=== PATIENT | female | born 1960 | race Caucasian/White ===

== ENCOUNTER → 2022-11-20 11:23 | Outpatient (REF) | payer OTHER, SELFPAY ==
[2022-11-20 13:40] LABS: Blood Urea Nitrogen 33 mg/dl (7-17); Calcium 8.5 mg/dl (8.4-10.2); Carbon Dioxide 28 mmol/L (22-30); Chloride 107 mmol/L (98-107); Glomerular Filtration Rate 41.4; Glucose 108 mg/dl (70-99); Potassium 4.2 mmol/L (3.5-5.1); Sodium 141 mmol/L (135-145)
== END ==
LOC: OLABSOL 11:23
PROVIDERS: ATTENDING PHYSICIAN Internal Medicine Interventional Cardiology; FAMILY PHYSICIAN Family Medicine
DX: R63.5 Abnormal weight gain (principal)
CPT/HCPCS: 36415; 80048

== ENCOUNTER 2023-11-09 06:38 | Inpatient (IN) | payer OTHER, SELFPAY ==
[2023-11-09] VITALS (28 sets, daily range): BP systolic 162–212; BP diastolic 77–138
--- NOTE | 2023-11-09 03:20 | ED.GENMED ---
History of Present Illness
General
Chief Complaint: Abdominal Symptoms
Source: patient and ambulance crew
Exam Limitations: none
Time Seen by Provider: 11/09/23 03:34
Travel History
Have you had any contact with someone who has COVID-19?: No
Do you have any symptoms of coronavirus? Fever > 100 degrees, chills, cough, shortness of breath, sore throat, loss of taste or smell, muscle aches, or headache?: No
History of Present Illness
History of Present Illness:
Pleasant 63-year-old female presents with nausea, vomiting, and diarrhea since 1 AM. She has been having a headache and some shortness of breath for much of the day yesterday. She noted that her blood pressure was elevated. Denies fever, chills,
or chest pain. Reports no sick contacts.
Past History
Past History
ED Past Medical History: Arrthythmia, Asthma, CHF, HTN, Hypercholesterolemia, [place], Valvular disease, Psychiatric, Other and Other
ED Past Surgical History: Gynecological, Orthopedic and Other
Patient has exhibited threatening behavior?: No
PSI?: No
Social History
Tobacco: Non-smoker
Alcohol: Former
Drug: None
Personal:
Living: assisted
Employment: Not employed
Family History
Family History: Other (Father had heart disease, mother had abdominal aortic aneurysm and also had depression. Paternal grandmother had depression)
Review of Systems
Review of Systems
Allergies reviewed?: Yes
Other source history: ambulance crew
All Other Systems: ROS reviewed and negative except as documented in HPI and ROS
ABD/GI: Reports nausea, vomiting and diarrhea
Neurological: Reports headache and weakness
Phy Exam
General Physical Exam
General Presentation: moderate distress
General age: appears older than age
General Skin: warm and dry
General Habitus: normal
General Mental: alert
General Hydration: appears well hydrated
ENT Exam
ENT Exam: EOMI, pharynx normal, neck supple and normocephalic
Eye Exam
Eye Exam: PERRL, cornea clear and conjunctiva normal
Cardiovascular Exam
Cardiovascular Exam: regular rate/rhythm
Pulmonary Exam
Pulmonary Exam: lungs clear and no respiratory distress
Gastrointestinal Exam
Gastrointestinal Exam: normal bowel sounds, non tender, soft, no organomegaly, no pulsatile mass and non distended
Neurological Exam
Neurological Exam: alert, oriented x3, no motor deficits and speech normal
Musculoskeletal Exam
Musculoskeletal Exam: other (Left upper extremity amputation and bilateral lower extremity amputation.)
Skin Exam
Skin Exam: normal color, warm/dry, no rash and no petechia
Psychiatric Exam
Psychiatric Exam: normal mood/affect
Course
Orders/Labs/Results
Orders:
Orders
11/09/23 03:18
Electrocardiogram (*1) Stat
Reason for Study: Other
Other Reason for Exam: neuro symptoms
Cardiac Monitoring- Treatment ONCE
EKG- Treatment ONCE
Dexamethasone Sod Phosphate [Decadron] 10 mg IV NOW STA
Diphenhydramine [Benadryl] 25 mg IV NOW STA
Ketorolac [Toradol] 15 mg IV NOW STA
Metoclopramide [Reglan] 10 mg IV NOW STA
11/09/23 03:29
CT Head W/o Iv Contrast Urgent
Comment:
Reason For Exam: headache HTN, vomiting
11/09/23 03:37
COVID-19 Antigen Urgent
Source: Nasal Swab
Complete Blood Count/With Diff Urgent
Comprehensive Metabolic Panel Urgent
Erythrocyte Sed Rate Urgent
Troponin I Urgent
Influenza A+B Rapid Molecular Urgent
EDU Source: Nasal Swab
Specimen Description:
11/09/23 04:21
Lorazepam [Ativan] 0.5 mg IV NOW STA
11/09/23 05:30
Admit/Transfer Patient As Directed
Co-Sign Provider:
Level of Care: Inpatient admission
Assign to:: IMU- Intermediate Care
Physician / Group: [email or web address]
Diagnosis: Acute N/V and dirrhea, HTN urgency
Reason for Hospitalization: Acute N/V and dirrhea, HTN urgency
Expected length of stay greater than two midnights?: Yes
ELOS- Estimated Length of Stay in days: 3
I certify the patient meets the requirements for IP care: Yes
11/09/23 05:33
Lorazepam [Ativan] 0.5 mg IV NOW STA
11/09/23 05:39
Code Status As Directed
Resuscitation Status: Full Code
11/09/23 05:40
Labetalol HCl [Trandate] 10 mg IV NOW STA
Abnormal Lab Results
11/09/23
03:37
WBC 14.2 H 10^3/uL
(4.8-10.8)
MCV 100.2 H fL
(81.0-99.0)
MCH 32.4 H pg
(27.0-31.0)
MCHC 32.4 L g/dL
(33.0-37.0)
MPV 10.7 H fL
(7.4-10.4)
Abs Immat Gran (auto) 0.1 H 10^3/uL
(0-0.05)
Absolute Neuts (auto) 10.6 H 10^3/uL
(1.4-6.5)
Absolute Monos (auto) 0.9 H 10^3/uL
(0.1-0.6)
Lymphocytes % 17.5 L %
(20.5-51.1)
BUN 24 H mg/dl
(7-17)
Creatinine 1.1 H mg/dL
(0.6-1.0)
Glucose 144 H mg/dl
(70-99)
Alkaline Phosphatase 149 H U/L
(38-126)
11/09/23 03:37
11/09/23 03:37
Vital Signs
Initial and Last Documented VS:
Initial Vital Signs
BP
209/102
11/09/23 03:01
Last Documented Vital Signs
Temp Pulse Resp BP Pulse Ox
98.1 F 91 18 204/95 91
11/09/23 03:05 11/09/23 04:45 11/09/23 04:45 11/09/23 04:29 11/09/23 04:45
MDM/Problems Addressed
Differential Diagnosis Includes:
Viral syndrome, migraine headache
Chronic conditions affecting care:
Migraines, strokes, A-fib, cardiac arrest, hypertension, hyperlipidemia, ACS, renal failure, renal insufficiency sepsis, DIC, anxiety, depression
*Pulse Oximetry
Patient hypoxic: no
*Critical Care Note
Total Time (30-74mins, 75-104mins- exclusive of procedures): Not Applicable
Update Note
Update Note:
Comparison July 04, 2023
CT head without contrast
IMPRESSION:
No acute intracranial abnormality. No acute territorial infarct, hemorrhage, mass effect, or midline shift. Mild micro-angiopathy.
The results were faxed/finalized only at 0435 ET. If you would like to discuss this case directly please call [phone] (extension [phone]). If you can't reach me at this number, do not leave a voicemail. Please call [phone] ext [phone] and ask for
the next available Radiologist.
Ko Beavers M.D.
This report has been electronically signed and verified by the Radiologist whose name is printed above.
ED Attending Note
-
Portions of this chart may have been created with voice recognition software.� Occasional wrong word or��sound alike� substitutions may have occurred due to the inherent limitations of voice recognition software.
Discharge Plan
Departure
Patient Disposition: Admit
Date of Disposition: 11/09/23
Time of Disposition: 05:43
Admit to: Telemetry
Presentation/result/management discussed w/ accepting MD/DO: Hospitalist
Discharge Problem:
Hypertensive urgency, Anxiety, Intractable migraine
Prescriptions:
No Action
sennosides 8.6 mg Tablet
17.2 mg PO HSPRN PRN (Reason: constipation)
trazodone 50 mg Tablet
25 mg PO HS
lorazepam 0.5 mg Tablet
0.5 mg PO BID
amitriptyline 10 mg Tablet
10 mg PO HS
pantoprazole 40 mg Tablet,Delayed Release (Dr/Ec)
40 mg PO BID
ferrous sulfate 325 mg (65 mg iron) Tablet
325 mg PO HS
gabapentin 300 mg Capsule
300 mg PO DAILY@1600
morphine 15 mg Tablet Extended Release
15 mg PO Q12H
albuterol sulfate 90 mcg/actuation Hfa Aerosol Inhaler
1 puff INHALATION R Q4HPRN PRN (Reason: sob)
duloxetine 60 mg Capsule,Delayed Release(Dr/Ec)
60 mg PO DAILY
gabapentin 600 mg Tablet
600 mg PO HS
docusate sodium 100 mg Capsule
100 mg PO DAILYPRN PRN (Reason: constipation)
gabapentin 100 mg Capsule
100 mg PO DAILY
lactulose 10 gram/15 mL Solution
15 ml PO DAILYPRN PRN (Reason: constipation)
betamethasone dipropionate 0.05 % cream
1 applic topical BIDPRN PRN (Reason: external inferior edema)
nitroglycerin 0.4 mg Tablet, Sublingual
0.4 mg SUBLINGUAL [id number] PRN (Reason: acute angina)
ergocalciferol (vitamin D2) 1,250 mcg (50,000 unit) Capsule
1,250 mcg PO FR
oxycodone 5 mg Tablet
5 mg PO Q6HPRN PRN (Reason: severe pain)
iwhcednymr-vvwnyimuchfyo-ofkw 50-300-40 mg Capsule
2 cap PO Q8HPRN PRN (Reason: headaches)
fluticasone propion-salmeterol 232-14 mcg/actuation Aerosol Powdr Breath Activated
1 inh INHALATION R BID
nifedipine 30 mg Tablet Extended Release 24hr
30 mg PO DAILY
aspirin 81 mg Tablet,Delayed Release (Dr/Ec)
81 mg PO DAILY
wurbipfnjk-mqboldnqbyrai-aort 50-325-40 mg Tablet
2 tab PO Q8HPRN PRN (Reason: headaches)
clonidine HCl 0.2 mg Tablet
0.4 mg PO BID
cyanocobalamin (vitamin B-12) 500 mcg Tablet
1,000 mcg PO DAILY
hydralazine 50 mg Tablet
50 mg PO TID
labetalol 300 mg Tablet
300 mg PO BID
prazosin 2 mg Capsule
2 mg PO HS
Rx Instructions:
07/04/2023, give with one 1 mg Prazosin capsule for a total of 3 mg HS.
rosuvastatin 10 mg Tablet
10 mg PO QPM
Cepacol Sore Throat 15-2.6 mg Lozenge
1 robina MUCOUS MEMBRANE Q6HPRN PRN (Reason: throat pain)
xzqtdqfrhd-tppfypldcsuih-rwld 50-300-40 mg Capsule
2 cap PO BID
Sore Throat (benzocaine-menth) 15-3.6 mg Lozenge
1 robina MUCOUS MEMBRANE Q2H PRN (Reason: throat pain)
prazosin 1 mg capsule
1 mg PO HS
Rx Instructions:
07/04/2023, give with one 2 mg Prazosin capsule for a total of 3 mg HS.
Referrals:
Abbie Bartholomew, DO [Family Provider] -
Interventions
Interventions:
*Risk Screen - Suicide Last Done: 11/09/23 03:09
*General Assessment Last Done: 11/09/23 03:09
*Neglect/Abuse Screening Last Done: 11/09/23 03:12
ED- Fall Risk Assessment Last Done: 11/09/23 03:12
*ED COVID-19 Vaccine History Last Done: 11/09/23 03:12
US-Vmxrse-Ypjzqfsduj Assessment Last Done: 11/09/23 03:30
[2023-11-09] MEDS: TORADOL 15 MG IV (03:25)
[2023-11-09] MEDS: REGLAN 10 MG IV (03:27)
[2023-11-09] MEDS: DECADRON 10 MG IV (03:27)
[2023-11-09] MEDS: BENADRYL 25 MG IV (03:27)
[2023-11-09 03:46] LABS: % Basophils 0.3 % (0-2); % Eosinophils 1.1 % (0-6); % Immature Granulocytes 0.4 % (0-0.5); % Lymphocytes 17.5 % (20.5-51.1); % Monocytes 6.1 % (1.7-9.3); % Neutrophils 74.6 % (42.2-75.2); Absolute Eosinophils 0.2 10^3/uL (0-0.7); Absolute Immature Granulocytes 0.1 10^3/uL (0-0.05); Absolute Lymphocytes 2.5 10^3/uL (1.2-3.4); Absolute Monocytes 0.9 10^3/uL (0.1-0.6); Absolute Neutrophils 10.6 10^3/uL (1.4-6.5); Hematocrit 44.2 % (37.0-47.0); Hemoglobin 14.3 g/dL (12.0-16.0); Mean Corp Hgb Conc. 32.4 g/dL (33.0-37.0); Mean Corpuscular Hgb 32.4 pg (27.0-31.0); Mean Corpuscular Volume 100.2 fL (81.0-99.0); Mean Platelet Volume 10.7 fL (7.4-10.4); Nucleated Red Blood Cells % 0 %; Platelet Count 188 10^3/uL (130-400); Red Blood Cell Count 4.41 10^6/uL (4.20-5.40); Red Cell Dist. Width 12.3 % (11.5-14.5); White Blood Cell Count 14.2 10^3/uL (4.8-10.8)
[2023-11-09 04:04] LABS: Erythrocyte Sed Rate 9 mm/hour (0-20)
[2023-11-09 04:05] LABS: ALT (SGPT) 15 U/L (0-35); AST (SGOT) 23 U/L (14-36); Albumin 4.5 g/dl (3.5-5.0); Alkaline Phosphatase 149 U/L (38-126); Blood Urea Nitrogen 24 mg/dl (7-17); COVID-19 Antigen Negative (Negative); Calcium 9.6 mg/dl (8.4-10.2); Carbon Dioxide 22 mmol/L (22-30); Chloride 107 mmol/L (98-107); Glucose 144 mg/dl (70-99); Potassium 4.3 mmol/L (3.5-5.1); Sodium 141 mmol/L (135-145); Total Bilirubin 0.3 mg/dl (0.2-1.3); Total Protein 7.5 g/dl (6.3-8.2); eGFR 56.11
[2023-11-09 04:16] LABS: Troponin I < 0.012 ng/ml
[2023-11-09] MEDS: ATIVAN 0.5 MG IV ×2 (04:27→05:47)
--- NOTE | 2023-11-09 05:22 | HPS.HSE ---
Family Physician
-
Family Physician: Abbie Bartholomew, DO
Chief Complaint
-
N/V/D
History of Present Illness
63M NH Res HX Longstanding hypertension on multiple Meds , B/l ANGELICA , Prx AF on Eliquis, HX septic shock with MODS with transient HD needs, PEA, bilateral lower extremity BKA, left hand/forearm amputation 2015 pw acute N/V and non bloody watery
diarrhea since 1 am.
Associated with MCADAMS. Reports labile BP elevation
Denies sick contact.
Denied fever and chills
Medical History
Past Medical History
Past Medical History: Reports Other
Additional Past Medical History:
CKD 3a at baseline (1.1-1.2 mg/DL)
Left renal atrophy
ANGELICA (70% left, 50% right)
Recurrent asthma exacerbation
Generalized atherosclerosis and PAD
Septic shock with MOSF with transient HD needs, PEA, bilateral lower extremity BKA, left hand/forearm amputation 2015
Bilateral adrenal hyperplasia
Paroxysmal AF on Eliquis
Chronic pain, narcotic dependent
HX CVA
Depression
HX urosepsis 2015
Ch HF pEF
Longstanding hypertension with suspected secondary component, never identified
Calcium oxalate nephrolithiasis
Past Surgical History: Reports Other
Additional Past Surgical History:
bilateral lower extremity BKA, left hand/forearm amputation 2015
Social History
Tobacco: Non-smoker
Alcohol: Former
Drug: None
Living: Penitentiary
Family History
Family History: Other (Father had heart disease, mother had abdominal aortic aneurysm and also had depression. Paternal grandmother had depression)
Allergies / Home Medications
Allergies reflects when Allergies were last updated in [facility].
Home Medications with original date entered in [facility]
Allergy/Medication List:
Allergies
Allergy/AdvReac Type Severity Reaction Status Date / Time
clarithromycin [From Biaxin] Allergy Rash Verified 07/04/23 06:10
ipratropium [From Atrovent] Allergy Rash Verified 07/04/23 06:10
ipratropium bromide Allergy Rash; Verified 07/04/23 06:10
[From Atrovent] added 2014
but has
tolerated
as part of
duoneb
since
ofloxacin [From Floxin] Allergy Rash Verified 07/04/23 06:10
shellfish derived Allergy Rash Verified 07/04/23 06:10
Home Medications
albuterol sulfate 90 mcg/actuation aerosol inhaler 1 puff inhalation R Q4HPRN PRN sob 06/29/22
amitriptyline 10 mg tablet 10 mg PO HS Mental Health/Anxiety 06/29/22
docusate sodium 100 mg capsule 100 mg PO DAILYPRN PRN constipation 06/29/22
duloxetine 60 mg capsule,delayed release 60 mg PO DAILY Mental Health/Anxiety 06/29/22
ferrous sulfate 325 mg (65 mg iron) tablet 325 mg PO HS Supplement 06/29/22
gabapentin 100 mg capsule 100 mg PO DAILY Pain 06/29/22
gabapentin 300 mg capsule 300 mg PO DAILY@1600 Pain 06/29/22
gabapentin 600 mg tablet 600 mg PO HS Pain 06/29/22
lactulose 10 gram/15 mL oral solution 15 ml PO DAILYPRN PRN constipation 06/29/22
lorazepam 0.5 mg tablet 0.5 mg PO BID Mental Health/Anxiety 06/29/22
morphine 15 mg tablet,extended release 15 mg PO Q12H Pain 06/29/22
pantoprazole 40 mg tablet,delayed release 40 mg PO BID Gastrointestinal Issue 06/29/22
sennosides 8.6 mg tablet 17.2 mg PO HSPRN PRN constipation 06/29/22
trazodone 50 mg tablet 25 mg PO HS sleep 06/29/22
betamethasone dipropionate 0.05 % topical cream 1 applic topical BIDPRN PRN external inferior edema 09/29/22
ergocalciferol (vitamin D2) 1,250 mcg (50,000 unit) capsule 1,250 mcg PO FR Supplement 10/13/22
nitroglycerin 0.4 mg sublingual tablet 0.4 mg sublingual [id number] PRN acute angina 10/13/22
oxycodone 5 mg tablet 5 mg PO Q6HPRN PRN severe pain 11/22/22
cduoqbtxlx-oqieqbzdmymir-ronzedvj 50 mg-300 mg-40 mg capsule 2 cap PO Q8HPRN PRN headaches 02/07/23
fluticasone 232 mcg-salmeterol 14 mcg/actuation breath activated powdr 1 inh inhalation R BID Lung/Breathing Issues 03/28/23
aspirin 81 mg tablet,delayed release 81 mg PO DAILY Blood Clot Prevention/Tx 07/04/23
benzocaine 15 mg-menthol 3.6 mg lozenges (Sore Throat (benzocaine with menthol)) 1 robina mucous membrane Q2H PRN throat pain 07/04/23
qrovrzjipn-mqmcrsa-flxtpuuwjodth 15 mg-2.6 mg lozenges 1 robina mucous membrane Q6HPRN PRN throat pain 07/04/23
thddwviamy-iiprkyffqwcsr-cvmaorzw 50 mg-300 mg-40 mg capsule 2 cap PO BID headaches 07/04/23
edjuzpundp-uuyongtyuntpd-ljjghlyq 50 mg-325 mg-40 mg tablet 2 tab PO Q8HPRN PRN headaches 07/04/23
clonidine HCl 0.2 mg tablet 0.4 mg PO BID Blood Pressure 07/04/23
cyanocobalamin (vitamin B-12) 500 mcg tablet 1,000 mcg PO DAILY Supplement 07/04/23
hydralazine 50 mg tablet 50 mg PO TID Blood Pressure 07/04/23
labetalol 300 mg tablet 300 mg PO BID Blood Pressure 07/04/23
nifedipine 30 mg tablet,extended release 24 hr 30 mg PO DAILY Blood Pressure 07/04/23
prazosin 1 mg capsule 1 mg PO HS Blood Pressure 07/04/23
prazosin 2 mg capsule 2 mg PO HS Blood Pressure 07/04/23
rosuvastatin 10 mg tablet 10 mg PO QPM High Cholesterol 07/04/23
Review of Systems
-
Constitutional: Reports No Symptoms
EENT: Reports No Symptoms
Respiratory: Reports No Symptoms
Cardiac: Reports No Symptoms and Other (HTN urgency )
Abdomen/GI: Reports See HPI, Nausea, Vomiting and Diarrhea
: Reports No Symptoms
Musculoskeletal: Reports No Symptoms
Skin: Reports No Symptoms
Neurological: Reports No Symptoms
Endocrine: Reports No Symptoms
Hematologic/Lymphatic: Reports No Symptoms
Psych: Reports No Symptoms
Physical Exam
Vital Signs
Vital Signs
Temp Pulse Resp BP Pulse Ox
98.1 F 91 18 204/95 91
11/09/23 03:05 11/09/23 04:45 11/09/23 04:45 11/09/23 04:29 11/09/23 04:45
Physical Exam
General: Well Developed, Well Nourished, No Apparent Distress and Other (pleasant )
HEENT: NormoCephalic and Anicteric
Respiratory: Clear; No Wheezes or Rales
Cardiac: S1/S2 and Regular Rhythm; No Tachycardia
GI: Soft, Non Tender, Non Distended and Normal Bowel Sounds
Genito-urinary: Deferred by me
Musculoskeletal: Other (Left upper extremity amputation plus bilateral lower extremity amputation)
Skin: Warm
Neuro: AO x 3
Psych: Calm
Laboratory Results
-
11/09/23 03:37
11/09/23 03:37
Laboratory Results
Total Bilirubin 0.3 mg/dl (0.2-1.3) 11/09/23 03:37
AST 23 U/L (14-36) 11/09/23 03:37
ALT 15 U/L (0-35) 11/09/23 03:37
Alkaline Phosphatase 149 U/L (38-126) H 11/09/23 03:37
Troponin I < 0.012 ng/ml 11/09/23 03:37
Data Reviewed
-
CT Scan: Report Reviewed by me
Lab Data: Labs Reviewed by me
Old Records: Reviewed
Impression/Plan
-
Reviewed VS: afebrile HR 80s BP 200s/100 POx low 90s on RA
Data
WCC 14.2
Hgb 14s MCV 100
Cr 1.1 baseline at 1.1-1.2
e GFR 56 -CKD 3a
NEG TPNI
NEG Covid
HCT : No acute pathology
Last hospitalist admission: 06/10/23 - 06/19/23
DC Dxs: AE Asthma, JN
ASSESSMENT & PLAN
Pending Rx reconciliation
Acute N/V non bloody watery diarrhea DDX: Infective - virus vs bacterial
Leucocytosis, AFEBRILE
- Denies sick contact
- Norovirus PCR, stool for Cx
- clear and ADAT
HTN urgency - suspect due to incomplete GI absorption PO Meds due to vomiting and diarrhea
HX Longstanding hypertension with suspected secondary component, never identified
HX ANGELICA(70% left, 50% right)
Left renal atrophy
- IV Hydralazine in place of PO
- clonidine TTS in place of PO
- IV Labetalol PRN for SBP > 185, DBP > 110
- Observe BP
- Renal consult
CKD 3
- Creatinine stable
HX chr HFpEF: clinically not in acute HF
- Daily weight and I/O
- cont. CRM ANALYST Jardiance
- held Lasix due to acute diarrhea
HX Paroxysmal A-fib
- cont CRM ANALYST Eliquis
Anxiety depression insomnia HX
- cont duloxetine amitriptyline Ativan Seroquel when tolerates PO
HX migraine
- Fioricet PRN
HX Recurrent asthma : No acute flare
COVID flu negative
- Xopenex scheduled and as needed due to tachycardia
- cont. home scheduled inhalers
Chronic pain, narcotic dependent
- on CRM ANALYST PO morphine 15 mg tablet,extended release 15 mg PO Q12H Pain
- IV Morphine PRN while vomiting
Prediabetes HX
Morbid obesity.
DVT prophylaxis Eliquis
Full code
IMU
[2023-11-09] MEDS: TRANDATE 10 MG IV ×2 (05:46→17:30)
--- NOTE | 2023-11-09 07:02 | EDRN ---
Unable to confirm home medication list at this time. Patient poor historian regarding medications. Informing RN of different medications than what is listed on Resident Face Sheet Profile from [facility]. Will refer to pharmacist to verify
medication list.
--- NOTE | 2023-11-09 09:24 | W.PN.UPDATE ---
Addendum entered and electronically signed by Shailesh Barrera MD 11/09/23 09:42:
correction; CXR only
Original Note:
Update Note
Progress Note Update
Nonbillable note
admitted around 5 AM - with N/V, abd discomfort, nonbloody water diarrhea. Patient also with HTN urgency in setting of inability to take meds. She reports some congestion and cough as well. She states she gets all these symptoms globally when her BP
is high. At present BP is 190s/90s. She feels like she may be able to take her PO meds. She follows with Dr. Hernandez of [facility].
COVID/Flu negative.
Plan: Plan: as documented by animal biologist, await stool studies. Supportive care, pain control, anti-emetics. check AXR. Given cough - check CXR
For BP, she is willing to try her PO meds with sips of clears - will attempt now with x 1 doses pending home med rec. Nephrology consulted.
[2023-11-09] MEDS: FIORICET 1 TAB PO ×2 (10:26→11:32)
[2023-11-09] MEDS: PROCARDIA XL (EXTENDED RELEASE) 30 MG PO (10:26)
[2023-11-09] MEDS: TRANDATE 300 MG PO (10:27)
[2023-11-09] MEDS: APRESOLINE 50 MG PO (10:27)
[2023-11-09] MEDS: CATAPRES-TTS-1 0.100000000000000006 MG TRANSDERM (10:29)
[2023-11-09] MEDS: MORPHINE SULFATE 2 MG IV (10:34)
--- NOTE | 2023-11-09 13:59 | PTOTSP ---
ST Evaluation
Mild/functional oral dysphagia d/t lack of dentition. Currently working on getting dentures
Pt received awake/alert sitting upright in stretcher. She is labile/tearful throughout eval, RN aware. Self fed trials of regular solids and thin liquids. Demo grossly functional mastication and bolus was orally cleared. Thin liquids by straw sip
swallow appears timely. No overt s/sx of aspiration observed during this eval.
Recommend
1. Regular solids/thin liquids - pt to select softer items from menu as needed
2. Standard aspiration and HAJA/reflux precautions
3. Meds with sips of water
4. No further acute INFRASTRUCTURE ENGINEER needs. INFRASTRUCTURE ENGINEER signing off please reconsult as needed
[2023-11-09] MEDS: ZOFRAN ODT (ORALLY DISINTEGRATING) 4 MG PO ×2 (14:02→21:20)
[2023-11-09] MEDS: ELIQUIS 5 MG PO ×2 (14:03→19:47)
[2023-11-09] MEDS: ATIVAN 0.5 MG PO ×2 (14:03→19:47)
[2023-11-09] MEDS: MS CONTIN (EXTENDED RELEASE) 15 MG PO (14:07)
--- NOTE | 2023-11-09 15:41 | W.CON.NEPH ---
Consultation
-
Date/Time Consultation Requested: 11/09/23 0930
Date/Time Consultation Performed: 11/09/23 1550
Requesting Provider: Dr Shailesh Pires
Performing Provider: Heron Owen
Reason for Consultation: HTN urgency
Medical History
-
Chief Complaint: n/v/d
History of Present Illness:
63M NH Res HX Longstanding hypertension on multiple Meds , B/l ANGELICA right renal atrophy, CKD 3a, follows Dr Daniels, Prx AF on Eliquis,DCHF not on lasix, HX septic shock with MODS with transient HD needs, PEA, bilateral lower extremity BKA, left
hand/forearm amputation 2015, pw acute N/V and non bloody watery diarrhea since 1 am. SHe noted to have BP in 200 range with MCADAMS on arrival and remains high in 180 hence Nephrology consulted. Her cr is at 1.1 at baseline. Pt replots being treated
with courses of abx for left AKA stump cellulitis and had diarrhea with few weeks ago. Denies any abd pain. She also had high BPs lately and associated with n/v when it is above 200. COnt to have MCADAMS, she started on clonidine patch in ER. Denies sick
contact.Denied fever and chills. Feels congested in chest but no sob.
Past Medical History
1.� Longstanding hypertensions at times accelerated.
2.� CKD 3b with atrophic left kidney.
3.� History of bilateral adrenal hyperplasia with elevated
�� � norepinephrine and dopamine levels.
4.� Depression.
5.� CVA.
6.� Heart failure with preserved EF.
7.� Chronic pain, narcotic dependent.
8.� Paroxysmal atrial fibrillation on Eliquis.
9.� Asthma, recurrent.
10. 70% left renal artery stenosis, 50% right renal artery
� � � stenosis.
11. Generalized atherosclerosis in PAD.
12. Calcium oxalate nephrolithiasis.
13. Septic shock with multiorgan system failure in the setting of
� � � obstructing urinary tract stone requiring transient HD, status
� � � post PEA, bilateral lower extremity BKA, left hand/forearm
� � � amputation in 2016.
14. Calcium oxalate nephrolithiasis.
15. Anxiety.
16. Migraines.
17. Exploratory laparotomy.
18. Right proximal humeral fracture requiring ORIF.
Social History
�resides in assisted living. She does not smoke.
She does not consume alcohol. She is a former financial analyst accountant.
Family History
Father from complications of cardiac disease, also had hypertension. Mother from complications of AAA, pulmonary embolus, and hypertension.
Allergies / Home Medications
Allergy/AdvReac Type Severity Reaction Status Date / Time
clarithromycin [From Biaxin] Allergy Rash Verified 11/09/23 10:14
ipratropium [From Atrovent] Allergy Rash Verified 11/09/23 10:14
ipratropium bromide Allergy Rash; Verified 11/09/23 10:14
[From Atrovent] added 2014
but has
tolerated
as part of
duoneb
since
ofloxacin [From Floxin] Allergy Rash Verified 11/09/23 10:14
shellfish derived Allergy Rash Verified 11/09/23 10:14
Medication Instructions Recorded Confirmed Type
albuterol sulfate 90 mcg/actuation 1 puff inhalation R Q4HPRN PRN sob 06/29/22 11/09/23 History
aerosol inhaler
amitriptyline 10 mg tablet 10 mg PO DAILY@2000 Mental 06/29/22 11/09/23 History
Health/Anxiety
docusate sodium 100 mg capsule 200 mg PO DAILY 06/29/22 11/09/23 History
duloxetine 60 mg capsule,delayed 60 mg PO DAILY@0900 Mental 06/29/22 11/09/23 History
release Health/Anxiety
ferrous sulfate 325 mg (65 mg 325 mg PO HS Supplement 06/29/22 11/09/23 History
iron) tablet
gabapentin 100 mg capsule 100 mg PO DAILY Pain 06/29/22 11/09/23 History
gabapentin 300 mg capsule 300 mg PO DAILY@1600 Pain 06/29/22 11/09/23 History
lactulose 10 gram/15 mL oral 30 ml PO HSPRN PRN constipation 06/29/22 11/09/23 History
solution
lorazepam 0.5 mg tablet 0.5 mg PO BID Mental Health/Anxiety 06/29/22 11/09/23 History
morphine 15 mg tablet,extended 15 mg PO Q12H Pain 06/29/22 11/09/23 History
release
pantoprazole 40 mg tablet,delayed 40 mg PO DAILY Gastrointestinal 06/29/22 11/09/23 History
release Issue
sennosides 8.6 mg tablet 17.2 mg PO HSPRN PRN constipation 06/29/22 11/09/23 History
trazodone 50 mg tablet 50 mg PO HS sleep 06/29/22 11/09/23 History
betamethasone dipropionate 0.05 % 1 applic topical BIDPRN PRN 09/29/22 11/09/23 History
topical cream external inferior edema
ergocalciferol (vitamin D2) 1,250 1,250 mcg PO FR@0800 Supplement 10/13/22 11/09/23 History
mcg (50,000 unit) capsule
nitroglycerin 0.4 mg sublingual 0.4 mg sublingual [id number] PRN 10/13/22 11/09/23 History
tablet acute angina
oxycodone 5 mg tablet 5 mg PO Q6HPRN PRN severe pain 11/22/22 11/09/23 History
fluticasone 232 mcg-salmeterol 14 1 inh inhalation R BID 03/28/23 11/09/23 History
mcg/actuation breath activated Lung/Breathing Issues
powdr
amdtxgemgl-fgnbbpalqcpsb-fuxhfrqe 2 cap PO BID@0900,1700 headaches 07/04/23 11/09/23 History
50 mg-300 mg-40 mg capsule
xfjudmsvod-ptisqywrwforv-exeyzgzc 2 tab PO BIDPRN PRN headaches 07/04/23 11/09/23 History
50 mg-325 mg-40 mg tablet
cyanocobalamin (vitamin B-12) 500 1,000 mcg PO DAILY Supplement 07/04/23 11/09/23 History
mcg tablet
prazosin 1 mg capsule 1 mg PO BID Blood Pressure 07/04/23 11/09/23 History
apixaban 5 mg tablet (Eliquis) 5 mg PO BID 11/09/23 11/09/23 History
atogepant 30 mg tablet (Qulipta) 30 mg PO DAILY 11/09/23 11/09/23 History
empagliflozin 10 mg tablet 10 mg PO DAILY 11/09/23 11/09/23 History
(Jardiance)
famotidine 20 mg tablet 20 mg PO DAILY 11/09/23 11/09/23 History
gabapentin 600 mg tablet 600 mg PO HS 11/09/23 11/09/23 History
guaifenesin 1,200 mg tablet, 1,200 mg PO [id number] PRN cough 11/09/23 11/09/23 History
extended release 12 hr (Mucinex)
hydralazine 10 mg tablet 20 mg PO BID@0700,1500 11/09/23 11/09/23 History
hydralazine 10 mg tablet 30 mg PO DAILY@2300 11/09/23 11/09/23 History
ipratropium 0.5 mg-albuterol 3 mg 3 ml inhalation R Q4HPRN PRN SOB, 11/09/23 11/09/23 History
(2.5 mg base)/3 mL nebulization cough
soln
loratadine 10 mg tablet 10 mg PO DAILY 11/09/23 11/09/23 History
metoprolol succinate 50 mg 50 mg PO BID 11/09/23 11/09/23 History
tablet,extended release 24 hr
ondansetron 4 mg disintegrating 4 mg PO Q4HPRN PRN nausea/vomiting 11/09/23 11/09/23 History
tablet
polyethylene glycol 3350 17 gram 17 g PO DAILY 11/09/23 11/09/23 History
oral powder packet
rosuvastatin 20 mg tablet 20 mg PO DAILY 11/09/23 11/09/23 History
Review of Systems
-
all other complete 12 point ROS have been inquired and found negative other than stated in HPI
Physical Exam
Vital Signs
Vital Signs
Temp Pulse Resp BP Pulse Ox
97.9 F 114 17 189/103 94
11/09/23 08:18 11/09/23 15:00 11/09/23 15:00 11/09/23 15:00 11/09/23 13:00
Lab Results
WBC 14.2 10^3/uL (4.8-10.8) H 11/09/23 03:37
RBC 4.41 10^6/uL (4.20-5.40) 11/09/23 03:37
Hgb 14.3 g/dL (12.0-16.0) 11/09/23 03:37
Hct 44.2 % (37.0-47.0) 11/09/23 03:37
Plt Count 188 10^3/uL (130-400) 11/09/23 03:37
Sodium 141 mmol/L (135-145) 11/09/23 03:37
Potassium 4.3 mmol/L (3.5-5.1) 11/09/23 03:37
Chloride 107 mmol/L (98-107) 11/09/23 03:37
Carbon Dioxide 22 mmol/L (22-30) 11/09/23 03:37
BUN 24 mg/dl (7-17) H 11/09/23 03:37
Creatinine 1.1 mg/dL (0.6-1.0) H 11/09/23 03:37
eGFR 56.11 11/09/23 03:37
Glucose 144 mg/dl (70-99) H 11/09/23 03:37
Calcium 9.6 mg/dl (8.4-10.2) 11/09/23 03:37
Albumin 4.5 g/dl (3.5-5.0) 11/09/23 03:37
CXR:
TECHNIQUE: 2 views of chest performed.
COMPARISON: 03/28/2023
FINDINGS:
Lungs: No convincing focal infiltrates. No pleural effusion or pneumothorax.
Heart: Cardiac and mediastinal contours are unremarkable. No overt pulmonary vascular congestion.
Osseous structures: No acute abnormalities.
IMPRESSION:
No acute cardiopulmonary process.
CT head;
TECHNIQUE: Unenhanced computerized tomography of the head was performed. Automated dose reduction technique was employed.
COMPARISON: 07/04/2023
FINDINGS:
The ventricles are normal in size, configuration, and position.� Brain parenchyma is normal attenuation aside from a small focus of low-attenuation in the left cerebellum consistent with an old infarct..� There is no intra- or extra-axial mass,
hemorrhage, or fluid collection.� There is no midline shift nor mass effect.� Visualized paranasal sinuses are free of mucosal disease.
IMPRESSION:
No acute intracranial abnormality noted.
Findings consistent with a small old infarct of the left cerebellum
A preliminary report was provided by [facility] radiology.
Physical Exam
General: Awake, Alert, Oriented, AOx3 and No Distress
HEENT: EOMI and Anicteric
Respiratory: Clear
Cardiac: S1/S2 and Regular Rate/Rhythm
Abdomen: Soft, Nontender and Nondistended
Musculoskeletal: Other (bilat BKA stump, left UE stump)
Skin: No Rash
Neuro: Nonfocal/Grossly Intact
Psych: Other (depressed)
Assessment/Plan
-
IMP;
Acute� N/V non bloody watery diarrhea� DDX:� Infective - virus vs bacterial
Leucocytosis, AFEBRILE
HTN urgency
CKD 3a at baseline (1.1-1.2 mg/DL)-follows DR Daniels
Left renal atrophy
ANGELICA (70% left, 50% right)
Generalized atherosclerosis and PAD
Septic shock with MOSF with transient HD needs, PEA, bilateral lower extremity BKA, left hand/forearm amputation 2015
Bilateral adrenal hyperplasia
History elevated norepinephrine and dopamine levels
Paroxysmal atrial fibrillation on Eliquis
Chronic pain, narcotic dependent
History CVA
History of urosepsis 2015
Heart failure with preserved EF-not on diuretics
Longstanding hypertension with suspected secondary component, never identified
Anxiety depression insomnia HX
HX migraine
HX Recurrent asthma
Chronic pain, narcotic dependent
Prediabetes HX
obesity
PLan:
a/w n/v/D felt GE
but has HTN urgency concern if n/v related to it, CT head neg
resume all home meds-BB, hydralzine, prozocin
clonidine patch started in ER-ok to continue will likely take time to work hopefully by kj
given that she is tachycardiac will increase BB dose to 100mg BID
titrate hydralazine as needed, if needed add CCB but cautious with concomitant dianna sina
known bilat renal art stenosis hence avoiding RAASI
unlikely need vasc intervention at this time if can control with meds
previously d/w Dr Ruff
stable renal function
with n/v/d-will give gentle IVF
check C diff with recent abx exposure
avoid NSAIDs and nephrotoxins
avoid drastic BP changes
d/w pt and primary
call substation operator conversion nephro if any questions
Data Reviewed
-
Radiology: Report Reviewed by me
Medical Tests (Nuc Med, Echo etc): Report Reviewed by me
Labs: Labs Reviewed by me, Discussed with Physician and Discussed with Patient
Old Records: Reviewed
[2023-11-09] MEDS: NEURONTIN PO (17:18)
[2023-11-09] MEDS: APRESOLINE PO (17:18)
[2023-11-09] MEDS: NSS 1000 IV (17:29)
[2023-11-09] MEDS: FIORICET 2 TAB PO (17:59)
[2023-11-09] MEDS: ELAVIL 10 MG PO (19:46)
[2023-11-09] MEDS: TOPROL XL 100 MG PO (19:47)
[2023-11-09] MEDS: MINIPRESS 1 MG PO (19:47)
[2023-11-09] MEDS: ROXICODONE 5 MG PO (20:59)
[2023-11-09] MEDS: FEOSOL PO (22:05)
[2023-11-09] MEDS: APRESOLINE 30 MG PO (22:05)
[2023-11-09] MEDS: NEURONTIN 600 MG PO (22:06)
[2023-11-09] MEDS: DESYREL 50 MG PO (22:06)
[2023-11-09] MEDS: COMPAZINE 5 MG IV (23:48)
[2023-11-10] VITALS (31 sets, daily range): BP systolic 82–189; BP diastolic 45–90; BMI 27.2
[2023-11-10] MEDS: TRANDATE 10 MG IV (00:04)
[2023-11-10] MEDS: MS CONTIN (EXTENDED RELEASE) 15 MG PO ×3 (00:07→21:00)
--- NOTE | 2023-11-10 03:32 | PTCARENOTE ---
Assumed care of Pt at shift change. PRN meds Zofran & Compazine given for nausea; Oxy given for 8/10 pain; Tearful & anxious; Pt stated repeatedly 'I don't feel right' and 'I'm scared for my health'; BP remained high around 180-200/90-110 while
patient was awake; PRN IV Labetalol administered ~ 0000 for BP of 188/90 - Pt fell asleep shortly after and BP dropped to 100-120/50-60 while she remains asleep. Will continue to monitor and assess.
[2023-11-10] MEDS: FIORICET 2 TAB PO ×3 (03:53→16:43)
[2023-11-10 04:22] LABS: Hematocrit 41.2 % (37.0-47.0); Hemoglobin 13.5 g/dL (12.0-16.0); Mean Corp Hgb Conc. 32.8 g/dL (33.0-37.0); Mean Corpuscular Hgb 31.8 pg (27.0-31.0); Mean Corpuscular Volume 97.2 fL (81.0-99.0); Mean Platelet Volume 10.4 fL (7.4-10.4); Platelet Count 212 10^3/uL (130-400); Red Blood Cell Count 4.24 10^6/uL (4.20-5.40); Red Cell Dist. Width 12.7 % (11.5-14.5); White Blood Cell Count 10.9 10^3/uL (4.8-10.8)
[2023-11-10 04:50] LABS: Blood Urea Nitrogen 24 mg/dl (7-17); Calcium 9.4 mg/dl (8.4-10.2); Carbon Dioxide 23 mmol/L (22-30); Chloride 107 mmol/L (98-107); Estimated Creatinine Clearance 47 ml/min; Glucose 122 mg/dl (70-99); Potassium 4.1 mmol/L (3.5-5.1); Sodium 139 mmol/L (135-145); eGFR 56.11
[2023-11-10] MEDS: APRESOLINE 20 MG PO ×2 (07:09→16:42)
[2023-11-10] MEDS: PEPCID 20 MG PO (08:15)
[2023-11-10] MEDS: JARDIANCE 10 MG PO (08:15)
[2023-11-10] MEDS: MINIPRESS 1 MG PO (08:15)
[2023-11-10] MEDS: PROTONIX 40 MG PO (08:15)
[2023-11-10] MEDS: CRESTOR 20 MG PO (08:15)
[2023-11-10] MEDS: CLARITIN 10 MG PO (08:15)
[2023-11-10] MEDS: CYMBALTA DELAYED RELEASE 60 MG PO (08:15)
[2023-11-10] MEDS: ELIQUIS 5 MG PO ×2 (08:15→21:00)
[2023-11-10] MEDS: NEURONTIN 100 MG PO (08:15)
[2023-11-10] MEDS: ATIVAN 0.5 MG PO ×2 (08:15→21:00)
[2023-11-10] MEDS: TOPROL XL 100 MG PO (08:16)
--- NOTE | 2023-11-10 09:20 | W.PN.NEPH.PH ---
Today's Communication / Plan
-
Observe on current antihypertensive regimen
Assessment/Plan
-
IMP;
Acute� N/V non bloody watery diarrhea� DDX:� Infective - virus vs bacterial
Leucocytosis, AFEBRILE
HTN urgency
CKD 3a at baseline (1.1-1.2 mg/DL)-follows DR Daniels
Left renal atrophy
ANGELICA (70% left, 50% right)
Generalized atherosclerosis and PAD
Septic shock with MOSF with transient HD needs, PEA, bilateral lower extremity BKA, left hand/forearm amputation 2015
Bilateral adrenal hyperplasia
History elevated norepinephrine and dopamine levels
Paroxysmal atrial fibrillation on Eliquis
Chronic pain, narcotic dependent
History CVA
History of urosepsis 2015
Heart failure with preserved EF-not on diuretics
Longstanding hypertension with suspected secondary component, never identified
Anxiety depression insomnia HX
HX migraine
HX Recurrent asthma
Chronic pain, narcotic dependent
Prediabetes HX
obesity
PLan:
a/w n/v/D felt GE
but has HTN urgency concern if n/v related to it, CT head neg
resumed all home meds-BB, hydralzine, prozocin
clonidine patch started in ER-ok to continue will likely take time to work hopefully by kj
given that she is tachycardiac BB dose to 100mg BID
titrate hydralazine as needed, if needed add CCB but cautious with concomitant dianna sina
known bilateral renal artery stenosis hence avoiding RAASI
unlikely need vasc intervention at this time if can control with meds
previously d/w Dr White
stable renal function at 1.1
with n/v/d-will give gentle IVF
check C diff with recent abx exposure
avoid NSAIDs and nephrotoxins
avoid drastic BP changes
-
-
Date of Service: November 10, 2023
CC / HPI / ROS
-
Chief Complaint:
Hypertension
History of Present Illness:
Blood pressure with improved control on clonidine hydralazine prazosin metoprolol
Creatinine stable at 1.1
Review of Systems:
non oliguric
no more GI symptoms
remains on nc
Labs
-
Labs:
WBC 10.9 10^3/uL (4.8-10.8) H 11/10/23 04:11
RBC 4.24 10^6/uL (4.20-5.40) 11/10/23 04:11
Hgb 13.5 g/dL (12.0-16.0) 11/10/23 04:11
Hct 41.2 % (37.0-47.0) 11/10/23 04:11
Plt Count 212 10^3/uL (130-400) 11/10/23 04:11
Sodium 139 mmol/L (135-145) 11/10/23 04:11
Potassium 4.1 mmol/L (3.5-5.1) 11/10/23 04:11
Chloride 107 mmol/L (98-107) 11/10/23 04:11
Carbon Dioxide 23 mmol/L (22-30) 11/10/23 04:11
BUN 24 mg/dl (7-17) H 11/10/23 04:11
Creatinine 1.1 mg/dL (0.6-1.0) H 11/10/23 04:11
eGFR 56.11 11/10/23 04:11
Glucose 122 mg/dl (70-99) H 11/10/23 04:11
Calcium 9.4 mg/dl (8.4-10.2) 11/10/23 04:11
Albumin 4.5 g/dl (3.5-5.0) 11/09/23 03:37
Physical Exam
-
Vital Signs:
Vital Signs
Temp Pulse Resp BP Pulse Ox
97.8 F 81 22 140/66 90
11/10/23 07:16 11/10/23 08:16 11/10/23 07:00 11/10/23 08:16 11/10/23 08:33
Cardiovascular:: Regular rate and rhythm
Respiratory:: Bilateral: Coarse
Lung Excursion:: Normal
Abdomen:: Nontender and Soft
Bowel Sounds:: None
Extremity Edema:: None: Bilateral: (bilateral AKA)
White Catheter: No
--- NOTE | 2023-11-10 10:34 | PTCARENOTE ---
Assumed care of patient this morning. Pt reports she feel better than yesterday. Reports nausea is better but still present. She was able to take morning medications and have some of her clear liquid tray, including broth. No vomiting or diarrhea
overnight. BP improved but now soft at 100/58. Pt remains on 1L O2. Attempted to wean to RA, but pt dropping to 87%. Pt is a shallow breather. Pt has no complaints at this time. Assessment, care and VS as charted.
--- NOTE | 2023-11-10 10:56 | W.PN.HOSP.TC ---
Today's Communication/Plan
-
Advance diet
Transfer to tele
Assessment / Plan
Assessment / Plan
Acute� N/V non bloody watery diarrhea�
Associated leukocytosis without fever
Seems self-limiting. Resolved now.
- Denies sick contact
-Stool culture including norovirus PCR, C. difficile and stool WBCs negative
-She seems to think it is associated with elevated blood pressure and she has noticed this in the past.
-Advance diet
HTN urgency
HX Longstanding hypertension with suspected secondary component, never identified
HX ANGELICA(70% left, 50% right)
Left renal atrophy
-Improved blood pressure today. Patient compliant with her medication. She lives in [place] and nursing gives her medications
- Renal consult noted and appreciated
-Patient with longstanding hypertension with labile blood pressures with associated nonspecific symptoms ? Role of renal artery stenosis ? Evaluate for other secondary causes. Will discuss with nephrology
CKD 3
- Creatinine stable
HX chr HFpEF: clinically not in acute HF
- Daily weight and I/O
- cont. FILENET ARCHITECT Jardiance
- She takes lasix prn
HX Paroxysmal A-fib
- cont FILENET ARCHITECT Eliquis
Anxiety depression insomnia HX
- cont� duloxetine amitriptyline Ativan Seroquel when tolerates PO
HX migraine
-� Fioricet PRN
HX Recurrent asthma :� No acute flare
COVID flu negative
- Xopenex scheduled and as needed due to tachycardia
- cont.� home scheduled inhalers
Chronic pain, narcotic dependent
- on FILENET ARCHITECT PO morphine 15 mg tablet,extended release 15 mg PO Q12H Pain
- IV Morphine PRN while vomiting
Prediabetes HX
Morbid obesity.
DVT prophylaxis Eliquis
Full code
Tx to tele
Anticipated Discharge: 24 - 48 hours
Subjective/Interval History
-
Date of Service: November 10, 2023
With improved blood pressure, patient says she feels improved in general as well.
Whenever her blood pressure is labile and high she has associated symptoms of sometimes nausea, sometimes loose bowel movements, sometimes headache sometimes sweating.
Tolerating clear liquid diet.
No fever or chills.
She feels her mood was labile and she was tearful with what is going on but does not think she needs to see a psychiatrist.
Objective Data
-
Labs:
Laboratory Results
11/10/23
04:11
WBC 10.9 H
Hgb 13.5
Hct 41.2
Plt Count 212
Sodium 139
Potassium 4.1
Chloride 107
Carbon Dioxide 23
BUN 24 H
Creatinine 1.1 H
Glucose 122 H
Calcium 9.4
Vital Signs:
Vital Signs
Temp Pulse Resp BP Pulse Ox
97.8 F 65 15 100/58 94
11/10/23 07:16 11/10/23 10:04 11/10/23 10:04 11/10/23 10:04 11/10/23 10:04
I&O
11/09/23 11/10/23 11/11/23
06:59 06:59 06:59
Output Total 200 / 200
Balance -200 / -200
Review of Systems
-
Constitutional: Denies Fever
Respiratory: Denies Cough or Trouble Breathing
Cardiac: Denies Chest Pain
Abdomen/GI: Denies Abdominal Pain, Nausea or Diarrhea
Neuro: Denies Dizzy
Physical Exam
-
General: No Apparent Distress
HEENT: Moist Mucous Membranes
Respiratory: Wheezes (but not SOB) and Non Labored Respirations; Negative Accessory Resp Muscle Use
Cardiac: Regular Rhythm and S1/S2
GI: Soft and Nontender
Neuro: AO x 3; Negative Tremors
Psych: Calm
Data Reviewed
-
Labs: Labs Reviewed by me
--- NOTE | 2023-11-10 13:44 | CM ---
CM following re: discharge planning.
Reviewed pt's chart, met with pt.
Pt is a 63 year old female, admitted with primary dx of Acute� N/V
Pt is well known to this CM from previous admissions. Pt was born and grew up in [facility] [place], emigrated to [place] 25 years ago, has supportive daughter. [facility]. The patient uses a motorized power
chair for ambulation, has a BSC and nebulizer machine and [facility] staff provides all necessary care pt needs. Patient has had [facility] in the past and been to [place] and [facility]. The patient anticipates being discharged back [facility] when
medically stable.
PCP: Mahesh Amanda
Pharmacy: [facility]
D/C plan: [facility] medically [facility].
CM will follow with discharge plan updates as hospitalization progresses
--- NOTE | 2023-11-10 14:10 | WOUNDNOTE ---
WON RN note: Patient admitted with hypertensive urgency and anxiety.
See H&P for complete history. Lives at [facility], uses motorized W/C.
PMH: CVA,CHF,HTN,NH,PAD, Urosepsis 6 yrs ago, developed circulation issues in legs and L arm requiring B/L BKA and L hand/forearm amputation 2016.
Wound Location and type/assessment: Patient admitted with: L BKA stump with trauma wound that patient states she got from accidentally banging stump into furniture while driving w/c. Normally patient states she is independent with transfers. Mostly
scabbed, medial portion is moist and weeping serous drainage. Medial part of stump also red, soft and boggy. Patient reports pain upon palpation. Nurse Anali confirms that sacrum is intact.
Appetite: Good.
Pressure redistribution devices in place: Centrella air bed, can turn self.
Plan: L stump clean with saline, small silicone foam change daily and prn drainage. Monitor site for increased swelling and pain. Notified Dr. Tang of the above assessment regarding L stump, recommended ultrasound to check for fluid collection at
site. Defer to Dr. Tang if further testing appropriate. Will confirm orders with hospitalist and update nurse. Updated care plan and will follow as needed.
Note to case management of equipment requested for discharge: None.
Recommend follow up at wound care center if does not heal, upon discharge.
[2023-11-10] MEDS: NEURONTIN 300 MG PO (16:42)
[2023-11-10] MEDS: NSS 1000 IV (16:44)
[2023-11-10] MEDS: TOPROL XL PO (20:55)
[2023-11-10] MEDS: MINIPRESS PO (20:55)
[2023-11-10] MEDS: APRESOLINE PO (20:56)
[2023-11-10] MEDS: ELAVIL 10 MG PO (21:00)
[2023-11-10] MEDS: DESYREL 50 MG PO (21:00)
[2023-11-10] MEDS: FEOSOL 325 MG PO (21:00)
[2023-11-10] MEDS: NEURONTIN 600 MG PO (21:01)
[2023-11-11] VITALS (17 sets, daily range): BP systolic 82–154; BP diastolic 41–109; BMI 28.2
--- NOTE | 2023-11-11 00:32 | PTCARENOTE ---
Patient with soft BPs- all BP hs meds held and continues to be low. call specialist provider made aware and reordered NS @ 60ml/hr.
[2023-11-11] MEDS: FIORICET 2 TAB PO ×3 (03:43→14:40)
[2023-11-11] MEDS: NSS 1000 IV (03:45)
[2023-11-11 04:30] LABS: Blood Urea Nitrogen 28 mg/dl (7-17); Calcium 8.5 mg/dl (8.4-10.2); Carbon Dioxide 24 mmol/L (22-30); Chloride 110 mmol/L (98-107); Estimated Creatinine Clearance 40 ml/min; Glucose 99 mg/dl (70-99); Potassium 4.5 mmol/L (3.5-5.1); Sodium 136 mmol/L (135-145); eGFR 45.92
[2023-11-11] MEDS: APRESOLINE PO (07:53)
[2023-11-11] MEDS: MINIPRESS PO (08:40)
[2023-11-11] MEDS: PEPCID 20 MG PO (08:41)
[2023-11-11] MEDS: TOPROL XL 100 MG PO ×2 (08:41→20:11)
[2023-11-11] MEDS: PROTONIX 40 MG PO (08:41)
[2023-11-11] MEDS: NEURONTIN 100 MG PO (08:41)
[2023-11-11] MEDS: ATIVAN 0.5 MG PO ×2 (08:41→20:09)
[2023-11-11] MEDS: CRESTOR 20 MG PO (08:42)
[2023-11-11] MEDS: MS CONTIN (EXTENDED RELEASE) 15 MG PO ×2 (08:42→20:10)
[2023-11-11] MEDS: JARDIANCE 10 MG PO (08:42)
[2023-11-11] MEDS: CLARITIN 10 MG PO (08:42)
[2023-11-11] MEDS: CYMBALTA DELAYED RELEASE 60 MG PO (08:46)
[2023-11-11] MEDS: ELIQUIS 5 MG PO ×2 (08:47→20:09)
--- NOTE | 2023-11-11 08:58 | W.PN.NEPH.PH ---
Today's Communication / Plan
-
Decrease hydralazine to 10 mg 3 times daily
Assessment/Plan
-
IMP;
Acute� N/V non bloody watery diarrhea� DDX:� Infective - virus vs bacterial
Leucocytosis, AFEBRILE
HTN urgency
CKD 3a at baseline (1.1-1.2 mg/DL)-follows DR Daniels
Left renal atrophy
ANGELICA (70% left, 50% right)
Generalized atherosclerosis and PAD
Septic shock with MOSF with transient HD needs, PEA, bilateral lower extremity BKA, left hand/forearm amputation 2015
Bilateral adrenal hyperplasia
History elevated norepinephrine and dopamine levels
Paroxysmal atrial fibrillation on Eliquis
Chronic pain, narcotic dependent
History CVA
History of urosepsis 2015
Heart failure with preserved EF-not on diuretics
Longstanding hypertension with suspected secondary component, never identified
Anxiety depression insomnia HX
HX migraine
HX Recurrent asthma
Chronic pain, narcotic dependent
Prediabetes HX
obesity
PLan:
a/w n/v/D felt GE
but has HTN urgency concern if n/v related to it, CT head neg
resumed all home meds-BB, hydralazine, prozocin , bps now very low
will titrate back hydralazine to 10mg TID
clonidine patch started in ER-ok to continue will likely take time to work hopefully by kj
given that she is tachycardiac BB dose to 100mg BID
titrate hydralazine as needed, if needed add CCB but cautious with concomitant dianna sina
known bilateral renal artery stenosis hence avoiding RAASI
unlikely need vasc intervention at this time if can control with meds
previously d/w Dr White
stable renal function at 1.3 at baseline
with n/v/d-will give gentle IVF
check C diff with recent abx exposure
avoid NSAIDs and nephrotoxins
avoid drastic BP changes
-
-
Date of Service: November 11, 2023
CC / HPI / ROS
-
Chief Complaint:
Hypertension
History of Present Illness:
Blood pressure with improved control on clonidine hydralazine prazosin metoprolol
Creatinine stable at 1.3
Review of Systems:
non oliguric
no more GI symptoms
remains on nc
Labs
-
Labs:
WBC 10.9 10^3/uL (4.8-10.8) H 11/10/23 04:11
RBC 4.24 10^6/uL (4.20-5.40) 11/10/23 04:11
Hgb 13.5 g/dL (12.0-16.0) 11/10/23 04:11
Hct 41.2 % (37.0-47.0) 11/10/23 04:11
Plt Count 212 10^3/uL (130-400) 11/10/23 04:11
Sodium 136 mmol/L (135-145) 11/11/23 03:51
Potassium 4.5 mmol/L (3.5-5.1) 11/11/23 03:51
Chloride 110 mmol/L (98-107) H 11/11/23 03:51
Carbon Dioxide 24 mmol/L (22-30) 11/11/23 03:51
BUN 28 mg/dl (7-17) H 11/11/23 03:51
Creatinine 1.3 mg/dL (0.6-1.0) H 11/11/23 03:51
eGFR 45.92 11/11/23 03:51
Glucose 99 mg/dl (70-99) 11/11/23 03:51
Calcium 8.5 mg/dl (8.4-10.2) 11/11/23 03:51
Albumin 4.5 g/dl (3.5-5.0) 11/09/23 03:37
Physical Exam
-
Vital Signs:
Vital Signs
Temp Pulse Resp BP Pulse Ox
97.4 F 72 14 95/66 96
11/11/23 04:01 11/11/23 08:41 11/11/23 07:00 11/11/23 08:41 11/11/23 07:00
Cardiovascular:: Regular rate and rhythm
Respiratory:: Bilateral: CTA
Lung Excursion:: Normal
Abdomen:: Nontender and Soft
Extremity Edema:: None: Bilateral:
White Catheter: No
[2023-11-11] MEDS: MINIPRESS 1 MG PO ×2 (09:08→20:10)
--- NOTE | 2023-11-11 09:45 | W.PN.HOSP.TC ---
Today's Communication/Plan
-
Follow-up blood pressure readings with the change in antihypertensive regimen.
Assessment / Plan
Assessment / Plan
Acute� N/V non bloody watery diarrhea�
Associated leukocytosis without fever
Seems self-limiting. Resolved GI symptoms. Normalized white count without antibiotics
- Denies sick contact
-Stool culture from this admission incomplete she has no further diarrhea. DC further stool culture requested.
-She seems to think it is associated with elevated blood pressure and she has noticed this in the past.
-Tolerating diet
HTN urgency
HX Longstanding hypertension with suspected secondary component, never identified
HX ANGELICA(70% left, 50% right)
Left renal atrophy
- Patient compliant with her medication. She lives in [place] and nursing gives her medications
- Improved blood pressure today, in fact was on lower side last night. Patient currently on clonidine patch which is new for her. She is also on metoprolol and prazosin which is a chronic medication for her. She is also on hydralazine chronically
the dose of which was decreased by nephrology.
- Renal consult noted and appreciated
-Patient with longstanding hypertension with labile blood pressures with associated nonspecific symptoms ? Role of renal artery stenosis ? Evaluate for other secondary causes. Will discuss with nephrology
CKD 3
- Creatinine stable
HX chr HFpEF: clinically not in acute HF
- Daily weight and I/O
- cont. CELL MANAGER Jardiance
- She takes lasix prn
HX Paroxysmal A-fib
- cont CELL MANAGER Eliquis
Anxiety depression insomnia HX
- cont� duloxetine amitriptyline Ativan Seroquel when tolerates PO
HX migraine
-� Fioricet PRN
HX Recurrent asthma :� No acute flare
COVID flu negative
- Xopenex scheduled and as needed due to tachycardia
- cont.� home scheduled inhalers
Chronic pain, narcotic dependent
- on CELL MANAGER PO morphine 15 mg tablet,extended release 15 mg PO Q12H Pain
- IV Morphine PRN while vomiting
Prediabetes HX
Morbid obesity.
DVT prophylaxis Eliquis
Full code
Tx to tele
Anticipated Discharge: 24 - 48 hours
Subjective/Interval History
-
Date of Service: November 11, 2023
No further GI symptoms today. Tolerating solid diet.
Objective Data
-
Labs:
Laboratory Results
11/11/23
03:51
Sodium 136
Potassium 4.5
Chloride 110 H
Carbon Dioxide 24
BUN 28 H
Creatinine 1.3 H
Glucose 99
Calcium 8.5
Vital Signs:
Vital Signs
Temp Pulse Resp BP Pulse Ox
97.4 F 69 14 128/62 96
11/11/23 04:01 11/11/23 09:08 11/11/23 07:00 11/11/23 09:08 11/11/23 07:00
I&O
11/10/23 11/11/23 11/12/23
06:59 06:59 06:59
Intake Total 600 / 600 720 / 720
Output Total 400 / 400 600 / 600
Balance 200 / 200 120 / 120
Review of Systems
-
Constitutional: Denies Fever or Chills
EENT: Denies Sore Throat
Respiratory: Reports Cough (chronic); Denies Trouble Breathing
Cardiac: Denies Chest Pain
Neuro: Denies Dizzy
Physical Exam
-
General: No Apparent Distress
HEENT: Moist Mucous Membranes
Respiratory: Wheezes (occ expiratory) and Non Labored Respirations; Negative Crackles or Accessory Resp Muscle Use
Cardiac: Regular Rhythm and S1/S2
GI: Soft and Nontender
Neuro: AO x 3
Psych: Calm
--- NOTE | 2023-11-11 12:05 | PTCARENOTE ---
Report called to [facility]. Pt sent with all belongings via transport team.
[2023-11-11] MEDS: ROXICODONE 5 MG PO ×2 (12:23→22:04)
--- NOTE | 2023-11-11 12:45 | PTCARENOTE ---
Received patient as transfer from IMU into room 2125. Patient AAOx3, VSS, B/L BKA and L forearm amputation noted; patient x2 assist pullover from stretcher to bed. Purewick in place draining yellow urine. L leg dressing clean, dry, intact. Patient
oriented to room and call roberts, states no concerns at this time; PRN oxycodone given for L leg pain rated 6/10.
[2023-11-11] MEDS: APRESOLINE 10 MG PO ×2 (15:33→22:01)
[2023-11-11] MEDS: NEURONTIN 300 MG PO (15:33)
[2023-11-11] MEDS: FIORICET PO (16:02)
[2023-11-11] MEDS: ELAVIL 10 MG PO (20:09)
[2023-11-11] MEDS: NEURONTIN 600 MG PO (22:01)
[2023-11-11] MEDS: DESYREL 50 MG PO (22:01)
[2023-11-11] MEDS: FEOSOL 325 MG PO (22:01)
[2023-11-12] MEDS: FIORICET 2 TAB PO ×3 (00:39→16:35)
[2023-11-12 03:21] VITALS: BP 106/65
[2023-11-12 05:46] VITALS: BMI 28.0
[2023-11-12 06:00] VITALS: BMI 28.0
[2023-11-12 07:44] VITALS: BP 129/68
[2023-11-12] MEDS: APRESOLINE 10 MG PO ×2 (08:22→16:35)
[2023-11-12] MEDS: TOPROL XL 100 MG PO ×2 (08:22→20:18)
[2023-11-12] MEDS: MINIPRESS 1 MG PO ×2 (08:22→20:17)
[2023-11-12] MEDS: JARDIANCE 10 MG PO (08:22)
[2023-11-12] MEDS: PROTONIX 40 MG PO (08:22)
[2023-11-12] MEDS: CYMBALTA DELAYED RELEASE 60 MG PO (08:22)
[2023-11-12] MEDS: PEPCID 20 MG PO (08:22)
[2023-11-12] MEDS: CRESTOR 20 MG PO (08:23)
[2023-11-12] MEDS: NEURONTIN 100 MG PO (08:23)
[2023-11-12] MEDS: MS CONTIN (EXTENDED RELEASE) 15 MG PO ×2 (08:23→20:18)
[2023-11-12] MEDS: CLARITIN 10 MG PO (08:23)
[2023-11-12] MEDS: ATIVAN 0.5 MG PO ×2 (08:23→20:17)
[2023-11-12] MEDS: ELIQUIS 5 MG PO ×2 (08:23→20:17)
[2023-11-12] MEDS: ROXICODONE 5 MG PO ×2 (08:23→20:20)
[2023-11-12 11:06] VITALS: BP 140/68
[2023-11-12 11:15] VITALS: BMI 28.0
--- NOTE | 2023-11-12 12:59 | W.PN.NEPH.PH ---
Today's Communication / Plan
-
see plan
Assessment/Plan
-
IMP;
Acute� N/V non bloody watery diarrhea� DDX:� Infective - virus vs bacterial
Leucocytosis, AFEBRILE
HTN urgency
CKD 3a at baseline (1.1-1.2 mg/DL)-follows DR Daniels
Left renal atrophy
ANGELICA (70% left, 50% right)
Generalized atherosclerosis and PAD
Septic shock with MOSF with transient HD needs, PEA, bilateral lower extremity BKA, left hand/forearm amputation 2015
Bilateral adrenal hyperplasia
History elevated norepinephrine and dopamine levels
Paroxysmal atrial fibrillation on Eliquis
Chronic pain, narcotic dependent
History CVA
History of urosepsis 2015
Heart failure with preserved EF-not on diuretics
Longstanding hypertension with suspected secondary component, never identified
Anxiety depression insomnia HX
HX migraine
HX Recurrent asthma
Chronic pain, narcotic dependent
Prediabetes HX
obesity
PLan:
a/w n/v/D felt GE
but has HTN urgency concern if n/v related to it, CT head neg
BP are significantly improved with addition of clonidine and increasing BB
weaned down hydralzine 10 BID if needed change to prn
cont same meds for now including Prazosin
known bilateral renal artery stenosis hence avoiding RAASI
unlikely need vasc intervention at this time if can control with meds
previously d/w Dr White
stable renal function at 1.3 at baseline
avoid NSAIDs and nephrotoxins
d/c plan
-
-
Date of Service: November 12, 2023
CC / HPI / ROS
-
Chief Complaint:
Hypertension
History of Present Illness:
Blood pressure with improved control on clonidine hydralazine prazosin metoprolol
Creatinine stable at 1.3 on 11/10
no fever
Review of Systems:
non oliguric
no more GI symptoms
feels much better now
Labs
-
Labs:
WBC 10.9 10^3/uL (4.8-10.8) H 11/10/23 04:11
RBC 4.24 10^6/uL (4.20-5.40) 11/10/23 04:11
Hgb 13.5 g/dL (12.0-16.0) 11/10/23 04:11
Hct 41.2 % (37.0-47.0) 11/10/23 04:11
Plt Count 212 10^3/uL (130-400) 11/10/23 04:11
Sodium 136 mmol/L (135-145) 11/11/23 03:51
Potassium 4.5 mmol/L (3.5-5.1) 11/11/23 03:51
Chloride 110 mmol/L (98-107) H 11/11/23 03:51
Carbon Dioxide 24 mmol/L (22-30) 11/11/23 03:51
BUN 28 mg/dl (7-17) H 11/11/23 03:51
Creatinine 1.3 mg/dL (0.6-1.0) H 11/11/23 03:51
eGFR 45.92 11/11/23 03:51
Glucose 99 mg/dl (70-99) 11/11/23 03:51
Calcium 8.5 mg/dl (8.4-10.2) 11/11/23 03:51
Albumin 4.5 g/dl (3.5-5.0) 11/09/23 03:37
Physical Exam
-
Vital Signs:
Vital Signs
Temp Pulse Resp BP Pulse Ox
98.9 F 64 17 140/68 96
11/12/23 11:06 11/12/23 11:06 11/12/23 11:06 11/12/23 11:06 11/12/23 11:06
Cardiovascular:: Regular rate and rhythm
Respiratory:: Bilateral: CTA
Lung Excursion:: Normal
Abdomen:: Nontender and Soft
White Catheter: No
Other Findings::
right BKA and left AKA stump
--- NOTE | 2023-11-12 14:38 | W.PN.HOSP.TC ---
Today's Communication/Plan
-
DC
Assessment / Plan
Assessment / Plan
Acute� N/V non bloody watery diarrhea�
Associated leukocytosis without fever
Seems self-limiting. Resolved GI symptoms. Normalized white count without antibiotics
-Denies sick contact
-Stool culture from this admission incomplete she has no further diarrhea. DC further stool culture requested.
-She seems to think it is associated with elevated blood pressure and she has noticed this in the past. Based on the presentation cannot rule out gastroenteritis.
-Tolerating diet
HTN urgency
HX Longstanding hypertension with suspected secondary component, never identified
HX ANGELICA(70% left, 50% right)
Left renal atrophy
- Patient compliant with her medication. She lives in [facility] and nursing gives her medications
- Improved blood pressure Patient currently on clonidine patch which is new for her. She is also on metoprolol and prazosin which is a chronic medication for her. She is also on hydralazine chronically the dose of which was decreased by
nephrology.
- Renal consult noted and appreciated-recommend continued medical treatment.
CKD 3
- Creatinine stable
HX chr HFpEF: clinically not in acute HF
- Daily weight and I/O
- cont. INTERNET RETAILER Jardiance
- She takes lasix prn
HX Paroxysmal A-fib
- cont INTERNET RETAILER Eliquis
Anxiety depression insomnia HX
- cont� duloxetine amitriptyline Ativan Seroquel when tolerates PO
HX migraine
-� Fioricet PRN
HX Recurrent asthma :� No acute flare
COVID flu negative
- Xopenex scheduled and as needed due to tachycardia
- cont.� home scheduled inhalers
Chronic pain, narcotic dependent
- on INTERNET RETAILER PO morphine 15 mg tablet,extended release 15 mg PO Q12H Pain
- IV Morphine PRN while vomiting
Prediabetes HX
Medically stable for dc
Anticipated Discharge: Today
Subjective/Interval History
-
Date of Service: November 12, 2023
Patient feeling great without any GI symptoms. Tolerating diet.
Objective Data
-
Vital Signs:
Vital Signs
Temp Pulse Resp BP Pulse Ox
98.9 F 64 17 140/68 96
11/12/23 11:06 11/12/23 11:06 11/12/23 11:06 11/12/23 11:06 11/12/23 11:06
I&O
11/11/23 11/12/23 11/13/23
06:59 06:59 06:59
Intake Total 600 / 600 1640 / 1640
Output Total 400 / 400 1675 / 1675
Balance 200 / 200 -35 / -35
Review of Systems
-
Respiratory: Denies Trouble Breathing
Cardiac: Denies Chest Pain or Palpitations
Neuro: Denies Dizzy
Physical Exam
-
General: No Apparent Distress
HEENT: Moist Mucous Membranes
Respiratory: Clear to Auscultation
Cardiac: Regular Rhythm and S1/S2
GI: Soft
Neuro: AO x 3
--- NOTE | 2023-11-12 14:49 | W.DS.TRANS ---
DC Summary - Child Psychiatrist
-
Discharge Instructions:
Discharge Diagnosis/Procedures Possible gastroenteritis; hypertensive urgency
Diet 2 Gram Sodium
Activity As tolerated
Driving Restrictions No driving
Bathing Restrictions None
Instructions:
Stand-Alone Forms:
Changes to Home Medications: Yes
Discharge Medications:
DC Medications w/original date entered in [facility]
albuterol sulfate 90 mcg/actuation aerosol inhaler 1 puff inhalation R Q4HPRN PRN sob 06/29/22
amitriptyline 10 mg tablet 10 mg PO DAILY@2000 Mental Health/Anxiety 06/29/22
docusate sodium 100 mg capsule 200 mg PO DAILY stool softener 06/29/22
duloxetine 60 mg capsule,delayed release 60 mg PO DAILY@0900 Mental Health/Anxiety 06/29/22
ferrous sulfate 325 mg (65 mg iron) tablet 325 mg PO HS Supplement 06/29/22
gabapentin 100 mg capsule 100 mg PO DAILY Pain 06/29/22
gabapentin 300 mg capsule 300 mg PO DAILY@1600 Pain 06/29/22
lactulose 10 gram/15 mL oral solution 30 ml PO HSPRN PRN constipation 06/29/22
lorazepam 0.5 mg tablet 0.5 mg PO BID Mental Health/Anxiety 06/29/22
morphine 15 mg tablet,extended release 15 mg PO Q12H Pain 06/29/22
pantoprazole 40 mg tablet,delayed release 40 mg PO DAILY Gastrointestinal Issue 06/29/22
sennosides 8.6 mg tablet 17.2 mg PO HSPRN PRN constipation 06/29/22
trazodone 50 mg tablet 50 mg PO HS sleep 06/29/22
betamethasone dipropionate 0.05 % topical cream 1 applic topical BIDPRN PRN external inferior edema 09/29/22
ergocalciferol (vitamin D2) 1,250 mcg (50,000 unit) capsule 1,250 mcg PO FR@0800 Supplement 10/13/22
nitroglycerin 0.4 mg sublingual tablet 0.4 mg sublingual [id number] PRN acute angina 10/13/22
oxycodone 5 mg tablet 5 mg PO Q6HPRN PRN severe pain 11/22/22
fluticasone 232 mcg-salmeterol 14 mcg/actuation breath activated powdr 1 inh inhalation R BID Lung/Breathing Issues 03/28/23
fghtxynyzq-vgtinfxkuuxnj-mgaijnxk 50 mg-300 mg-40 mg capsule 2 cap PO BID@0900,1700 headaches 07/04/23
fzavmdxfsx-thvngoephmcsc-ycwxkmki 50 mg-325 mg-40 mg tablet 2 tab PO BIDPRN PRN headaches 07/04/23
cyanocobalamin (vitamin B-12) 500 mcg tablet 1,000 mcg PO DAILY Supplement 07/04/23
prazosin 1 mg capsule 1 mg PO BID Blood Pressure 07/04/23
apixaban 5 mg tablet (Eliquis) 5 mg PO BID Blood Clot Prevention/Tx 11/09/23
atogepant 30 mg tablet (Qulipta) 30 mg PO DAILY migraine 11/09/23
empagliflozin 10 mg tablet (Jardiance) 10 mg PO DAILY Diabetes 11/09/23
famotidine 20 mg tablet 20 mg PO DAILY Gastrointestinal Issue 11/09/23
gabapentin 600 mg tablet 600 mg PO HS Pain 11/09/23
guaifenesin 1,200 mg tablet, extended release 12 hr (Mucinex) 1,200 mg PO [id number] PRN cough 11/09/23
ipratropium 0.5 mg-albuterol 3 mg (2.5 mg base)/3 mL nebulization soln 3 ml inhalation R Q4HPRN PRN SOB, cough 11/09/23
loratadine 10 mg tablet 10 mg PO DAILY Allergies 11/09/23
ondansetron 4 mg disintegrating tablet 4 mg PO Q4HPRN PRN nausea/vomiting 11/09/23
polyethylene glycol 3350 17 gram oral powder packet 17 g PO DAILY Constipation 11/09/23
rosuvastatin 20 mg tablet 20 mg PO DAILY High Cholesterol 11/09/23
clonidine 0.1 mg/24 hr weekly transdermal patch 0.1 mg transdermal Q7D #4 ea 11/12/23
hydralazine 10 mg tablet 10 mg PO TID #90 tabs 11/12/23
metoprolol succinate 100 mg tablet,extended release 24 hr 100 mg PO BID #60 tabs 11/12/23
Home Medication Changes
New medication-plan
Change medication-decreased dose of hydralazine and increased dose of metoprolol
Pending Results: No
[2023-11-12 15:09] VITALS: BP 139/50
--- NOTE | 2023-11-12 15:29 | CM ---
Addendum entered by Acacia Osborn 11/13/23 09:29:
Transport schedules for 9:00AM. Sonali at [facility] notified.
Addendum entered by Acacia Osborn 11/12/23 16:11:
Transport to [facility] is not available until 10:00PM this evening. Called [facility] and they are unable to accept that late. Will set up transport for
11/13/23 in am. Patient and daughter and team aware.
Original Note:
Patient has been medically cleared for discharge back to [facility] with no additional skilled needs. Transport to be scheduled. [facility] RN, Patient and daughter notified.
NURSE TO NURSE REPORT # [phone] Ask for [facility]ham (nurse)
FAX # [phone]
[2023-11-12] MEDS: NEURONTIN 300 MG PO (16:35)
[2023-11-12 19:49] VITALS: BP 145/62
[2023-11-12] MEDS: ELAVIL 10 MG PO (20:17)
[2023-11-12] MEDS: DESYREL 50 MG PO (22:21)
[2023-11-12] MEDS: NEURONTIN 600 MG PO (22:21)
[2023-11-12] MEDS: FEOSOL 325 MG PO (22:21)
--- NOTE | 2023-11-12 22:50 | W.PN.UPDATE ---
Update Note
Progress Note Update
Hydralazine 10mg dose changed from TID to BID as recommended by nephrology.
[2023-11-12] MEDS: APRESOLINE PO ×2 (22:55)
[2023-11-12 23:04] VITALS: BP 114/59
[2023-11-13] MEDS: FIORICET 2 TAB PO ×2 (01:10→07:41)
[2023-11-13 03:57] VITALS: BP 119/64
[2023-11-13] MEDS: ROXICODONE 5 MG PO (04:42)
[2023-11-13 05:20] VITALS: BMI 28.0
[2023-11-13 07:24] VITALS: BP 153/66
[2023-11-13] MEDS: TOPROL XL 100 MG PO (07:39)
[2023-11-13] MEDS: ATIVAN 0.5 MG PO (07:40)
[2023-11-13] MEDS: CYMBALTA DELAYED RELEASE 60 MG PO (07:40)
[2023-11-13] MEDS: PROTONIX 40 MG PO (07:40)
[2023-11-13] MEDS: MINIPRESS 1 MG PO (07:40)
[2023-11-13] MEDS: CRESTOR 20 MG PO (07:40)
[2023-11-13] MEDS: CLARITIN 10 MG PO (07:40)
[2023-11-13] MEDS: JARDIANCE 10 MG PO (07:40)
[2023-11-13] MEDS: ELIQUIS 5 MG PO (07:40)
[2023-11-13] MEDS: NEURONTIN 100 MG PO (07:40)
[2023-11-13] MEDS: PEPCID 20 MG PO (07:41)
[2023-11-13] MEDS: MS CONTIN (EXTENDED RELEASE) 15 MG PO (07:41)
[2023-11-13] MEDS: APRESOLINE 10 MG PO (07:41)
--- NOTE | 2023-11-13 16:55 | W.DCSUMMARY ---
Discharge Summary
Discharge Data
Date of Admission: 11/09/23
Date of Discharge: 11/12/23
-
Pending Results: No
Hospital Course
Primary diagnosis:
Self-limiting nausea vomiting and diarrhea possible gastroenteritis
Hypertensive urgency
Secondary diagnosis:
Longstanding hypertension
History of renal artery stenosis [70% on left, 50% on right]
Left renal atrophy
Chronic kidney disease stage III
Heart failure with preserved EF
Paroxysmal atrial fibrillation
Migraine headaches
Asthma
Hospital course:
Patient presented with symptoms of nausea vomiting and diarrhea which were all self-limiting. Couldnt get a specimen of the stool to check for cultures as her illness was self limiting. Along with that she had hypertensive urgency situation.
Unclear if both are related but her GI symptoms resolved pretty quickly raising concern of possible gastroenteritis.
She does have longstanding hypertension and on multidrug regimen. Was seen by paving bed maker who initiated clonidine which did the trick this time. The clonidine patch stabilized her blood pressure better. Her beta-sina dose was increased and
hydralazine dose was decreased. She was maintained on prazosin. She sees Dr. Daniels, paving bed maker as an outpatient for blood pressure management.BP was stable with above med changes.
Consultants on board:
Nephrology-Dr. Daniels
Discharge Plan
-
Patient Disposition: Assisted Living
Discharge Diagnosis/Procedures: Possible gastroenteritis; hypertensive urgency
Condition: Good
Diet: 2 Gram Sodium
Activity: As tolerated
Driving Restrictions: No driving
Bathing Restrictions: None
Activity Restrictions/Additional Instructions:
Wound Care Instructions
L BKA: clean with soap and water, dry dressing, change daily and prn drainage.
Follow up at wound care center if wound does not heal, call for an appointment.
Referrals:
Abbie Bartholomew, DO [Family Provider] - in less than 1 week
Prescriptions:
New
hydralazine 10 mg Tablet
10 mg PO TID Qty: 90 0RF
clonidine 0.1 mg/24 hr Patch Weekly
0.1 mg transdermal Q7D Qty: 4 0RF
metoprolol succinate 100 mg Tablet Extended Release 24 Hr
100 mg PO BID Qty: 60 0RF
Continued
sennosides 8.6 mg Tablet
17.2 mg PO HSPRN PRN (Reason: constipation)
trazodone 50 mg Tablet
50 mg PO HS
lorazepam 0.5 mg Tablet
0.5 mg PO BID
amitriptyline 10 mg Tablet
10 mg PO DAILY@2000
pantoprazole 40 mg Tablet,Delayed Release (Dr/Ec)
40 mg PO DAILY
ferrous sulfate 325 mg (65 mg iron) Tablet
325 mg PO HS
gabapentin 300 mg Capsule
300 mg PO DAILY@1600
morphine 15 mg Tablet Extended Release
15 mg PO Q12H
albuterol sulfate 90 mcg/actuation Hfa Aerosol Inhaler
1 puff INHALATION R Q4HPRN PRN (Reason: sob)
duloxetine 60 mg Capsule,Delayed Release(Dr/Ec)
60 mg PO DAILY@0900
docusate sodium 100 mg Capsule
200 mg PO DAILY
gabapentin 100 mg Capsule
100 mg PO DAILY
lactulose 10 gram/15 mL Solution
30 ml PO HSPRN PRN (Reason: constipation)
betamethasone dipropionate 0.05 % cream
1 applic topical BIDPRN PRN (Reason: external inferior edema)
nitroglycerin 0.4 mg Tablet, Sublingual
0.4 mg SUBLINGUAL [id number] PRN (Reason: acute angina)
ergocalciferol (vitamin D2) 1,250 mcg (50,000 unit) Capsule
1,250 mcg PO FR@0800
oxycodone 5 mg Tablet
5 mg PO Q6HPRN PRN (Reason: severe pain)
fluticasone propion-salmeterol 232-14 mcg/actuation Aerosol Powdr Breath Activated
1 inh INHALATION R BID
vxdrxdyrtj-rtqdpbspscjlq-amjs 50-325-40 mg Tablet
2 tab PO BIDPRN PRN (Reason: headaches)
cyanocobalamin (vitamin B-12) 500 mcg Tablet
1,000 mcg PO DAILY
tsgtgvujin-njihbfwzhavaz-rxxy 50-300-40 mg Capsule
2 cap PO BID@0900,1700
prazosin 1 mg capsule
1 mg PO BID
ipratropium-albuterol 0.5 mg-3 mg(2.5 mg base)/3 mL Solution For Nebulization
3 ml INHALATION R Q4HPRN PRN (Reason: SOB, cough)
famotidine 20 mg Tablet
20 mg PO DAILY
ondansetron 4 mg Tablet,Disintegrating
4 mg PO Q4HPRN PRN (Reason: nausea/vomiting)
loratadine 10 mg Tablet
10 mg PO DAILY
guaifenesin [Mucinex] 1,200 mg Tablet Extended Release 12hr
1,200 mg PO [id number] PRN (Reason: cough)
Eliquis 5 mg Tablet
5 mg PO BID
Jardiance 10 mg Tablet
10 mg PO DAILY
Qulipta 30 mg Tablet
30 mg PO DAILY
gabapentin 600 mg Tablet
600 mg PO HS
polyethylene glycol 3350 17 gram Powder In Packet
17 g PO DAILY
rosuvastatin 20 mg Tablet
20 mg PO DAILY
Discontinued
hydralazine 10 mg Tablet
20 mg PO BID@0700,1500
hydralazine 10 mg Tablet
30 mg PO DAILY@2300
metoprolol succinate 50 mg Tablet Extended Release 24 Hr
50 mg PO BID
Discharge Orders:
Discharge Patient (As Directed); Ordered 11/12/23
Ordered By: Ken Tang
Discharge Date and Time
Discharge Date/Time: 11/13/23 09:30
== END 2023-11-13 09:30 | disposition home or self-care (01) | DRG 305 ==
LOC: 2 NORTH 06:38
PROVIDERS: ADMITTING PHYSICIAN Internal Medicine; ATTENDING PHYSICIAN Internal Medicine; CONSULT PHYSICIAN Internal Medicine; EMERGENCY PHYSICIAN Student in an Organized Health Care Education/Training Program; FAMILY PHYSICIAN Hospitalist
DX: I16.0 Hypertensive urgency (principal); I50.32 Chronic diastolic (congestive) heart failure; F11.20 Opioid dependence, uncomplicated; I13.0 Hypertensive heart and chronic kidney disease with heart failure and stage 1 through stage 4 chronic kidney disease, or unspecified chronic kidney disease; I48.0 Paroxysmal atrial fibrillation; N26.1 Atrophy of kidney (terminal); N18.31 Chronic kidney disease, stage 3a; K52.9 Noninfective gastroenteritis and colitis, unspecified; F51.05 Insomnia due to other mental disorder; F32.A Depression, unspecified; G89.29 Other chronic pain; R73.03 Prediabetes
CPT/HCPCS: 70450; 71046; 80048; 80053; 84484; 85025; 85027; 85652; 87070; 87502; 87811; 92610; 93005; 96374; 96375; 99285

== ENCOUNTER 2023-11-21 01:01 | Emergency (ER) | payer OTHER, SELFPAY ==
[2023-11-21] VITALS (9 sets, daily range): BP systolic 97–201; BP diastolic 51–88
--- NOTE | 2023-11-21 01:04 | ED.GENMED ---
History of Present Illness
General
Chief Complaint: Blood Pressure Problem
Time Seen by Provider: 11/21/23 01:04
History of Present Illness
History of Present Illness:
HPI: Patient came in by ambulance from [place]. She states she has a general unwell feeling and was concerned because of high blood pressure readings. She had nausea all day long currently has no nausea after she took Zofran. Currently after she
took her evening hydralazine, she vomited. She also feels very anxious. She denies any significant pain.
EXAM:
GENERAL: Well appearing in no distress
HEENT: Moist oral mucosa
CARDIOVASCULAR: No murmurs, normal heart rate, regular rhythm, No chest wall tenderness
PULMONARY: No respiratory distress, breath sounds are clear and equal
ABDOMEN: Soft with no peritoneal signs, no tenderness
NEUROLOGIC: Good strength all extremities, no coordination deficits
PSYCHIATRIC: Appropriate mental status, normal insight and judgement
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
SKIN: No rash, no lesions
TIME OF INITIAL ENCOUNTER: 1:15 AM
NUMBER AND COMPLEXITY OF PROBLEMS ADDRESSED AT THE ENCOUNTER
� Chronic conditions affecting care: Renal artery stenosis, migraines, asthma, A-fib, septic shock related to infected ureteral stone, has had cardiac arrest, CKD, bipolar, depression
� Acute Exacerbation and/or Progression of Chronic Illness: This is an acute problem
� Differential Diagnosis includes: Exacerbation of anxiety, hypertensive urgency, JN,
AMOUNT AND/OR COMPLEXITY OF DATA TO BE REVIEWED AND ANALYZED
� I performed an independent evaluation of and my interpretation is:
EKG: Sinus 78, left axis deviation, LAE suggested by V2 criteria, no significant change from 11/09/2023
CT:
X-rays:
Laboratory Studies: White count slightly high at 11.5, hemoglobin normal
Other:
� Review of other/old records: Reviewed records. The patient was seen here just over a week ago with nausea, vomiting, and diarrhea. Last admission she was hypertensive and nephrology added clonidine.
� Clinical information was obtained by an independent historian: I reviewed the facesheet from [place]
� Prescriptions/Medications Considered but not given:
� Further testing considered but not performed:
RISK OF COMPLICATIONS AND/OR MORBIDITY OR MORTALITY OF PATIENT MANAGEMENT
� Social determinants of health affecting care: Resides at [place]
� Discussion with other providers:
� Escalation of care including admission/observation vs risk of discharge considered: The patient is extremely concerned about her high blood pressure readings and initially had systolic of 187 upon arrival. I did order
hydralazine. She also describes a general unwell feeling including anxiety. I also ordered Ativan. She does not feel that her blood pressure is due to anxiety. States that she is compliant with her clonidine patch. I reassessed patient at 2:30
AM, she feels significantly improved. She feels comfortable with going back to [place] as long as renal function is near baseline.
Past History
Past History
ED Past Medical History: Arrthythmia, Asthma, CHF, HTN, Hypercholesterolemia, SD, Valvular disease, Psychiatric, Other and Other
ED Past Surgical History: Gynecological, Orthopedic and Other
Patient has exhibited threatening behavior?: No
PSI?: No
Social History
Tobacco: Non-smoker
Alcohol: Former
Drug: None
Personal:
Living: [facility]
Employment: Not employed
Family History
Family History: Other (Father had heart disease, mother had abdominal aortic aneurysm and also had depression. Paternal grandmother had depression)
Phy Exam
Physical Exam
Physical Exam:
See HPI
Course
Orders/Labs/Results
Orders:
Orders
11/21/23 01:05
EKG [Electrocardiogram (*1)] Urgent
Reason for Study: Hypertension, Benign
EKG- Treatment ONCE
11/21/23 01:14
HydrALAZINE [Apresoline] 10 mg IV NOW STA
Lorazepam [Ativan] 1 mg IV NOW STA
11/21/23 01:15
0.9% Sodium Chloride 500 ml [Nss] 500 ml IV BOLUS
11/21/23 02:12
Complete Blood Count/With Diff Urgent
11/21/23 02:42
Basic Metabolic Panel Urgent
Abnormal Lab Results
11/21/23 11/21/23
02:12 02:42
WBC 11.5 H 10^3/uL
(4.8-10.8)
RBC 4.14 L 10^6/uL
(4.20-5.40)
MCH 32.9 H pg
(27.0-31.0)
MPV 11.0 H fL
(7.4-10.4)
Abs Immat Gran (auto) 0.1 H 10^3/uL
(0-0.05)
Absolute Neuts (auto) 8.9 H 10^3/uL
(1.4-6.5)
Neutrophils % 78.0 H %
(42.2-75.2)
Lymphocytes % 15.0 L %
(20.5-51.1)
Chloride 109 H mmol/L
(98-107)
BUN 21 H mg/dl
(7-17)
Glucose 128 H mg/dl
(70-99)
11/21/23 02:12
11/21/23 02:42
Vital Signs
Initial and Last Documented VS:
Initial Vital Signs
Pulse Resp BP
76 19 187/88
11/21/23 01:05 11/21/23 01:05 11/21/23 01:05
Last Documented Vital Signs
Temp Pulse Resp BP Pulse Ox
97.7 F 87 20 127/57 92
11/21/23 02:32 11/21/23 03:00 11/21/23 03:00 11/21/23 03:00 11/21/23 02:32
*Critical Care Note
Total Time (30-74mins, 75-104mins- exclusive of procedures): Not Applicable
ED Attending Note
-
Portions of this chart may have been created with voice recognition software.� Occasional wrong word or��sound alike� substitutions may have occurred due to the inherent limitations of voice recognition software.
Discharge Plan
Departure
Patient Disposition: Home (Routine Discharge)
Date of Disposition: 11/21/23
Time of Disposition: 03:16
Patient with high blood pressure during this ER visit?: Yes
Discharge Problem:
High blood pressure
Instructions: BLOOD PRESSURE
Prescriptions:
No Action
sennosides 8.6 mg Tablet
17.2 mg PO HSPRN PRN (Reason: constipation)
trazodone 50 mg Tablet
50 mg PO HS
lorazepam 0.5 mg Tablet
0.5 mg PO BID
amitriptyline 10 mg Tablet
10 mg PO DAILY@2000
pantoprazole 40 mg Tablet,Delayed Release (Dr/Ec)
40 mg PO DAILY
ferrous sulfate 325 mg (65 mg iron) Tablet
325 mg PO HS
gabapentin 300 mg Capsule
300 mg PO DAILY@1600
morphine 15 mg Tablet Extended Release
15 mg PO Q12H
albuterol sulfate 90 mcg/actuation Hfa Aerosol Inhaler
1 puff INHALATION R Q4HPRN PRN (Reason: sob)
duloxetine 60 mg Capsule,Delayed Release(Dr/Ec)
60 mg PO DAILY@0900
docusate sodium 100 mg Capsule
200 mg PO DAILY
gabapentin 100 mg Capsule
100 mg PO DAILY
lactulose 10 gram/15 mL Solution
30 ml PO HSPRN PRN (Reason: constipation)
betamethasone dipropionate 0.05 % cream
1 applic topical BIDPRN PRN (Reason: external inferior edema)
nitroglycerin 0.4 mg Tablet, Sublingual
0.4 mg SUBLINGUAL [id number] PRN (Reason: acute angina)
ergocalciferol (vitamin D2) 1,250 mcg (50,000 unit) Capsule
1,250 mcg PO FR@0800
oxycodone 5 mg Tablet
5 mg PO Q6HPRN PRN (Reason: severe pain)
fluticasone propion-salmeterol 232-14 mcg/actuation Aerosol Powdr Breath Activated
1 inh INHALATION R BID
ubonjxotit-qfxkowicvzlyf-gznj 50-325-40 mg Tablet
2 tab PO BIDPRN PRN (Reason: headaches)
cyanocobalamin (vitamin B-12) 500 mcg Tablet
1,000 mcg PO DAILY
pvvaebmtxg-wpsiauiissach-layt 50-300-40 mg Capsule
2 cap PO BID@0900,1700
prazosin 1 mg capsule
1 mg PO BID
ipratropium-albuterol 0.5 mg-3 mg(2.5 mg base)/3 mL Solution For Nebulization
3 ml INHALATION R Q4HPRN PRN (Reason: SOB, cough)
famotidine 20 mg Tablet
20 mg PO DAILY
ondansetron 4 mg Tablet,Disintegrating
4 mg PO Q4HPRN PRN (Reason: nausea/vomiting)
loratadine 10 mg Tablet
10 mg PO DAILY
guaifenesin [Mucinex] 1,200 mg Tablet Extended Release 12hr
1,200 mg PO [id number] PRN (Reason: cough)
Eliquis 5 mg Tablet
5 mg PO BID
Jardiance 10 mg Tablet
10 mg PO DAILY
Qulipta 30 mg Tablet
30 mg PO DAILY
gabapentin 600 mg Tablet
600 mg PO HS
polyethylene glycol 3350 17 gram Powder In Packet
17 g PO DAILY
rosuvastatin 20 mg Tablet
20 mg PO DAILY
hydralazine 10 mg Tablet
10 mg PO TID Qty: 90 0RF
clonidine 0.1 mg/24 hr Patch Weekly
0.1 mg transdermal Q7D Qty: 4 0RF
metoprolol succinate 100 mg Tablet Extended Release 24 Hr
100 mg PO BID Qty: 60 0RF
Referrals:
Mahesh Amanda MD [Family Provider] -
Activity Restrictions/Additional Instructions:
We gave an IV dose of 10 mg hydralazine x 1. This improved systolic blood pressure from the 180s to the 150s. Kidney function is improved compared to prior currently with a creatinine of 0.9. Follow-up with your doctors. Return here if worse.
Interventions
Interventions:
*Risk Screen - Suicide Last Done: 11/21/23 01:06
*General Assessment Last Done: 11/21/23 01:06
*Neglect/Abuse Screening Last Done: 11/21/23 01:06
ED- Fall Risk Assessment Last Done: 11/21/23 01:10
*ED COVID-19 Vaccine History Last Done: 11/21/23 01:10
ED- Cardiac Assessment Last Done: 11/21/23 01:08
ED- Neurological Assessment Last Done: 11/21/23 01:08
ED- Pulmonary Assessment Last Done: 11/21/23 01:08
Discharge Date and Time
Print Language: BENGALI
[2023-11-21] MEDS: ATIVAN 1 MG IV (02:06)
[2023-11-21] MEDS: NSS 500 IV (02:07)
[2023-11-21] MEDS: APRESOLINE 10 MG IV (02:08)
[2023-11-21 02:19] LABS: % Basophils 0.3 % (0-2); % Eosinophils 0.8 % (0-6); % Immature Granulocytes 0.4 % (0-0.5); % Monocytes 5.5 % (1.7-9.3); Absolute Eosinophils 0.1 10^3/uL (0-0.7); Absolute Immature Granulocytes 0.1 10^3/uL (0-0.05); Absolute Lymphocytes 1.7 10^3/uL (1.2-3.4); Absolute Monocytes 0.6 10^3/uL (0.1-0.6); Absolute Neutrophils 8.9 10^3/uL (1.4-6.5); Hematocrit 39.5 % (37.0-47.0); Hemoglobin 13.6 g/dL (12.0-16.0); Mean Corp Hgb Conc. 34.4 g/dL (33.0-37.0); Mean Corpuscular Hgb 32.9 pg (27.0-31.0); Mean Corpuscular Volume 95.4 fL (81.0-99.0); Nucleated Red Blood Cells % 0 %; Platelet Count 171 10^3/uL (130-400); Red Blood Cell Count 4.14 10^6/uL (4.20-5.40); Red Cell Dist. Width 12.1 % (11.5-14.5); White Blood Cell Count 11.5 10^3/uL (4.8-10.8)
[2023-11-21 03:14] LABS: Blood Urea Nitrogen 21 mg/dl (7-17); Calcium 9.1 mg/dl (8.4-10.2); Carbon Dioxide 24 mmol/L (22-30); Chloride 109 mmol/L (98-107); Glucose 128 mg/dl (70-99); Potassium 4.1 mmol/L (3.5-5.1); Sodium 139 mmol/L (135-145); eGFR > 60.00
== END 2023-11-21 06:44 | disposition home or self-care (01) ==
LOC: EMR 01:01
PROVIDERS: EMERGENCY PHYSICIAN Emergency Medicine; FAMILY PHYSICIAN Family Medicine
DX: I10 Essential (primary) hypertension (principal)
CPT/HCPCS: 99284; 96374; 96375; 80048; 85025; 93005

== ENCOUNTER → 2023-12-10 09:52 | Outpatient (REF) | payer OTHER, SELFPAY ==
[2023-12-11 23:43] LABS: Aldosterone, Serum 5.4 ng/dL
[2023-12-12 07:44] LABS: Renin Activity Results 0.2 ng/mL/hr
== END ==
LOC: OLABSOL 09:52
PROVIDERS: ATTENDING PHYSICIAN Internal Medicine
DX: I10 Essential (primary) hypertension (principal)
CPT/HCPCS: 36415; 82088; 82384; 84244

== ENCOUNTER → 2023-12-12 10:44 | Outpatient (REF) | payer OTHER, SELFPAY ==
[2023-12-12 13:22] LABS: Albumin 4.2 g/dl (3.5-5.0); Blood Urea Nitrogen 24 mg/dl (7-17); Calcium 9.2 mg/dl (8.4-10.2); Carbon Dioxide 23 mmol/L (22-30); Chloride 109 mmol/L (98-107); Glucose 97 mg/dl (70-99); Phosphorus 4.2 mg/dl (2.5-4.5); Potassium 4.9 mmol/L (3.5-5.1); Sodium 138 mmol/L (135-145); eGFR 56.11
== END ==
LOC: OLABSOL 10:44
PROVIDERS: ATTENDING PHYSICIAN Internal Medicine
DX: I10 Essential (primary) hypertension (principal); N17.9 Acute kidney failure, unspecified; E87.1 Hypo-osmolality and hyponatremia
CPT/HCPCS: 36415; 80069; 83835

== ENCOUNTER → 2024-01-23 10:32 | Outpatient (REF) | payer OTHER, SELFPAY ==
[2024-01-23 12:02] LABS: Albumin 3.4 g/dl (3.5-5.0); Blood Urea Nitrogen 35 mg/dl (7-17); Calcium 8.8 mg/dl (8.4-10.2); Carbon Dioxide 27 mmol/L (22-30); Chloride 103 mmol/L (98-107); Glucose 99 mg/dl (70-99); Phosphorus 5.2 mg/dl (2.5-4.5); Potassium 4.3 mmol/L (3.5-5.1); Sodium 137 mmol/L (135-145); eGFR 35.79
== END ==
LOC: OLABSOL 10:32
PROVIDERS: ATTENDING PHYSICIAN Internal Medicine
DX: N18.31 Chronic kidney disease, stage 3a (principal)
CPT/HCPCS: 36415; 80069

== ENCOUNTER 2024-06-07 06:18 | Emergency (ER) | payer OTHER, SELFPAY ==
[2024-06-07 06:19] VITALS: BP 167/99
[2024-06-07 06:23] VITALS: BP 167/99
--- NOTE | 2024-06-07 06:40 | ED.GENMED ---
History of Present Illness
<Joe Gray MD, Resident - Last Filed: 06/07/24 15:14>
General
Chief Complaint: Abdominal Symptoms
Source: patient and records
Time Seen by Provider: 06/07/24 06:40
Travel History
Have you traveled to any high risk areas for coronavirus over the past 14 days?: No
Have you had any contact with someone who has COVID-19?: No
Do you have any symptoms of coronavirus? Fever > 100 degrees, chills, cough, shortness of breath, sore throat, loss of taste or smell, muscle aches, or headache?: No
History of Present Illness
History of Present Illness:
Sherin Travis, 63-year-old female with BL LE and L UE amputation following urosepsis and chronic renal disease stage IIIa, has had diffuse (more prominently upper) abdominal pain, generalized weakness and fatigue for the past 2 weeks. Has had nausea
and diarrhea since the past 2 days. Also notes intermittent chills and night sweats. Denies noticing blood in stool, chest pain or tightness, dyspnea, lightheadedness or headaches. Denies any recent illnesses, or changes to her health or
medications. She did not receive her medications this morning.
Past History
<Joe rGay MD, Resident - Last Filed: 06/07/24 15:14>
Past History
ED Past Medical History: Arrthythmia, Asthma, CHF, HTN, Hypercholesterolemia, SD, Valvular disease, Psychiatric, Other and Other
ED Past Surgical History: Gynecological, Orthopedic and Other
Patient has exhibited threatening behavior?: No
PSI?: No
Social History
Tobacco: Non-smoker
Alcohol: Former
Drug: None
Personal:
Living: care home
Employment: Not employed
Family History
Family History: Other (Father had heart disease, mother had abdominal aortic aneurysm and also had depression. Paternal grandmother had depression)
Review of Systems
<Joe Gray MD, Resident - Last Filed: 06/07/24 15:14>
Review of Systems
Allergies reviewed?: Yes
All Other Systems: ROS reviewed and negative except as documented in HPI and ROS
Phy Exam
<Joe Gray MD, Resident - Last Filed: 06/07/24 15:14>
General Physical Exam
General Presentation: well appearing and no apparent distress
General Skin: warm and dry
General Habitus: normal
General Mental: alert
General Hydration: appears well hydrated
ENT Exam
ENT Exam: EOMI, pharynx normal, neck supple and normocephalic
Eye Exam
Eye Exam: PERRL, cornea clear and conjunctiva normal
Cardiovascular Exam
Cardiovascular Exam: regular rate/rhythm, no edema, no murmur and normal peripheral pulses
Pulmonary Exam
Pulmonary Exam: lungs clear, no respiratory distress, no rales, no crackles, no rhonchi, no stridor, no wheezing and no cough
Gastrointestinal Exam
Gastrointestinal Exam: normal bowel sounds, soft, no organomegaly, no pulsatile mass, non distended and tender (upper more prominent but diffuse)
Neurological Exam
Neurological Exam: alert, oriented x3, no motor deficits and speech normal
Musculoskeletal Exam
Musculoskeletal Exam: no edema and other (BL LE and L UE amputation status)
Skin Exam
Skin Exam: normal color, warm/dry, no rash and no petechia
Psychiatric Exam
Psychiatric Exam: normal mood/affect
Course
<Joe Gray MD, Resident - Last Filed: 06/07/24 15:14>
Orders/Labs/Results
Orders:
Orders
06/07/24 06:43
Complete Blood Count/With Diff Urgent
Comprehensive Metabolic Panel Urgent
Lipase Urgent
06/07/24 07:07
CT Abd/pelvis W Iv Cont Urgent
Comment:
Reason For Exam: upper abdominal pain
Lorazepam [Ativan] 0.5 mg PO NOW STA
Ondansetron Injectable [Zofran] 4 mg IV NOW STA
06/07/24 07:15
Ketorolac [Toradol] 15 mg IV NOW STA
06/07/24 07:46
Lactate Level [Lactic Acid] Stat
06/07/24 09:18
Morphine Sulfate 4 mg IV NOW STA
06/07/24 09:27
Famotidine [Pepcid] 40 mg PO NOW STA
Sucralfate [Carafate] 1 gram PO NOW STA
06/07/24 09:30
Electrocardiogram (*1) Urgent
Reason for Study: Chest Pain
EKG- Treatment ONCE
06/07/24 10:25
Butalb/Acetaminophen/Caffeine [Fioricet] 1 tab PO NOW STA
06/07/24 12:14
Morphine Sulfate 4 mg IV NOW STA
06/07/24 12:40
Morphine Sulfate [Morphine Oral Solution] 5 mg PO NOW STA
Abnormal Lab Results
06/07/24
06:43
WBC 12.6 H 10^3/uL
(4.8-10.8)
RBC 4.10 L 10^6/uL
(4.20-5.40)
MCH 32.2 H pg
(27.0-31.0)
MPV 10.8 H fL
(7.4-10.4)
Abs Immat Gran (auto) 0.1 H 10^3/uL
(0-0.05)
Absolute Neuts (auto) 10.2 H 10^3/uL
(1.4-6.5)
Immature Gran % 0.6 H %
(0-0.5)
Neutrophils % 80.9 H %
(42.2-75.2)
Lymphocytes % 12.5 L %
(20.5-51.1)
BUN 32 H mg/dl
(7-17)
Creatinine 1.1 H mg/dL
(0.6-1.0)
Glucose 140 H mg/dl
(70-99)
Alkaline Phosphatase 161 H U/L
(38-126)
06/07/24 06:43
06/07/24 06:43
Vital Signs
Initial and Last Documented VS:
Initial Vital Signs
Pulse Resp BP Pulse Ox
89 17 167/99 95
06/07/24 06:19 06/07/24 06:19 06/07/24 06:19 06/07/24 06:19
Last Documented Vital Signs
Temp Pulse Resp BP Pulse Ox
98.3 F 84 17 167/87 93
06/07/24 06:23 06/07/24 06:23 06/07/24 06:23 06/07/24 10:10 06/07/24 10:11
<Rylee Mills MD - Last Filed: 06/07/24 09:44>
Orders/Labs/Results
Orders:
Orders
06/07/24 06:43
Complete Blood Count/With Diff Urgent
Comprehensive Metabolic Panel Urgent
Lipase Urgent
06/07/24 07:07
CT Abd/pelvis W Iv Cont Urgent
Comment:
Reason For Exam: upper abdominal pain
Lorazepam [Ativan] 0.5 mg PO NOW STA
Ondansetron Injectable [Zofran] 4 mg IV NOW STA
06/07/24 07:15
Ketorolac [Toradol] 15 mg IV NOW STA
06/07/24 07:46
Lactate Level [Lactic Acid] Stat
06/07/24 09:18
Morphine Sulfate 4 mg IV NOW STA
06/07/24 09:27
Famotidine [Pepcid] 40 mg PO NOW STA
Sucralfate [Carafate] 1 gram PO NOW STA
06/07/24 09:30
Electrocardiogram (*1) Urgent
Reason for Study: Chest Pain
EKG- Treatment ONCE
06/07/24 10:25
Butalb/Acetaminophen/Caffeine [Fioricet] 1 tab PO NOW STA
06/07/24 12:14
Morphine Sulfate 4 mg IV NOW STA
06/07/24 12:40
Morphine Sulfate [Morphine Oral Solution] 5 mg PO NOW STA
Abnormal Lab Results
06/07/24
06:43
WBC 12.6 H 10^3/uL
(4.8-10.8)
RBC 4.10 L 10^6/uL
(4.20-5.40)
MCH 32.2 H pg
(27.0-31.0)
MPV 10.8 H fL
(7.4-10.4)
Abs Immat Gran (auto) 0.1 H 10^3/uL
(0-0.05)
Absolute Neuts (auto) 10.2 H 10^3/uL
(1.4-6.5)
Immature Gran % 0.6 H %
(0-0.5)
Neutrophils % 80.9 H %
(42.2-75.2)
Lymphocytes % 12.5 L %
(20.5-51.1)
BUN 32 H mg/dl
(7-17)
Creatinine 1.1 H mg/dL
(0.6-1.0)
Glucose 140 H mg/dl
(70-99)
Alkaline Phosphatase 161 H U/L
(38-126)
06/07/24 06:43
06/07/24 06:43
Vital Signs
Initial and Last Documented VS:
Initial Vital Signs
Pulse Resp BP Pulse Ox
89 17 167/99 95
06/07/24 06:19 06/07/24 06:19 06/07/24 06:19 06/07/24 06:19
Last Documented Vital Signs
Temp Pulse Resp BP Pulse Ox
98.3 F 84 17 167/87 93
06/07/24 06:23 06/07/24 06:23 06/07/24 06:23 06/07/24 10:10 06/07/24 10:11
<Joe Gray MD, Resident - Last Filed: 06/07/24 15:14>
MDM/Problems Addressed
Differential Diagnosis Includes:
diverticulitis; cholecystitis; pyelonephritis; gastritis; polypharmacy
MDM/Problems Addressed:
Workup, including CT AP, was within normal limits or at her baseline. Symptoms improved with pain management and Carafate. Discussed outpatient management and patient was agreeable.
<Joe Gray MD, Resident - Last Filed: 06/07/24 15:14>
*Critical Care Note
Total Time (30-74mins, 75-104mins- exclusive of procedures): Not Applicable
<Rylee Mills MD - Last Filed: 06/07/24 09:44>
*EKG
Interpreted by ED Provider?: Yes
Interpretation: normal
Comparison EKG: no changes
Rate: normal
Rhythm: sinus
[place]: normal axis
Interval: normal interval
QRS Pattern: normal QRS
Ischemia: no ischemia
ED Attending Note
<Joe Gray MD, Resident - Last Filed: 06/07/24 15:14>
-
Portions of this chart may have been created with voice recognition software.� Occasional wrong word or��sound alike� substitutions may have occurred due to the inherent limitations of voice recognition software.
<Rylee Mills MD - Last Filed: 06/07/24 09:44>
ED Attending Note
Patient seen and examined by attending physician: Yes
I performed a history and physical exam of patient and discussed management with resident, I reviewed resident's note and agree with documented findings and plan of care.: Yes
ED Attending Note:
Patient appears nontoxic. Heart sounds regular lungs are clear. Abdomen is soft with bilateral upper abdominal tenderness. No pulsatile mass. Patient looks uncomfortable but is fully conversational. Awaiting CT report.
Discharge Plan
Departure
Patient Disposition: Home (Routine Discharge)
Date of Disposition: 06/07/24
Time of Disposition: 10:26
Patient with high blood pressure during this ER visit?: Yes
Condition: Good
Discharge Problem:
Gastritis
Instructions: Gastritis ED
Prescriptions:
New
sucralfate [Carafate] 100 mg/mL suspension
10 ml PO AC Qty: 414 0RF
pantoprazole 40 mg tablet,delayed release (DR/EC)
40 mg PO DAILY 14 Days Qty: 14 0RF
No Action
sennosides 8.6 mg Tablet
17.2 mg PO HSPRN PRN (Reason: constipation)
trazodone 50 mg Tablet
50 mg PO HS
lorazepam 0.5 mg Tablet
0.5 mg PO BID
amitriptyline 10 mg Tablet
10 mg PO DAILY@2000
pantoprazole 40 mg Tablet,Delayed Release (Dr/Ec)
40 mg PO DAILY
ferrous sulfate 325 mg (65 mg iron) Tablet
325 mg PO HS
gabapentin 300 mg Capsule
300 mg PO DAILY@1600
morphine 15 mg Tablet Extended Release
15 mg PO Q12H
albuterol sulfate 90 mcg/actuation Hfa Aerosol Inhaler
1 puff INHALATION R Q4HPRN PRN (Reason: sob)
duloxetine 60 mg Capsule,Delayed Release(Dr/Ec)
60 mg PO DAILY@0900
docusate sodium 100 mg Capsule
200 mg PO DAILY
gabapentin 100 mg Capsule
100 mg PO DAILY
lactulose 10 gram/15 mL Solution
30 ml PO HSPRN PRN (Reason: constipation)
betamethasone dipropionate 0.05 % cream
1 applic topical BIDPRN PRN (Reason: external inferior edema)
nitroglycerin 0.4 mg Tablet, Sublingual
0.4 mg SUBLINGUAL [id number] PRN (Reason: acute angina)
ergocalciferol (vitamin D2) 1,250 mcg (50,000 unit) Capsule
1,250 mcg PO FR@0800
oxycodone 5 mg Tablet
5 mg PO Q6HPRN PRN (Reason: severe pain)
fluticasone propion-salmeterol 232-14 mcg/actuation Aerosol Powdr Breath Activated
1 inh INHALATION R BID
iclrlvwuie-rramqjyezhloz-axgt 50-325-40 mg Tablet
2 tab PO BIDPRN PRN (Reason: headaches)
cyanocobalamin (vitamin B-12) 500 mcg Tablet
1,000 mcg PO DAILY
ntiosaerqp-tyjzyqxxssmqj-tbfw 50-300-40 mg Capsule
2 cap PO BID@0900,1700
prazosin 1 mg capsule
1 mg PO BID
ipratropium-albuterol 0.5 mg-3 mg(2.5 mg base)/3 mL Solution For Nebulization
3 ml INHALATION R Q4HPRN PRN (Reason: SOB, cough)
famotidine 20 mg Tablet
20 mg PO DAILY
ondansetron 4 mg Tablet,Disintegrating
4 mg PO Q4HPRN PRN (Reason: nausea/vomiting)
loratadine 10 mg Tablet
10 mg PO DAILY
guaifenesin [Mucinex] 1,200 mg Tablet Extended Release 12hr
1,200 mg PO [id number] PRN (Reason: cough)
Eliquis 5 mg Tablet
5 mg PO BID
Jardiance 10 mg Tablet
10 mg PO DAILY
Qulipta 30 mg Tablet
30 mg PO DAILY
gabapentin 600 mg Tablet
600 mg PO HS
polyethylene glycol 3350 17 gram Powder In Packet
17 g PO DAILY
rosuvastatin 20 mg Tablet
20 mg PO DAILY
hydralazine 10 mg Tablet
10 mg PO TID Qty: 90 0RF
clonidine 0.1 mg/24 hr Patch Weekly
0.1 mg transdermal Q7D Qty: 4 0RF
metoprolol succinate 100 mg Tablet Extended Release 24 Hr
100 mg PO BID Qty: 60 0RF
Referrals:
Lela Rodney MD [Family Provider] - Follow up in 1 week
Activity Restrictions/Additional Instructions:
Blood work and imaging results were normal. Likely have reflux disease or gastritis. Please follow-up with your primary.
Interventions
Interventions:
*Risk Screen - Suicide Last Done: 06/07/24 06:23
*General Assessment Last Done: 06/07/24 06:23
*Neglect/Abuse Screening Last Done: 06/07/24 06:23
ED- Fall Risk Assessment Last Done: 06/07/24 06:38
*ED COVID-19 Vaccine History Last Done: 06/07/24 06:38
*Nursing Disposition Last Done: 06/07/24 13:40
[facility] Assessment Last Done: 06/07/24 06:38
Discharge Date and Time
Discharge Date/Time: 06/07/24 13:10
Print Language: CITIZEN OF [place]
[2024-06-07 06:58] LABS: % Basophils 0.4 % (0-2); % Eosinophils 0.8 % (0-6); % Immature Granulocytes 0.6 % (0-0.5); % Lymphocytes 12.5 % (20.5-51.1); % Monocytes 4.8 % (1.7-9.3); % Neutrophils 80.9 % (42.2-75.2); Absolute Basophils 0.1 10^3/uL (0-0.2); Absolute Eosinophils 0.1 10^3/uL (0-0.7); Absolute Immature Granulocytes 0.1 10^3/uL (0-0.05); Absolute Lymphocytes 1.6 10^3/uL (1.2-3.4); Absolute Monocytes 0.6 10^3/uL (0.1-0.6); Absolute Neutrophils 10.2 10^3/uL (1.4-6.5); Hemoglobin 13.2 g/dL (12.0-16.0); Mean Corpuscular Hgb 32.2 pg (27.0-31.0); Mean Corpuscular Volume 97.6 fL (81.0-99.0); Mean Platelet Volume 10.8 fL (7.4-10.4); Nucleated Red Blood Cells % 0 %; Platelet Count 196 10^3/uL (130-400); Red Cell Dist. Width 12.5 % (11.5-14.5); White Blood Cell Count 12.6 10^3/uL (4.8-10.8)
[2024-06-07 07:00] VITALS: BP 175/91
[2024-06-07 07:10] LABS: ALT (SGPT) 20 U/L (0-35); AST (SGOT) 24 U/L (14-36); Alkaline Phosphatase 161 U/L (38-126); Blood Urea Nitrogen 32 mg/dl (7-17); Calcium 9.6 mg/dl (8.4-10.2); Carbon Dioxide 28 mmol/L (22-30); Chloride 103 mmol/L (98-107); Glucose 140 mg/dl (70-99); Lipase 69 U/L (23-300); Potassium 4.2 mmol/L (3.5-5.1); Sodium 142 mmol/L (135-145); Total Bilirubin 0.3 mg/dl (0.2-1.3); Total Protein 7.1 g/dl (6.3-8.2); eGFR 56.11
[2024-06-07] MEDS: ATIVAN 0.5 MG PO (07:26)
[2024-06-07] MEDS: ZOFRAN 4 MG IV (07:27)
[2024-06-07] MEDS: TORADOL 15 MG IV (07:33)
[2024-06-07 08:03] LABS: Lactic Acid 0.9 mmol/L (0.7-2.0)
[2024-06-07 08:25] VITALS: BP 169/76
[2024-06-07] MEDS: MORPHINE SULFATE 4 MG IV (09:27)
[2024-06-07] MEDS: PEPCID 40 MG PO (09:38)
[2024-06-07] MEDS: CARAFATE 1 GRAM PO (09:38)
[2024-06-07 10:10] VITALS: BP 167/87
[2024-06-07] MEDS: FIORICET 1 TAB PO (10:49)
[2024-06-07] MEDS: MORPHINE ORAL SOLUTION 5 MG PO (12:51)
== END 2024-06-07 13:10 | disposition home or self-care (01) ==
LOC: EMR 06:18
PROVIDERS: Student in an Organized Health Care Education/Training Program; EMERGENCY PHYSICIAN Emergency Medicine; FAMILY PHYSICIAN Student in an Organized Health Care Education/Training Program; OTHER PHYSICIAN Family Medicine
DX: K29.70 Gastritis, unspecified, without bleeding (principal); I13.0 Hypertensive heart and chronic kidney disease with heart failure and stage 1 through stage 4 chronic kidney disease, or unspecified chronic kidney disease; I50.9 Heart failure, unspecified; N18.31 Chronic kidney disease, stage 3a; E78.00 Pure hypercholesterolemia, unspecified; J45.909 Unspecified asthma, uncomplicated; I25.2 Old myocardial infarction; I38 Endocarditis, valve unspecified; Z82.49 Family history of ischemic heart disease and other diseases of the circulatory system
CPT/HCPCS: 99284; 96374; 96375; 74177; 80053; 83605; 83690; 85025; 93005; Q9967

== ENCOUNTER → 2024-09-24 10:31 | Outpatient (REF) | payer MEDICARE, SELFPAY ==
[2024-09-24 14:17] LABS: Intact PTH 122.6 pg/ml (13.6-85.8)
[2024-09-24 14:48] LABS: Albumin 3.7 g/dl (3.5-5.0); Blood Urea Nitrogen 28 mg/dl (7-17); Calcium 9.1 mg/dl (8.4-10.2); Carbon Dioxide 26 mmol/L (22-30); Chloride 101 mmol/L (98-107); Glucose 98 mg/dl (70-99); Phosphorus 3.7 mg/dl (2.5-4.5); Sodium 137 mmol/L (135-145); eGFR 50.23
[2024-09-24 17:26] LABS: Protein/creatinine Ratio 0.6; Urine Protein 13 mg/dl
== END ==
LOC: OLABSOL 10:31
PROVIDERS: ATTENDING PHYSICIAN Internal Medicine
DX: N25.81 Secondary hyperparathyroidism of renal origin (principal); N18.31 Chronic kidney disease, stage 3a; R80.9 Proteinuria, unspecified; R94.4 Abnormal results of kidney function studies
CPT/HCPCS: 36415; 80069; 82565; 82570; 83970; 84155; 84156

== ENCOUNTER → 2025-05-18 09:42 | Outpatient (REF) | payer MEDICARE, SELFPAY ==
[2025-05-18 10:39] LABS: Hematocrit 36.7 % (37.0-47.0); Hemoglobin 11.7 g/dL (12.0-16.0); Mean Corp Hgb Conc. 31.9 g/dL (33.0-37.0); Mean Corpuscular Volume 101.4 fL (81.0-99.0); Nucleated Red Blood Cells % 0 %; Platelet Count 201 10^3/uL (130-400); Red Cell Dist. Width 12.8 % (11.5-14.5)
[2025-05-18 10:44] LABS: Albumin 3.5 g/dl (3.5-5.0); Blood Urea Nitrogen 35 mg/dl (7-17); Calcium 8.5 mg/dl (8.4-10.2); Carbon Dioxide 25 mmol/L (22-30); Chloride 109 mmol/L (98-107); Glucose 112 mg/dl (70-99); Potassium 5.2 mmol/L (3.5-5.1); Sodium 138 mmol/L (135-145); eGFR 45.63
[2025-05-18 10:56] LABS: Vitamin D, 25-OH*** 39.1 ng/mL (30-80)
== END ==
LOC: OLABSOL 09:42
PROVIDERS: ATTENDING PHYSICIAN Internal Medicine
DX: N18.31 Chronic kidney disease, stage 3a (principal); N25.81 Secondary hyperparathyroidism of renal origin
CPT/HCPCS: 36415; 80069; 82306; 82570; 83970; 84156; 85025

== ENCOUNTER 2025-08-10 00:52 | Inpatient (IN) | payer OTHER, SELFPAY ==
[2025-08-09 14:37] VITALS: BP 98/45
[2025-08-09 15:12] LABS: Hematocrit 35.6 % (37.0-47.0); Hemoglobin 11.6 g/dL (12.0-16.0); Mean Corp Hgb Conc. 32.6 g/dL (33.0-37.0); Mean Corpuscular Volume 100.8 fL (81.0-99.0); Nucleated Red Blood Cells % 0 %; Platelet Count 184 10^3/uL (130-400); Red Cell Dist. Width 12.3 % (11.5-14.5)
[2025-08-09 15:28] LABS: COVID-19 Antigen Negative (Negative)
[2025-08-09 15:32] LABS: ALT (SGPT) 12 U/L (0-35); AST (SGOT) 17 U/L (14-36); Albumin 3.6 g/dl (3.5-5.0); Alkaline Phosphatase 115 U/L (38-126); Blood Urea Nitrogen 39 mg/dl (7-17); Calcium 8.6 mg/dl (8.4-10.2); Carbon Dioxide 24 mmol/L (22-30); Chloride 105 mmol/L (98-107); Glucose 94 mg/dl (70-99); Potassium 4.5 mmol/L (3.5-5.1); Sodium 135 mmol/L (135-145); Total Protein 6.5 g/dl (6.3-8.2); eGFR 38.43
[2025-08-09 19:04] VITALS: BP 123/62
[2025-08-09 20:00] VITALS: BP 120/65
[2025-08-09] MEDS: VENTOLIN NEBULES 2.5 MG INH (20:25)
[2025-08-09] MEDS: VIBRAMYCIN 100 MG PO (20:25)
--- NOTE | 2025-08-09 20:27 | ED.GENMED ---
History of Present Illness
<Radha Massey PA-C - Last Filed: 08/10/25 02:30>
General
Chief Complaint: Cough
Time Seen by Provider: 08/09/25 18:49
History of Present Illness
History of Present Illness:
see MDM
Past History
<Radha Massey PA-C - Last Filed: 08/10/25 02:30>
Past History
ED Past Medical History: Arrthythmia, Asthma, CHF, HTN, Hypercholesterolemia, MO, Valvular disease, Psychiatric, Other and Other
ED Past Surgical History: Gynecological, Orthopedic and Other
Patient has exhibited threatening behavior?: No
PSI?: No
Social History
Tobacco: Non-smoker
Alcohol: Former
Drug: None
Personal:
Living: [facility]
Employment: Not employed
Family History
Family History: Other (Father had heart disease, mother had abdominal aortic aneurysm and also had depression. Paternal grandmother had depression)
Phy Exam
<Radha Massey PA-C - Last Filed: 08/10/25 02:30>
Physical Exam
Physical Exam:
see MDM
Course
<Radha Massey PA-C - Last Filed: 08/10/25 02:30>
Orders/Labs/Results
Orders:
Orders
08/09/25 14:39
CR Chest - 2 Views Urgent
Comment:
Reason For Exam: cough
08/09/25 14:56
COVID-19 Antigen Urgent
Source: Nasal Swab
Complete Blood Count/With Diff Urgent
Comprehensive Metabolic Panel Urgent
Influenza A+B Rapid Molecular Urgent
EDU Source: Nasal Swab
Specimen Description:
08/09/25 20:05
Albuterol Nebs [Ventolin Nebules] 2.5 mg INH R NOW STA
CefTRIAXone [Rocephin] 1,000 mg IV NOW STA
Dexamethasone Sod Phosphate [Decadron] 10 mg IV NOW STA
08/09/25 20:07
Doxycycline [Vibramycin] 100 mg PO NOW STA
08/09/25 20:41
Sterile Water [Sterile Water For Injection] 10 ml .ROUTE .STK-MED ONE
08/10/25 00:26
Admit/Transfer Patient As Directed
Co-Sign Provider:
Level of Care: Inpatient admission
Assign to:: Telemetry
Physician / Group: Peña
Diagnosis: Asthmatic Bronchitis
Reason for Telemetry: Arrhythmia
Date to Stop Telemetry: 08/13/25
Time to Stop Telemetry: 11:00
Reason for Hospitalization: Asthmatic Bronchitis
Expected length of stay greater than two midnights?: Yes
ELOS- Estimated Length of Stay in days: 2
I certify the patient meets the requirements for IP care: Yes
PRN Pain Medication Management As Directed
May give lesser potent ordered pain med per pt: Yes
preference::
Protocol:: Medication orders for pain may be administered in a
manner that supports deferring to patient preference
when the pt is:
- Requesting an ordered lesser potent pain medication.
Least to most potent pain medications are defined
as: acetaminophen < NSAID < tramadol < opioids
(morphine, oxycodone, hydromorphone).
- Requesting a lesser dose of the same medication IF
ORDERED.
- Requesting a less intrusive route of administration
if both routes are prescribed by the provider (PO <
IV).
08/10/25 00:30
Code Status As Directed
Resuscitation Status: Full Code
08/10/25 01:21
Acetaminophen [Tylenol] 650 mg PO Q4HPRN PRN
Albuterol Nebs [Ventolin Nebules] 2.5 mg INH R Q4HPRN PRN
Apixaban [Eliquis] 5 mg PO BID
Dextrose 50%-Water [Dextrose 50% Syringe] 12.5 grams IV [id number] PRN
Glucagon [GlucaGen] 1 mg IM PRN PRN
Oxycodone [Roxicodone] 5 mg PO Q6HPRN PRN severe pain
Trazodone [Desyrel] 50 mg PO HS
08/10/25 01:21
Activity As Directed
Activity Level: Out of Bed- Chair
With Assistance
Bedside Glucose Monitoring As Directed
Frequency: AC&HS
Additional Instructions:: Change to q6h if pt on TPN, tube feeding or not eating
Bladder Scan As Directed
Follow Bladder Retention/Intermittent Cath Algorithm?: Yes
PRN if no void in __ hours: 6
Frequency: Per Retention Algorithm
If Bladder Scan Result >: 400
then:: Straight cath
EKG with chest pain [ECG as needed] As Directed
ECG as needed for:: Chest Pain
I/O [Intake/ Output] As Directed
Frequency: Per unit guidelines
Straight Cath As Directed
Frequency: Per Retention Algorithm
Additional Instructions: straight cath as needed per acute urinary retention algorithm for 24 hrs
Additional Instructions: for bladder scan greater than 400 mL
Vital Signs As Directed
Frequency: Per unit guidelines
Weight As Directed
Frequency: Daily
Chest PT [Rx Chest Pt] [RESP] Routine
Special Instructions: BID
Incentive Spirometry [Rx Incentive Spirometry] [RESP] Routine
Frequency: q1h while awake
Oxygen Therapy [O2 Therapy] [RESP] Routine
Titrate/Wean O2 to maintain O2 sat greater than (%): 94
08/10/25 Breakfast
2000 calorie (17 carb) Diabetic
Basic Metabolic Panel IN AM
Complete Blood Count/No Diff IN AM
Glycohemoglobin (HgbA1c) IN AM
08/10/25 07:30
Insulin Aspart Corrective Low [Novolog Flexpen-Low Resistance] See Protocol SC AC
Sucralfate Suspension [Carafate Suspension] 1 gm PO AC
08/10/25 08:00
Amlodipine [Norvasc] 10 mg PO DAILY
Budesonide [Pulmicort] 0.5 mg INH R BID
Dapagliflozin [Farxiga] 10 mg PO DAILY
Docusate Sodium [Colace] 200 mg PO DAILY
Doxycycline [Vibramycin] 100 mg PO Q12
Gabapentin [Neurontin] 100 mg PO DAILY
Guaifenesin [Mucinex] 600 mg PO Q12
HydrALAZINE [Apresoline] 20 mg PO DAILY
Ipratropium/Albuterol Sulfate [Duoneb] 3 ml INH R QID
Loratadine [Claritin] 10 mg PO DAILY
Lorazepam [Ativan] 1 mg PO DAILY
Metoprolol Xl [Toprol Xl] 50 mg PO DAILY
Morphine Sulfate Extended Rel. [Ms Contin (Extended Release)] 15 mg PO Q12
Pantoprazole [Protonix] 40 mg PO DAILY
Polyethylene Glycol Powder [Miralax] 17 grams PO DAILY
Rosuvastatin Calcium [Crestor] 20 mg PO DAILY
08/10/25 09:00
Duloxetine Delayed Release [Cymbalta Delayed Release] 90 mg PO DAILY@0900
08/10/25 16:00
Gabapentin [Neurontin] 300 mg PO DAILY@1600
08/10/25 18:00
Prazosin HCl [Minipress] 1 mg PO QPM
08/10/25 20:00
CefTRIAXone [Rocephin] 1,000 mg IV Q24H
08/10/25 21:00
Amitriptyline [Elavil] 10 mg PO DAILY@2099
HydrALAZINE [Apresoline] 50 mg PO DAILY@2099
Lorazepam [Ativan] 0.5 mg PO DAILY@2099
08/10/25 22:00
Gabapentin [Neurontin] 600 mg PO HS
08/13/25 11:00
DC Protocol for Telemetry ONCE
08/14/25 01:00
Clonidine [Bnxkubvh-Lol-1] 0.1 mg TRANSDERM Q7D
Abnormal Lab Results
08/09/25
14:56
RBC 3.53 L 10^6/uL
(4.20-5.40)
Hgb 11.6 L g/dL
(12.0-16.0)
Hct 35.6 L %
(37.0-47.0)
MCV 100.8 H fL
(81.0-99.0)
MCH 32.9 H pg
(27.0-31.0)
MCHC 32.6 L g/dL
(33.0-37.0)
Absolute Neuts (auto) 6.9 H 10^3/uL
(1.4-6.5)
Absolute Monos (auto) 1.0 H 10^3/uL
(0.1-0.6)
BUN 39 H mg/dl
(7-17)
Creatinine 1.5 H mg/dL
(0.6-1.0)
08/09/25 14:56
08/09/25 14:56
Vital Signs
Initial and Last Documented VS:
Initial Vital Signs
Temp Pulse Resp BP Pulse Ox
37.0 C 62 18 98/45 89
08/09/25 14:37 08/09/25 14:37 08/09/25 14:37 08/09/25 14:37 08/09/25 14:37
Last Documented Vital Signs
Temp Pulse Resp BP Pulse Ox
37.0 C 68 19 109/63 95
08/09/25 14:37 08/10/25 01:45 08/10/25 01:45 08/10/25 02:00 08/10/25 01:45
Coltonlt;Graham Preciado MD - Last Filed: 08/09/25 23:26>
Orders/Labs/Results
Orders:
Orders
08/09/25 14:39
CR Chest - 2 Views Urgent
Comment:
Reason For Exam: cough
08/09/25 14:56
COVID-19 Antigen Urgent
Source: Nasal Swab
Complete Blood Count/With Diff Urgent
Comprehensive Metabolic Panel Urgent
Influenza A+B Rapid Molecular Urgent
EDU Source: Nasal Swab
Specimen Description:
08/09/25 20:05
Albuterol Nebs [Ventolin Nebules] 2.5 mg INH R NOW STA
CefTRIAXone [Rocephin] 1,000 mg IV NOW STA
Dexamethasone Sod Phosphate [Decadron] 10 mg IV NOW STA
08/09/25 20:07
Doxycycline [Vibramycin] 100 mg PO NOW STA
08/09/25 20:41
Sterile Water [Sterile Water For Injection] 10 ml .ROUTE .STK-MED ONE
08/10/25 00:26
Admit/Transfer Patient As Directed
Co-Sign Provider:
Level of Care: Inpatient admission
Assign to:: Telemetry
Physician / Group: Peña
Diagnosis: Asthmatic Bronchitis
Reason for Telemetry: Arrhythmia
Date to Stop Telemetry: 08/13/25
Time to Stop Telemetry: 11:00
Reason for Hospitalization: Asthmatic Bronchitis
Expected length of stay greater than two midnights?: Yes
ELOS- Estimated Length of Stay in days: 2
I certify the patient meets the requirements for IP care: Yes
PRN Pain Medication Management As Directed
May give lesser potent ordered pain med per pt: Yes
preference::
Protocol:: Medication orders for pain may be administered in a
manner that supports deferring to patient preference
when the pt is:
- Requesting an ordered lesser potent pain medication.
Least to most potent pain medications are defined
as: acetaminophen < NSAID < tramadol < opioids
(morphine, oxycodone, hydromorphone).
- Requesting a lesser dose of the same medication IF
ORDERED.
- Requesting a less intrusive route of administration
if both routes are prescribed by the provider (PO <
IV).
08/10/25 00:30
Code Status As Directed
Resuscitation Status: Full Code
08/10/25 01:21
Acetaminophen [Tylenol] 650 mg PO Q4HPRN PRN
Albuterol Nebs [Ventolin Nebules] 2.5 mg INH R Q4HPRN PRN
Apixaban [Eliquis] 5 mg PO BID
Dextrose 50%-Water [Dextrose 50% Syringe] 12.5 grams IV [id number] PRN
Glucagon [GlucaGen] 1 mg IM PRN PRN
Oxycodone [Roxicodone] 5 mg PO Q6HPRN PRN severe pain
Trazodone [Desyrel] 50 mg PO HS
08/10/25 01:21
Activity As Directed
Activity Level: Out of Bed- Chair
With Assistance
Bedside Glucose Monitoring As Directed
Frequency: AC&HS
Additional Instructions:: Change to q6h if pt on TPN, tube feeding or not eating
Bladder Scan As Directed
Follow Bladder Retention/Intermittent Cath Algorithm?: Yes
PRN if no void in __ hours: 6
Frequency: Per Retention Algorithm
If Bladder Scan Result >: 400
then:: Straight cath
EKG with chest pain [ECG as needed] As Directed
ECG as needed for:: Chest Pain
I/O [Intake/ Output] As Directed
Frequency: Per unit guidelines
Straight Cath As Directed
Frequency: Per Retention Algorithm
Additional Instructions: straight cath as needed per acute urinary retention algorithm for 24 hrs
Additional Instructions: for bladder scan greater than 400 mL
Vital Signs As Directed
Frequency: Per unit guidelines
Weight As Directed
Frequency: Daily
Chest PT [Rx Chest Pt] [RESP] Routine
Special Instructions: BID
Incentive Spirometry [Rx Incentive Spirometry] [RESP] Routine
Frequency: q1h while awake
Oxygen Therapy [O2 Therapy] [RESP] Routine
Titrate/Wean O2 to maintain O2 sat greater than (%): 94
08/10/25 Breakfast
2000 calorie (17 carb) Diabetic
Basic Metabolic Panel IN AM
Complete Blood Count/No Diff IN AM
Glycohemoglobin (HgbA1c) IN AM
08/10/25 07:30
Insulin Aspart Corrective Low [Novolog Flexpen-Low Resistance] See Protocol SC AC
Sucralfate Suspension [Carafate Suspension] 1 gm PO AC
08/10/25 08:00
Amlodipine [Norvasc] 10 mg PO DAILY
Budesonide [Pulmicort] 0.5 mg INH R BID
Dapagliflozin [Farxiga] 10 mg PO DAILY
Docusate Sodium [Colace] 200 mg PO DAILY
Doxycycline [Vibramycin] 100 mg PO Q12
Gabapentin [Neurontin] 100 mg PO DAILY
Guaifenesin [Mucinex] 600 mg PO Q12
HydrALAZINE [Apresoline] 20 mg PO DAILY
Ipratropium/Albuterol Sulfate [Duoneb] 3 ml INH R QID
Loratadine [Claritin] 10 mg PO DAILY
Lorazepam [Ativan] 1 mg PO DAILY
Metoprolol Xl [Toprol Xl] 50 mg PO DAILY
Morphine Sulfate Extended Rel. [Ms Contin (Extended Release)] 15 mg PO Q12
Pantoprazole [Protonix] 40 mg PO DAILY
Polyethylene Glycol Powder [Miralax] 17 grams PO DAILY
Rosuvastatin Calcium [Crestor] 20 mg PO DAILY
08/10/25 09:00
Duloxetine Delayed Release [Cymbalta Delayed Release] 90 mg PO DAILY@0900
08/10/25 16:00
Gabapentin [Neurontin] 300 mg PO DAILY@1600
08/10/25 18:00
Prazosin HCl [Minipress] 1 mg PO QPM
08/10/25 20:00
CefTRIAXone [Rocephin] 1,000 mg IV Q24H
08/10/25 21:00
Amitriptyline [Elavil] 10 mg PO DAILY@2100
HydrALAZINE [Apresoline] 50 mg PO DAILY@2099
Lorazepam [Ativan] 0.5 mg PO DAILY@2100
08/10/25 22:00
Gabapentin [Neurontin] 600 mg PO HS
08/13/25 11:00
DC Protocol for Telemetry ONCE
08/14/25 01:00
Clonidine [Usxgycaf-Eif-6] 0.1 mg TRANSDERM Q7D
Abnormal Lab Results
08/09/25
14:56
RBC 3.53 L 10^6/uL
(4.20-5.40)
Hgb 11.6 L g/dL
(12.0-16.0)
Hct 35.6 L %
(37.0-47.0)
MCV 100.8 H fL
(81.0-99.0)
MCH 32.9 H pg
(27.0-31.0)
MCHC 32.6 L g/dL
(33.0-37.0)
Absolute Neuts (auto) 6.9 H 10^3/uL
(1.4-6.5)
Absolute Monos (auto) 1.0 H 10^3/uL
(0.1-0.6)
BUN 39 H mg/dl
(7-17)
Creatinine 1.5 H mg/dL
(0.6-1.0)
08/09/25 14:56
08/09/25 14:56
Vital Signs
Initial and Last Documented VS:
Initial Vital Signs
Temp Pulse Resp BP Pulse Ox
37.0 C 62 18 98/45 89
08/09/25 14:37 08/09/25 14:37 08/09/25 14:37 08/09/25 14:37 08/09/25 14:37
Last Documented Vital Signs
Temp Pulse Resp BP Pulse Ox
37.0 C 68 19 109/63 95
08/09/25 14:37 08/10/25 01:45 08/10/25 01:45 08/10/25 02:00 08/10/25 01:45
<Radha Massey PA-C - Last Filed: 08/10/25 02:30>
MDM/Problems Addressed
Differential Diagnosis Includes:
see MDM
MDM/Problems Addressed:
Note:
CHIEF COMPLAINT(S)
Cough and shortness of breath.
HISTORY OF PRESENT ILLNESS
The patient, 64 Y/O female with a reported history of asthma and amputations due to possible septic embolism, presents with a cough that has persisted for approximately one week. She describes the cough as productive of yellowish mucus and is
associated with episodes of vomiting. The patient reports feeling very tired and sleepy, but she is unsure about having a fever. There is no diarrhea. The patient denies using home oxygen, but she has been experiencing episodes of shortness of
breath.pt has h/o asthma/
The patient uses inhalers regularly, but they provide little relief.
Upon visiting her primary care physician earlier today, the patient was noted to have low oxygen levels, leading to the use of supplemental oxygen. An X-ray from her doctors office indicated subtle, patchy opacities suggestive of possible pneumonia
or reactive airway disease consistent with an asthmatic bronchitis picture. Additionally, the patient tested negative for both influenza and COVID-19. She denies any history of receiving systemic corticosteroids for asthma.
PAST MEDICAL AND SURGICAL HISTORY
The patient has a history of diabetes and previous amputations.
EXTERNAL RECORDS REVIEWED
According to previous medical records, chest X-ray findings from earlier today showed subtle patchy opacity potentially indicative of pneumonia or reactive airway disease. Influenza and COVID-19 tests were negative.
CHRONIC MEDICAL CONDITIONS SIGNIFICANTLY AFFECTING CARE
Diabetes.
ALLERGIES
None reported.
REVIEW OF SYSTEMS
- Cough: Productive of yellowish mucus, associated with vomiting, blood-tinged.
- Respiratory: Episodes of shortness of breath, wheezing noted.
- Gastrointestinal: No diarrhea, vomiting associated with coughing.
- General: Fatigue, feeling very tired and sleepy.
PHYSICAL EXAM
GENERAL: Alert , in no apparent distress
EYE: pupils equal and reactive
NECK: Supple
ENT: b/l TM s clear, pharynx erythematous but no tonsillar hypertrophy or exudates
CARDIAC: Regular rate and rhythm, no edema
LUNGS: Clear breath sounds bilaterally, no acute respiratory distress, no wheezes/rales/rhonchi, occ cough
ABDOMEN: Soft, without focal tenderness, no r/g, no cvat, normal bowel sounds
NEUROLOGICAL: Alert and oriented, no focal neuro deficits
SKIN: Warm and dry, skin intact.
MUSCULOSKELETAL: No edema, well perfused.
PSYCH: Normal and appropriate interaction.
- Nursing notes reviewed and vital signs reviewed.
PROBLEM LIST
Acute:
- Cough with possible pneumonia.
- Shortness of breath.
- Reactive airway disease (asthmatic bronchitis picture).
PLAN
1. Administer nebulizer treatment to address wheezing and reactive airway symptoms.
2. Consider hospitalization for further observation and management, including potential initiation of antibiotics and corticosteroids.
3. Monitor oxygen saturation levels closely due to previously documented low levels in the 80s.
4. Consult pulmonology if possible, given the diagnosis and need for specialized care.
5. Ensure patient receives current medications and manages diabetes while in hospital.
DIFFERENTIAL DIAGNOSIS
The Differential Diagnosis includes, in no particular order and is not limited to:
1. Pneumonia
2. Asthmatic bronchitis
3. Chronic obstructive pulmonary disease exacerbation
4. Acute bronchitis
5. Pulmonary embolism
6. Heart failure
7. Tuberculosis
8. Lung abscess
9. Bronchiectasis
10. Interstitial lung disease
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
, Fatigue, dyspnea. Sent from her primary care's office for wheezing and hypoxia. Patient's O2 sats 88% on room air. She is stable on 2 L. She is wheezing throughout. She has a moderate cough. Her chest x-ray independently reviewed by me shows
a mild pneumonia versus reactive airway.
She does have a normal white count
Will admit for IV antibiotics, steroids, nebs, O2
<Radha Massey PA-C - Last Filed: 08/10/25 02:30>
*Pulse Oximetry
SaO2: 95
Nasal Cannula flow liters per minute: 2
Oxygen Mode of Delivery: Room air
Patient hypoxic: yes (89)
*Critical Care Note
Total Time (30-74mins, 75-104mins- exclusive of procedures): Not Applicable
ED Attending Note
<Radha Massey PA-C - Last Filed: 08/10/25 02:30>
-
Portions of this chart may have been created with voice recognition software.� Occasional wrong word or��sound alike� substitutions may have occurred due to the inherent limitations of voice recognition software.
<Graham Preciado MD - Last Filed: 08/09/25 23:26>
ED Attending Note
Patient seen and examined by attending physician: Yes
ED Attending Note:
Patient with history of PE on Eliquis and asthma, presents to ED secondary to 1 week history of persistent cough with worsening shortness of breath. Patient was evaluated by her primary care physician who referred patient to ED for an evaluation.
Denies fever or chills. Denies nausea, vomiting, or diarrhea. Patient does report decreased appetite. Denies back pain. Patient states that she currently resides at [facility], where there are number of residents with similar symptoms. Upon
arrival, patient is found to be hypoxic, and she does not use oxygen normally.
Physical Exam
General: mild respiratory distress, not acutely ill. afebrile
Head: nc/at. eomi
Neck: supple. normal range of motion.
Heart: s1/s2 regular rate and rhythm
Lungs: mild respiratory distress. diffuse wheezing bilaterally
Abdomen: normal bowel sounds. not tender.
Neuro: alert and oriented x 3. no focal neurological deficits
Skin: no rash
Psychiatric: well kept. interactive and cooperative
History and exam concerning for hypoxia, likely secondary to asthma exacerbation due to potential pneumonia versus bronchitis. Patient will be admitted for continued nebulizer treatment, steroids along with IV antibiotics.
Discharge Plan
Departure
Patient Disposition: Admit
Date of Disposition: 08/09/25
Time of Disposition: 20:59
Admit to: Med/Surg
Presentation/result/management discussed w/ accepting MD/DO: Hospitalist
Condition: Fair
Covid-19: Negative COVID-19
Discharge Problem:
Pneumonia, Asthma, Hypoxia
Interventions
Interventions:
*General Assessment Last Done: 08/09/25 14:38
*Neglect/Abuse Screening Last Done: 08/09/25 14:38
*ED COVID-19 Vaccine History Last Done: 08/09/25 14:38
*ED Influenza Vaccine History Last Done: 08/09/25 14:38
[facility] Fall Risk Assessment Tool Last Done: 08/09/25 20:33
*Risk Screen - Suicide (C-SSRS) Last Done: 08/09/25 14:38
ED- Pulmonary Assessment Last Done: 08/09/25 20:32
[2025-08-09 20:39] VITALS: BMI 27.2
--- NOTE | 2025-08-09 20:40 | EDRN ---
height was prior to b/l below the knee amputations
[2025-08-09 21:00] VITALS: BP 128/88
[2025-08-09] MEDS: DECADRON 10 MG IV (21:23)
[2025-08-09] MEDS: ROCEPHIN 1000 MG IV (21:24)
[2025-08-09 22:00] VITALS: BP 165/94
[2025-08-09 23:00] VITALS: BP 112/49
[2025-08-10] VITALS (14 sets, daily range): BP systolic 95–155; BP diastolic 50–87; BMI 27.2
--- NOTE | 2025-08-10 00:33 | HPS.HSE ---
Family Physician
-
Family Physician: Mahesh Amanda
Chief Complaint
-
Cough, SOB
History of Present Illness
Patient is a 64y F with PMH significant for multiple amputations secondary to sepsis, hypertension, CKD and chronic bronchitis who presents to ED complaining of cough and SOB x 1 week. Patient reports multiple sick residents at her assisted
living facility. She notes cough that has been productive of yellow / green mucus. Pos shortness of breath - mostly with exertion / transfers / etc. No chest pain. No N/V. Pos chills.
Patient has history of chronic bronchitis and was previously followed by Pulmonary. She states that now she follows with her PCP for this issue.
Medical History
Past Medical History
Past Medical History: Reports Other
Additional Past Medical History:
CKD 3a at baseline (1.1-1.2 mg/DL)
Left renal atrophy
ANGELICA (70% left, 50% right)
Recurrent asthma exacerbation
Generalized atherosclerosis and PAD
Septic shock with MOSF with transient HD needs, PEA, bilateral lower extremity BKA, left hand/forearm amputation 2015
Bilateral adrenal hyperplasia
Paroxysmal AF on Eliquis
Chronic pain, narcotic dependent
HX CVA
Depression
HX urosepsis 2015
Ch HF pEF
Longstanding hypertension with suspected secondary component, never identified
Calcium oxalate nephrolithiasis
Past Surgical History: Reports Other
Additional Past Surgical History:
bilateral lower extremity BKA, left hand/forearm amputation 2015
Social History
Tobacco: Non-smoker
Alcohol: Former
Drug: None
Living: Penit[facility]iary
Family History
Family History: Other (Father had heart disease, mother had abdominal aortic aneurysm and also had depression. Paternal grandmother had depression)
Allergies / Home Medications
Allergies reflects when Allergies were last updated in [employer].
Home Medications with original date entered in [employer]
Allergy/Medication List:
Allergies
Allergy/AdvReac Type Severity Reaction Status Date / Time
clarithromycin (From Biaxin) Allergy Rash Verified 08/09/25 14:38
ipratropium (From Atrovent) Allergy Rash Verified 08/09/25 14:38
ipratropium bromide (From Allergy Rash; Verified 08/09/25 14:38
Atrovent) added 2014
but has
tolerated
as part of
duoneb
since
ofloxacin (From Floxin) Allergy Rash Verified 08/09/25 14:38
shellfish derived Allergy Rash Verified 08/09/25 14:38
Home Medications
albuterol sulfate 90 mcg/actuation aerosol inhaler 1 puff inhalation R Q4HPRN PRN sob 06/29/22
amitriptyline 10 mg tablet 10 mg PO DAILY@2100 Mental Health/Anxiety 06/29/22
docusate sodium 100 mg capsule 200 mg PO DAILY stool softener 06/29/22
duloxetine 60 mg capsule,delayed release 90 mg PO DAILY@0900 Mental Health/Anxiety 06/29/22
ferrous sulfate 325 mg (65 mg iron) tablet 325 mg PO HS Supplement 06/29/22
gabapentin 100 mg capsule 100 mg PO DAILY Pain 06/29/22
gabapentin 300 mg capsule 300 mg PO DAILY@1600 Pain 06/29/22
lactulose 10 gram/15 mL oral solution 30 ml PO HSPRN PRN constipation 06/29/22
lorazepam 0.5 mg tablet 0.5 mg PO DAILY@2100 Mental Health/Anxiety 06/29/22
morphine 15 mg tablet,extended release 15 mg PO Q12H Pain 06/29/22
pantoprazole 40 mg tablet,delayed release 40 mg PO DAILY Gastrointestinal Issue 06/29/22
trazodone 50 mg tablet 50 mg PO HS sleep 06/29/22
ergocalciferol (vitamin D2) 1,250 mcg (50,000 unit) capsule 1,250 mcg PO FR@0800 Supplement 10/13/22
nitroglycerin 0.4 mg sublingual tablet 0.4 mg sublingual [id number] PRN acute angina 10/13/22
oxycodone 5 mg tablet 5 mg PO Q6HPRN PRN severe pain 11/22/22
oqwolyiivp-gqzvcxvpsawfe-irqgfrfi 50 mg-300 mg-40 mg capsule 2 cap PO BID@0900,1700 headaches 07/04/23
cyanocobalamin (vitamin B-12) 500 mcg tablet 1,000 mcg PO DAILY Supplement 07/04/23
prazosin 1 mg capsule 1 mg PO QPM Blood Pressure 07/04/23
apixaban 5 mg tablet (Eliquis) 5 mg PO BID Blood Clot Prevention/Tx 11/09/23
empagliflozin 10 mg tablet (Jardiance) 10 mg PO DAILY Diabetes 11/09/23
gabapentin 600 mg tablet 600 mg PO HS Pain 11/09/23
ipratropium 0.5 mg-albuterol 3 mg (2.5 mg base)/3 mL nebulization soln 3 ml inhalation R Q4HPRN PRN SOB, cough 11/09/23
loratadine 10 mg tablet 10 mg PO DAILY Allergies 11/09/23
ondansetron 4 mg disintegrating tablet 4 mg PO Q4HPRN PRN nausea/vomiting 11/09/23
polyethylene glycol 3350 17 gram oral powder packet 17 g PO DAILY Constipation 11/09/23
rosuvastatin 20 mg tablet 20 mg PO DAILY High Cholesterol 11/09/23
clonidine 0.1 mg/24 hr weekly transdermal patch 0.1 mg transdermal Q7D #4 ea 11/12/23
sucralfate 100 mg/mL oral suspension (Carafate) 10 ml PO AC gastritis #414 mL 06/07/24
amlodipine 10 mg tablet (Norvasc) 10 mg PO DAILY 08/09/25
clonidine HCl 0.1 mg tablet 0.1 mg PO DAILY PRN hypertension urgency 08/09/25
fluticasone 232 mcg-salmeterol 14 mcg/actuation breath activated powdr 1 inh inhalation BID 08/09/25
furosemide 20 mg tablet 20 mg PO DAILY 08/09/25
hydralazine 10 mg tablet 20 mg PO DAILY 08/09/25
hydralazine 10 mg tablet 50 mg PO DAILY@2100 08/09/25
lorazepam 1 mg tablet (Ativan) 1 mg PO DAILY 08/09/25
metoprolol succinate 50 mg capsule sprinkle, ext. release 24 hr 50 mg PO DAILY 08/09/25
Review of Systems
-
History Source: Patient
A 12 point ROS was completed and negative except as noted: Yes
Constitutional: Reports Fatigue and Chills; Denies Fever
EENT: Denies Sore Throat
Respiratory: Reports Cough and Trouble Breathing; Denies Hemoptysis
Cardiac: Denies Chest Pain or Palpitations
Abdomen/GI: Reports Anorexia; Denies Abdominal Pain, Nausea, Vomiting or Diarrhea
: Denies Dysuria, Frequency or Flank Pain
Musculoskeletal: Denies Joint Pain or Edema
Neurological: Denies Dizzy or Headache
Psych: Denies Depression or Anxiety
Physical Exam
Vital Signs
Vital Signs
Temp Pulse Resp BP Pulse Ox
98.6 F 76 18 165/94 91
08/09/25 14:37 08/09/25 21:45 08/09/25 21:45 08/09/25 22:00 08/09/25 21:45
Physical Exam
General: Other (64y F in no acute distress.)
HEENT: Moist mucous membranes and PERRLA
Respiratory: Other (Coarse rhonchi at the bases - L > R. Few scattered squeaks and wheezes. )
Cardiac: S1/S2 and Irregular Rhythm; No Murmur
GI: Soft, Non Tender, Non Distended and Normal Bowel Sounds
Musculoskeletal: Other (s/p bilateral LE amputations and LUE amputation (2016))
Neuro: AO x 3
Laboratory Results
-
08/09/25 14:56
08/09/25 14:56
Laboratory Results
Total Bilirubin 0.2 mg/dl (0.2-1.3) 08/09/25 14:56
AST 17 U/L (14-36) 08/09/25 14:56
ALT 12 U/L (0-35) 08/09/25 14:56
Alkaline Phosphatase 115 U/L (38-126) 08/09/25 14:56
Impression/Plan
-
A/P: Patient is a 64y F with PMH significant for hypertension, DM-II and chronic bronchitis who presents to ED complaining of cough and SOB x 1 week.
Acute on Chronic Bronchitis
Acute Hypoxemic respiratory Insufficiency secondary to the above
- Admit for further evaluation and treatment.
- CXR with vague increased opacity at the bases 'possible atypical infection'.
- Hypoxemic in the ED to 88% on room air - stable on NC O2 supplementation.
- Coarse breath sounds on exam at the bases as well.
- Abx with ceftriaxone and doxycycline.
- Supportive care with nebs, mucolytics, chest PT, etc.
- Follow for clinical improvement and wean O2 as able.
Multidrug resistant Hypertension
- Stable at presents with very well-controlled BP.
- Continued usual home med regimen with holding parameters.
DM-II
- Stable. Continue Jardiance.
- Follow glucose and cover with SSI as needed.
- Update A1C.
CKD III
- Stable. Renal function is at / near known baseline.
Paroxysmal Atrial Fibrillation
- Stable. Continue metoprolol, Eliquis, etc.
s/p Multiple Limb Amputations (secondary to septic shock)
Chronic Pain Syndrome
Chronic Opioid Dependence
- Stable. Continue usual home med regimen without changes.
Anxiety / Depression
- Stable. Continue usual med regimen.
DVT Prophylaxis: On Eliquis
Code Status: Full
[2025-08-10] MEDS: ROXICODONE 5 MG PO ×2 (01:49→17:27)
[2025-08-10] MEDS: ELIQUIS 5 MG PO ×3 (01:49→20:50)
[2025-08-10] MEDS: DESYREL 50 MG PO (01:50)
[2025-08-10] MEDS: ATIVAN 1 MG PO (05:24)
[2025-08-10] MEDS: TYLENOL 650 MG PO (05:25)
[2025-08-10 06:18] LABS: Hematocrit 38.1 % (37.0-47.0); Hemoglobin 12.4 g/dL (12.0-16.0); Mean Corp Hgb Conc. 32.5 g/dL (33.0-37.0); Mean Corpuscular Volume 98.4 fL (81.0-99.0); Platelet Count 192 10^3/uL (130-400); Red Cell Dist. Width 12.0 % (11.5-14.5)
[2025-08-10 06:44] LABS: Blood Urea Nitrogen 35 mg/dl (7-17); Calcium 8.7 mg/dl (8.4-10.2); Carbon Dioxide 25 mmol/L (22-30); Chloride 103 mmol/L (98-107); Estimated Creatinine Clearance 39 ml/min; Glucose 143 mg/dl (70-99); Sodium 137 mmol/L (135-145); eGFR 45.63
[2025-08-10 08:28] LABS: Glycohemoglobin (HgbA1c) 5.6 % (4.0-5.9)
--- NOTE | 2025-08-10 08:38 | W.PN.HOSP.TC ---
Addendum entered and electronically signed by Maicol Rob MD 08/12/25 10:08:
Correction--> No Diabetes Mellitus.
Original Note:
Today's Communication/Plan
-
IV antibiotics. IV steroids. Bronchodilator
Assessment / Plan
Assessment / Plan
Physical exam:
General: Acute on chronically ill
HEENT: Normocephalic, Atraumatic and Moist Mucous Membranes
Respiratory: Bilateral wheezes and rhonchi; Negative rales
Cardiac: Regular Rhythm and S1/S2
GI: Soft, Nontender and Nondistended
Musculoskeletal: Bilateral BKA or AKA
Neuro: Awake, Alert and Oriented, no neurological deficit
Psych: Calm
A/P:
Acute on Chronic Bronchitis and asthma exacerbation
Acute Hypoxemic respiratory Insufficiency secondary to the above
- Admit for further evaluation and treatment.
- CXR with vague increased opacity at the bases 'possible atypical infection'.
- Hypoxemic in the ED to 88% on room air - stable on NC O2 supplementation.
- Coarse breath sounds on exam at the bases as well.
- Abx with ceftriaxone and doxycycline.
- Supportive care with nebs, mucolytics, chest PT, etc.
- Follow for clinical improvement and wean O2 as able.
- Continue IV dexamethasone
Multidrug resistant Hypertension
- Stable at presents with very well-controlled BP.
- Continued usual home med regimen with holding parameters.
DM-II
- Stable. Continue Jardiance.
- Follow glucose and cover with SSI as needed.
- Update A1C.
CKD III
- Stable. Renal function is at / near known baseline.
Paroxysmal Atrial Fibrillation
- Stable. Continue metoprolol, Eliquis, etc.
s/p Multiple Limb Amputations (secondary to septic shock)
Chronic Pain Syndrome
Chronic Opioid Dependence
- Stable. Continue usual home med regimen without changes.
Anxiety / Depression
- Stable. Continue usual med regimen.
DVT Prophylaxis: On Eliquis
Code Status: Full
Anticipated Discharge: > 48 hours
Subjective/Interval History
-
Date of Service: August 10, 2025
Patient with cough and shortness of breath. Cough with greenish sputum production. Complains of having chills
Objective Data
-
Labs:
Laboratory Results
08/10/25
06:03
WBC 7.7
Hgb 12.4
Hct 38.1
Plt Count 192
Sodium 137
Potassium
Chloride 103
Carbon Dioxide 25
BUN 35 H
Creatinine 1.3 H
Glucose 143 H
Calcium 8.7
Vital Signs:
Vital Signs
Temp Pulse Resp BP Pulse Ox
98.2 F 72 17 95/68 99
08/10/25 06:04 08/10/25 06:00 08/10/25 06:00 08/10/25 06:00 08/10/25 06:00
[2025-08-10] MEDS: PULMICORT 0.5 MG INH ×2 (08:48→20:09)
[2025-08-10] MEDS: DUONEB 3 ML INH ×4 (08:48→20:09)
[2025-08-10] MEDS: CARAFATE SUSPENSION 1 GM PO ×3 (09:30→18:37)
[2025-08-10] MEDS: CRESTOR 20 MG PO (09:31)
[2025-08-10] MEDS: FARXIGA 10 MG PO (09:31)
[2025-08-10] MEDS: CYMBALTA DELAYED RELEASE 90 MG PO (09:31)
[2025-08-10] MEDS: MS CONTIN (EXTENDED RELEASE) 15 MG PO ×2 (09:31→20:46)
[2025-08-10] MEDS: APRESOLINE 20 MG PO (09:32)
[2025-08-10] MEDS: VIBRAMYCIN 100 MG PO ×2 (09:33→20:53)
[2025-08-10 09:34] LABS: Glucose - Point of Care 131 mg/dl (70-99)
[2025-08-10] MEDS: PROTONIX 40 MG PO (09:34)
[2025-08-10] MEDS: MUCINEX 600 MG PO ×2 (09:34→20:49)
[2025-08-10] MEDS: COLACE 200 MG PO (09:34)
[2025-08-10] MEDS: CLARITIN 10 MG PO (09:34)
[2025-08-10] MEDS: TOPROL XL 50 MG PO (09:35)
[2025-08-10] MEDS: NORVASC 10 MG PO (09:35)
[2025-08-10] MEDS: NEURONTIN 100 MG PO (09:36)
[2025-08-10] MEDS: MIRALAX PO (10:05)
[2025-08-10 12:12] LABS: Glucose - Point of Care 132 mg/dl (70-99)
[2025-08-10] MEDS: FIORICET 1 TAB PO (13:04)
[2025-08-10] MEDS: DECADRON 4 MG IV ×2 (13:04→17:27)
[2025-08-10] MEDS: NEURONTIN 300 MG PO (17:26)
[2025-08-10 18:38] LABS: Glucose - Point of Care 157 mg/dl (70-99)
[2025-08-10] MEDS: MINIPRESS PO (20:50)
[2025-08-10] MEDS: APRESOLINE 50 MG PO (20:51)
[2025-08-10] MEDS: STERILE WATER FOR INJECTION 10 ML IV (20:53)
[2025-08-10] MEDS: ROCEPHIN 1000 MG IV (20:53)
[2025-08-10 20:58] LABS: Glucose - Point of Care 206 mg/dl (70-99)
[2025-08-10] MEDS: ELAVIL 10 MG PO (21:03)
[2025-08-10] MEDS: ATIVAN 0.5 MG PO (21:57)
[2025-08-10] MEDS: DESYREL PO (22:00)
[2025-08-10] MEDS: NEURONTIN PO (22:00)
[2025-08-11] VITALS (14 sets, daily range): BP systolic 117–153; BP diastolic 60–84; PULSE 84; BMI 27.1
[2025-08-11] MEDS: DECADRON 4 MG IV ×3 (02:34→16:57)
[2025-08-11] MEDS: ROXICODONE 5 MG PO ×2 (02:40→13:59)
[2025-08-11 05:50] LABS: Hematocrit 39.4 % (37.0-47.0); Hemoglobin 12.3 g/dL (12.0-16.0)
[2025-08-11 06:17] LABS: Blood Urea Nitrogen 36 mg/dl (7-17); Calcium 9.2 mg/dl (8.4-10.2); Carbon Dioxide 25 mmol/L (22-30); Chloride 102 mmol/L (98-107); Estimated Creatinine Clearance 42 ml/min; Glucose 130 mg/dl (70-99); Potassium 4.5 mmol/L (3.5-5.1); Sodium 137 mmol/L (135-145); eGFR 50.23
[2025-08-11] MEDS: CARAFATE SUSPENSION 1 GM PO ×3 (08:11→16:55)
[2025-08-11] MEDS: VIBRAMYCIN 100 MG PO ×2 (08:12→19:43)
[2025-08-11] MEDS: MUCINEX 600 MG PO ×2 (08:12→19:43)
[2025-08-11] MEDS: APRESOLINE 20 MG PO (08:12)
[2025-08-11] MEDS: DUONEB 3 ML INH ×4 (08:12→19:20)
[2025-08-11] MEDS: ELIQUIS 5 MG PO ×2 (08:12→19:42)
[2025-08-11] MEDS: FIORICET 1 TAB PO ×2 (08:13→10:13)
[2025-08-11] MEDS: NORVASC 10 MG PO (08:13)
[2025-08-11] MEDS: COLACE 200 MG PO (08:14)
[2025-08-11] MEDS: TOPROL XL 50 MG PO (08:14)
[2025-08-11] MEDS: PROTONIX 40 MG PO (08:14)
[2025-08-11] MEDS: CLARITIN 10 MG PO (08:14)
[2025-08-11] MEDS: ATIVAN 1 MG PO (08:15)
[2025-08-11] MEDS: NEURONTIN 100 MG PO (08:15)
[2025-08-11] MEDS: PULMICORT 0.5 MG INH ×2 (08:16→19:27)
[2025-08-11] MEDS: MIRALAX PO (08:18)
[2025-08-11 08:50] LABS: Glucose - Point of Care 134 mg/dl (70-99)
[2025-08-11] MEDS: MS CONTIN (EXTENDED RELEASE) 15 MG PO ×2 (09:21→19:43)
[2025-08-11] MEDS: CYMBALTA DELAYED RELEASE 90 MG PO (10:13)
[2025-08-11] MEDS: FARXIGA 10 MG PO (10:14)
[2025-08-11] MEDS: CRESTOR 20 MG PO (10:14)
--- NOTE | 2025-08-11 10:33 | W.PN.HOSP.TC ---
Addendum entered and electronically signed by Maicol Rob MD 08/12/25 10:08:
Correction--> No Diabetes Mellitus.
Original Note:
Today's Communication/Plan
-
IV steroids. Antibiotics. Echocardiogram
Assessment / Plan
Assessment / Plan
Physical exam:
General: Acute on chronically ill
HEENT: Normocephalic, Atraumatic and Moist Mucous Membranes
Respiratory: Bilateral wheezes and rhonchi but decreasing overall; Negative rales
Cardiac: Regular Rhythm and S1/S2
GI: Soft, Nontender and Nondistended
Musculoskeletal: Bilateral lower extremity and left upper extremity amputations
Neuro: Awake, Alert and Oriented, no neurological deficit
Psych: Calm
A/P:
Community-acquired pneumonia:
Continue antibiotics IV Rocephin and doxycycline
Seen chest x-ray with interstitial pattern
Check sputum culture
Check Legionella and strep antigen
Acute hypoxic respiratory sufficiency:
Wean oxygen as able
Incentive spirometry
Obtain echocardiogram to rule out cardiac component and moderately elevated BNP
Acute asthma exacerbation:
Continue IV steroids
Continue bronchodilators
Paroxysmal A-fib:
Continue rate control, beta-sina
Continue anticoagulant, Eliquis
Chronic pain with chronic opiate dependence/multiple limb amputations due to septic shock in the past:
Continue chronic narcotic pain medication
Hypertension (known to be multidrug-resistant):
Blood pressure stable
Continue home antihypertensive regimen
Diabetes mellitus type 2:
Continue insulin sliding scale
Continue oral hypoglycemic
CKD:
Avoid nephrotoxic
Monitor renal function in a.m.
DVT prophylaxis:
Eliquis
CODE STATUS:
Full code
Total time spent on today's encounter was 52 minutes which included time spent in counseling the patient/family regarding diagnosis and treatment plan as listed above, goals of care, and symptom management. Case was discussed with nursing staff,
specialists, and care coordinators/case management. All labs and imaging personally reviewed by me. Remainder the time spent in detailed review of previous records, lab data, imaging, and other medical provider documentation.
Anticipated Discharge: > 48 hours
Subjective/Interval History
-
Date of Service: August 11, 2025
She feels better overall today, less cough and shortness of breath. Afebrile
Objective Data
-
Labs:
Laboratory Results
08/11/25
05:18
Hgb 12.3
Hct 39.4
Sodium 137
Potassium 4.5
Chloride 102
Carbon Dioxide 25
BUN 36 H
Creatinine 1.2 H
Glucose 130 H
Calcium 9.2
Vital Signs:
Vital Signs
Temp Pulse Resp BP Pulse Ox
97.8 F 85 16 118/64 95
08/11/25 02:53 08/11/25 08:16 08/11/25 08:16 08/11/25 02:53 08/11/25 09:59
[2025-08-11 11:52] LABS: Glucose - Point of Care 127 mg/dl (70-99)
--- NOTE | 2025-08-11 15:30 | PTCARENOTE ---
Patient arrived from ED via stretcher. VSS. Patient states she has chronic, phantom limb pain due to multiple limb amputations. Patient admnistered PRN oxy at 1339. Scheduled MS Contin BID. Purewick in place. Pericare performed prior to placement.
Dual skin check completed. Patient oriented to room. Bed in lowest position. Call roberts and personal belongings within reach.
[2025-08-11] MEDS: NEURONTIN 300 MG PO (16:55)
[2025-08-11 17:02] LABS: Glucose - Point of Care 145 mg/dl (70-99)
[2025-08-11] MEDS: MINIPRESS 1 MG PO (17:03)
[2025-08-11 17:50] LABS: Glucose - Point of Care 148 mg/dl (70-99)
[2025-08-11] MEDS: FIORICET 2 TAB PO (19:43)
[2025-08-11] MEDS: ROCEPHIN 1000 MG IV (19:43)
[2025-08-11] MEDS: STERILE WATER FOR INJECTION 10 ML IV (19:44)
[2025-08-11 21:21] LABS: Glucose - Point of Care 176 mg/dl (70-99)
[2025-08-11] MEDS: NEURONTIN 600 MG PO (21:57)
[2025-08-11] MEDS: APRESOLINE 50 MG PO (21:57)
[2025-08-11] MEDS: DESYREL 50 MG PO (22:01)
[2025-08-11] MEDS: ATIVAN 0.5 MG PO (22:01)
[2025-08-11] MEDS: ELAVIL 10 MG PO (22:02)
[2025-08-12] VITALS (7 sets, daily range): BP systolic 101–140; BP diastolic 50–78; BMI 27.3
[2025-08-12] MEDS: DECADRON 4 MG IV ×3 (01:51→20:27)
[2025-08-12] MEDS: ROXICODONE 5 MG PO ×2 (01:53→12:32)
[2025-08-12 06:57] LABS: Hematocrit 40.7 % (37.0-47.0); Hemoglobin 13.3 g/dL (12.0-16.0)
[2025-08-12 07:29] LABS: Blood Urea Nitrogen 38 mg/dl (7-17); Carbon Dioxide 25 mmol/L (22-30); Chloride 104 mmol/L (98-107); Estimated Creatinine Clearance 42 ml/min; Glucose 134 mg/dl (70-99); Sodium 138 mmol/L (135-145); eGFR 50.23
[2025-08-12 07:39] LABS: Calcium 9.3 mg/dl (8.4-10.2); Potassium 4.7 mmol/L (3.5-5.1)
[2025-08-12] MEDS: DUONEB 3 ML INH ×4 (07:40→20:50)
[2025-08-12] MEDS: PULMICORT 0.5 MG INH ×2 (07:40→20:50)
[2025-08-12] MEDS: ATIVAN 1 MG PO (07:55)
[2025-08-12] MEDS: MS CONTIN (EXTENDED RELEASE) 15 MG PO ×2 (07:55→20:29)
[2025-08-12] MEDS: CARAFATE SUSPENSION 1 GM PO ×3 (07:55→16:27)
[2025-08-12] MEDS: NEURONTIN 100 MG PO (07:56)
[2025-08-12] MEDS: CRESTOR 20 MG PO (07:56)
[2025-08-12] MEDS: FARXIGA 10 MG PO (07:56)
[2025-08-12] MEDS: CLARITIN 10 MG PO (07:56)
[2025-08-12] MEDS: MUCINEX 600 MG PO ×2 (07:56→20:29)
[2025-08-12] MEDS: VIBRAMYCIN 100 MG PO ×2 (07:57→20:29)
[2025-08-12] MEDS: FIORICET 2 TAB PO ×2 (07:57→18:23)
[2025-08-12] MEDS: PROTONIX 40 MG PO (07:58)
[2025-08-12] MEDS: ELIQUIS 5 MG PO ×2 (07:58→20:28)
[2025-08-12] MEDS: MIRALAX PO (07:58)
[2025-08-12] MEDS: APRESOLINE 20 MG PO (08:05)
[2025-08-12] MEDS: NORVASC 10 MG PO (08:06)
[2025-08-12] MEDS: TOPROL XL 50 MG PO (08:06)
[2025-08-12] MEDS: COLACE PO (08:09)
[2025-08-12 08:15] LABS: Glucose - Point of Care 138 mg/dl (70-99)
[2025-08-12] MEDS: CYMBALTA DELAYED RELEASE 90 MG PO (09:33)
--- NOTE | 2025-08-12 11:03 | W.PN.HOSP.TC ---
Today's Communication/Plan
-
Tapering course of steroids. Antibiotic
Assessment / Plan
Assessment / Plan
Physical exam:
General: Acute on chronically ill
HEENT: Normocephalic, Atraumatic and Moist Mucous Membranes
Respiratory: Bilateral wheezes and rhonchi but decreasing overall; Negative rales
Cardiac: Regular Rhythm and S1/S2
GI: Soft, Nontender and Nondistended
Musculoskeletal: Bilateral lower extremity and left upper extremity amputations
Neuro: Awake, Alert and Oriented, no neurological deficit
Psych: Calm
A/P:
Community-acquired pneumonia:
Continue antibiotics IV Rocephin and doxycycline
Seen chest x-ray with interstitial pattern
Check sputum culture
Check Legionella and strep antigen
Acute hypoxic respiratory sufficiency:
Wean oxygen as able
Incentive spirometry
Obtain echocardiogram to rule out cardiac component and moderately elevated BNP
Acute asthma exacerbation:
Continue IV steroids but will start to taper from 4 mg every 8 hours to 4 mg every 12 hours today.
She was on insulin sliding scale while on steroids but will discontinue since hemoglobin A1c 5.6 and blood sugar stable as well (she did have hemoglobin A1c at 5.9 in the past).
Continue bronchodilators
No evidence of diabetes mellitus (ruled out DM).
Paroxysmal A-fib:
Continue rate control, beta-sina
Continue anticoagulant, Eliquis
Chronic pain with chronic opiate dependence/multiple limb amputations due to septic shock in the past:
Continue chronic narcotic pain medication
Hypertension (known to be multidrug-resistant):
Blood pressure stable
Continue home antihypertensive regimen
CKD:
Avoid nephrotoxic
Monitor renal function in a.m.
DVT prophylaxis:
Eliquis
CODE STATUS:
Full code
Total time spent on today's encounter was 35 minutes which included time spent in counseling the patient/family regarding diagnosis and treatment plan as listed above, goals of care, and symptom management. Case was discussed with nursing staff,
specialists, and care coordinators/case management. All labs and imaging personally reviewed by me. Remainder the time spent in detailed review of previous records, lab data, imaging, and other medical provider documentation.
Anticipated Discharge: 24 - 48 hours
Subjective/Interval History
-
Date of Service: August 12, 2025
Patient with less cough and shortness of breath today. Afebrile. No chest pain
Objective Data
-
Labs:
Laboratory Results
08/12/25
06:40
Hgb 13.3
Hct 40.7
Sodium 138
Potassium 4.7
Chloride 104
Carbon Dioxide 25
BUN 38 H
Creatinine 1.2 H
Glucose 134 H
Calcium 9.3
Vital Signs:
Vital Signs
Temp Pulse Resp BP Pulse Ox
98.0 F 97 16 129/65 93
08/12/25 07:15 08/12/25 08:06 08/12/25 07:41 08/12/25 08:06 08/12/25 07:15
I&O
08/11/25 08/12/25 08/13/25
06:59 06:59 06:59
Intake Total 480 / 480
Output Total 1450 / 1450
Balance -970 / -970
--- NOTE | 2025-08-12 11:10 | CM ---
Patient seen bedside, initial assessment completed. Patient is a 64y F with PMH significant for multiple amputations secondary to sepsis, hypertension, CKD and chronic bronchitis who presents to ED complaining of cough and SOB x 1 week.
Patient resides at [facility] in assisted living. Patient uses a motorized power chair to get around. Patient confirmed she is able to dress and feed herself. She is assisted w/ bathing and gets her commode emptied and cleaned by the staff. Patient
has a nebulizer machine as well. VN hx. Patient has been to [facility] and [facility] in the past. No inpatient rehabs since.
PCP: Mahesh Amanda
Pharmacy: [facility]. Patient stated [facility] no longer uses, now uses [facility]
PT assessed, patient close to baseline and is safe to return to [facility] w/ no PT needs
Plan: Return to [facility] when medically stable
[2025-08-12] MEDS: NEURONTIN 300 MG PO (16:27)
[2025-08-12] MEDS: TYLENOL 650 MG PO (16:30)
[2025-08-12] MEDS: MINIPRESS 1 MG PO (18:25)
[2025-08-12] MEDS: ATIVAN 0.5 MG PO (20:28)
[2025-08-12] MEDS: APRESOLINE 50 MG PO (20:29)
[2025-08-12] MEDS: ELAVIL 10 MG PO (20:29)
[2025-08-12] MEDS: ROCEPHIN 1000 MG IV (20:29)
[2025-08-12] MEDS: STERILE WATER FOR INJECTION 10 ML IV (20:29)
[2025-08-12] MEDS: NEURONTIN 600 MG PO (21:53)
[2025-08-12] MEDS: DESYREL 50 MG PO (21:57)
[2025-08-13] MEDS: ROXICODONE 5 MG PO ×4 (01:17→20:16)
[2025-08-13 03:33] VITALS: BP 133/64
[2025-08-13] MEDS: TYLENOL 650 MG PO (04:02)
[2025-08-13 07:19] VITALS: BP 140/67
[2025-08-13] MEDS: DUONEB 3 ML INH ×4 (07:29→19:56)
[2025-08-13] MEDS: PULMICORT 0.5 MG INH ×2 (07:29→19:55)
[2025-08-13] MEDS: APRESOLINE 20 MG PO (07:43)
[2025-08-13] MEDS: TOPROL XL 50 MG PO (07:43)
[2025-08-13] MEDS: ELIQUIS 5 MG PO ×2 (07:43→20:17)
[2025-08-13] MEDS: FARXIGA 10 MG PO (07:43)
[2025-08-13] MEDS: ATIVAN 1 MG PO (07:43)
[2025-08-13] MEDS: CRESTOR 20 MG PO (07:43)
[2025-08-13] MEDS: CARAFATE SUSPENSION 1 GM PO ×3 (07:43→15:37)
[2025-08-13] MEDS: FIORICET 2 TAB PO ×2 (07:44→20:17)
[2025-08-13] MEDS: VIBRAMYCIN 100 MG PO ×2 (07:44→20:17)
[2025-08-13] MEDS: COLACE 200 MG PO (07:44)
[2025-08-13] MEDS: NORVASC 10 MG PO (07:44)
[2025-08-13] MEDS: MUCINEX 600 MG PO ×2 (07:44→20:17)
[2025-08-13] MEDS: MS CONTIN (EXTENDED RELEASE) 15 MG PO ×2 (07:44→20:16)
[2025-08-13] MEDS: PROTONIX 40 MG PO (07:44)
[2025-08-13] MEDS: CLARITIN 10 MG PO (07:44)
[2025-08-13] MEDS: NEURONTIN 100 MG PO (07:44)
[2025-08-13] MEDS: DECADRON 4 MG IV ×2 (07:45→20:18)
[2025-08-13] MEDS: MIRALAX PO (07:45)
[2025-08-13] MEDS: CYMBALTA DELAYED RELEASE 90 MG PO (09:08)
[2025-08-13 11:27] VITALS: BP 99/49
--- NOTE | 2025-08-13 11:57 | W.PN.HOSP.TC ---
Addendum entered and electronically signed by Maicol Rob MD 08/13/25 17:05:
Updated daughter over the phone today
Original Note:
Today's Communication/Plan
-
Antibiotics. Steroids.
Assessment / Plan
Assessment / Plan
Physical exam:
General: Acute on chronically ill
HEENT: Normocephalic, Atraumatic and Moist Mucous Membranes
Respiratory: No wheezes and some rhonchi; Negative rales
Cardiac: Regular Rhythm and S1/S2
GI: Soft, Nontender and Nondistended
Musculoskeletal: Bilateral lower extremity and left upper extremity amputations
Neuro: Awake, Alert and Oriented, no neurological deficit
Psych: Calm
A/P:
Community-acquired pneumonia:
Continue antibiotics but switch to oral cefdinir and continue doxycycline.
Seen chest x-ray with interstitial pattern
Check sputum culture
Check Legionella and strep antigen
Acute hypoxic respiratory sufficiency:
Wean oxygen as able
Incentive spirometry
Obtain echocardiogram to rule out cardiac component and moderately elevated BNP
Acute asthma exacerbation:
Continue IV steroids dexamethasone 4 mg every 12 hours today and will switch to oral tomorrow.
She was on insulin sliding scale while on steroids but will discontinue since hemoglobin A1c 5.6 and blood sugar stable as well (she did have hemoglobin A1c at 5.9 in the past).
Continue bronchodilators
No evidence of diabetes mellitus (ruled out DM).
Paroxysmal A-fib:
Continue rate control, beta-sina
Continue anticoagulant, Eliquis
Chronic pain with chronic opiate dependence/multiple limb amputations due to septic shock in the past:
Continue chronic narcotic pain medication
Hypertension (known to be multidrug-resistant):
Blood pressure stable
Continue home antihypertensive regimen
CKD:
Avoid nephrotoxic
Monitor renal function in a.m.
DVT prophylaxis:
Eliquis
CODE STATUS:
Full code
Total time spent on today's encounter was 35 minutes which included time spent in counseling the patient/family regarding diagnosis and treatment plan as listed above, goals of care, and symptom management. Case was discussed with nursing staff,
specialists, and care coordinators/case management. All labs and imaging personally reviewed by me. Remainder the time spent in detailed review of previous records, lab data, imaging, and other medical provider documentation.
Anticipated Discharge: Within 24 hours
Subjective/Interval History
-
Date of Service: August 13, 2025
Patient feels better overall, less cough and shortness of breath. Afebrile. Does not feel ready to go home yet.
Objective Data
-
Vital Signs:
Vital Signs
Temp Pulse Resp BP Pulse Ox
98.6 F 74 16 99/49 92
08/13/25 11:27 08/13/25 11:27 08/13/25 11:27 08/13/25 11:27 08/13/25 11:27
I&O
08/12/25 08/13/25 08/14/25
06:59 06:59 06:59
Intake Total 480 / 480 490 / 490
Output Total 1450 / 1450 850 / 850 900 / 900
Balance -970 / -970 -360 / -360 -900 / -900
[2025-08-13 15:06] VITALS: BP 121/59
[2025-08-13] MEDS: NEURONTIN 300 MG PO (15:37)
[2025-08-13] MEDS: MINIPRESS 1 MG PO (17:12)
[2025-08-13 19:30] VITALS: BP 123/65
[2025-08-13] MEDS: ELAVIL 10 MG PO (20:17)
[2025-08-13] MEDS: ATIVAN 0.5 MG PO (20:17)
[2025-08-13] MEDS: OMNICEF 300 MG PO (20:17)
[2025-08-13] MEDS: APRESOLINE 50 MG PO (20:17)
[2025-08-13] MEDS: NEURONTIN 600 MG PO (21:49)
[2025-08-13] MEDS: DESYREL 50 MG PO (21:49)
[2025-08-13 23:11] VITALS: BP 105/58
[2025-08-14] MEDS: ROXICODONE 5 MG PO ×3 (02:55→20:43)
[2025-08-14 03:29] VITALS: BP 137/68
[2025-08-14 07:05] VITALS: BP 145/72
[2025-08-14] MEDS: DUONEB 3 ML INH (07:26)
[2025-08-14] MEDS: OMNICEF 300 MG PO ×2 (08:20→20:43)
[2025-08-14] MEDS: CARAFATE SUSPENSION 1 GM PO ×3 (08:20→16:15)
[2025-08-14] MEDS: PROTONIX 40 MG PO (08:20)
[2025-08-14] MEDS: VIBRAMYCIN 100 MG PO ×2 (08:21→20:43)
[2025-08-14] MEDS: ELIQUIS 5 MG PO ×2 (08:21→20:42)
[2025-08-14] MEDS: CRESTOR 20 MG PO (08:21)
[2025-08-14] MEDS: ATIVAN 1 MG PO (08:21)
[2025-08-14] MEDS: TOPROL XL 50 MG PO (08:21)
[2025-08-14] MEDS: APRESOLINE 20 MG PO (08:21)
[2025-08-14] MEDS: FIORICET 2 TAB PO ×2 (08:21→19:13)
[2025-08-14] MEDS: FARXIGA 10 MG PO (08:21)
[2025-08-14] MEDS: COLACE 200 MG PO (08:21)
[2025-08-14] MEDS: MUCINEX 600 MG PO ×2 (08:21→20:42)
[2025-08-14] MEDS: MIRALAX 17 GRAMS PO (08:22)
[2025-08-14] MEDS: MS CONTIN (EXTENDED RELEASE) 15 MG PO ×2 (08:22→20:42)
[2025-08-14] MEDS: CLARITIN 10 MG PO (08:22)
[2025-08-14] MEDS: NORVASC 10 MG PO (08:22)
[2025-08-14] MEDS: NEURONTIN 100 MG PO (08:22)
--- NOTE | 2025-08-14 08:50 | W.PN.HOSP.TC ---
Today's Communication/Plan
-
Discharge planning today
Assessment / Plan
Assessment / Plan
Physical exam:
General: Chronically ill
HEENT: Normocephalic, Atraumatic and Moist Mucous Membranes
Respiratory: Clear to auscultation bilaterally. No wheezes and no rhonchi; Negative rales
Cardiac: Regular Rhythm and S1/S2
GI: Soft, Nontender and Nondistended
Musculoskeletal: Bilateral lower extremity and left upper extremity amputations
Neuro: Awake, Alert and Oriented, no neurological deficit
Psych: Calm
A/P:
Community-acquired pneumonia:
Continue antibiotics but switched to oral cefdinir and continue doxycycline since yesterday.
Seen chest x-ray with interstitial pattern
Check sputum culture
Check Legionella and strep antigen
Acute hypoxic respiratory sufficiency:
Wean oxygen as able
Incentive spirometry
Obtained echocardiogram and unremarkable
Acute asthma exacerbation:
Change IV steroids to oral today and continue with tapering course
She was on insulin sliding scale while on steroids but will discontinue since hemoglobin A1c 5.6 and blood sugar stable as well (she did have hemoglobin A1c at 5.9 in the past).
Continue bronchodilators
No evidence of diabetes mellitus (ruled out DM).
Paroxysmal A-fib:
Continue rate control, beta-sina
Continue anticoagulant, Eliquis
Chronic pain with chronic opiate dependence/multiple limb amputations due to septic shock in the past:
Continue chronic narcotic pain medication
Hypertension (known to be multidrug-resistant):
Blood pressure stable
Continue home antihypertensive regimen
CKD:
Avoid nephrotoxic
DVT prophylaxis:
Eliquis
CODE STATUS:
Full code
Total time spent on today's encounter was 35 minutes which included time spent in counseling the patient/family regarding diagnosis and treatment plan as listed above, goals of care, and symptom management. Case was discussed with nursing staff,
specialists, and care coordinators/case management. All labs and imaging personally reviewed by me. Remainder the time spent in detailed review of previous records, lab data, imaging, and other medical provider documentation.
Anticipated Discharge: Today
Subjective/Interval History
-
Date of Service: August 14, 2025
Patient feeling improved. Less cough. No shortness of breath. Afebrile
Objective Data
-
Vital Signs:
Vital Signs
Temp Pulse Resp BP Pulse Ox
98 F 80 14 145/72 96
08/14/25 07:05 08/14/25 07:27 08/14/25 07:27 08/14/25 07:05 08/14/25 07:27
I&O
08/13/25 08/14/25 08/15/25
06:59 06:59 06:59
Intake Total 490 / 490 660 / 660
Output Total 850 / 850 2300 / 2300
Balance -360 / -360 -1640 / -1640
--- NOTE | 2025-08-14 08:51 | W.DCSUMMARY ---
Addendum entered and electronically signed by Maicol Rob MD 08/15/25 14:25:
Actual date of discharge 08/15/2025.
Original Note:
Discharge Summary
Discharge Data
Date of Admission: 08/10/25
Date of Discharge: 08/14/25
Total time spent discharging patient (in min): 32
-
Pending Results: No
Hospital Course
Patient is 64 years old female with multiple comorbidities including CKD, multiple limb amputations after septic shock in the past, CVA, depression, CHF, came into the hospital with shortness of breath and cough and found to have pneumonia and
asthma exacerbation. Patient was treated with IV antibiotic and IV steroids and oxygen supplementation as well as bronchodilators. Patient also had an echocardiogram that shows no changes from prior echo and normal ejection fraction 55 to 60%.
Patient did well rest of hospital stay. We were able to taper the steroids to oral and will continue as outpatient with a short course. Will also able to switch her antibiotics to oral that will be continued as outpatient for a short course as
well. She participated with PT and she is to return to assisted living at [place] today. She is off oxygen on room air and she is hemodynamically stable and afebrile. She feels symptomatically much improved. She will be discharged in relatively
stable condition today.
Discharge duration: 32 minutes
Discharge Plan
-
Patient Disposition: Assisted Living
Discharge Diagnosis/Procedures: Pneumonia. Asthma exacerbation. Acute hypoxic respiratory insufficiency. Chronic pain with chronic opioid dependence. History of multiple limb amputations in the past.
Diet: Low Cholesterol
Activity: As tolerated
Blood Work: Please PCP to order CBC, BMP within 1 week
Referrals:
Mahesh Amanda MD [Family Provider, [facility]] - in less than 1 week
Prescriptions:
New
doxycycline hyclate 100 mg Capsule
100 mg PO Q12 1 Days Qty: 2 0RF
cefdinir 300 mg Capsule
300 mg PO Q12 5 Days Qty: 10 0RF
prednisone 10 mg Tablet
See Rx Instructions .ROUTE .COMPLEX Qty: 30 0RF
Rx Instructions:
Take By Mouth:
40 mg daily x3 days, 30 mg daily x3 days,
20 mg daily x3 days, 10 mg daily x3 days.
Continued
trazodone 50 mg Tablet
50 mg PO HS
lorazepam 0.5 mg Tablet
0.5 mg PO DAILY@2100
amitriptyline 10 mg Tablet
10 mg PO DAILY@2100
pantoprazole 40 mg Tablet,Delayed Release (Dr/Ec)
40 mg PO DAILY
ferrous sulfate 325 mg (65 mg iron) Tablet
325 mg PO HS
gabapentin 300 mg Capsule
300 mg PO DAILY@1600
morphine 15 mg Tablet Extended Release
15 mg PO Q12H
albuterol sulfate 90 mcg/actuation Hfa Aerosol Inhaler
1 puff INHALATION R Q4HPRN PRN (Reason: sob)
duloxetine 60 mg Capsule,Delayed Release(Dr/Ec)
90 mg PO DAILY@0900
docusate sodium 100 mg Capsule
200 mg PO DAILY
gabapentin 100 mg Capsule
100 mg PO DAILY
lactulose 10 gram/15 mL Solution
30 ml PO HSPRN PRN (Reason: constipation)
nitroglycerin 0.4 mg Tablet, Sublingual
0.4 mg SUBLINGUAL [id number] PRN (Reason: acute angina)
ergocalciferol (vitamin D2) 1,250 mcg (50,000 unit) Capsule
1,250 mcg PO FR@0800
oxycodone 5 mg Tablet
5 mg PO Q6HPRN PRN (Reason: severe pain)
cyanocobalamin (vitamin B-12) 500 mcg Tablet
1,000 mcg PO DAILY
qalatebcbs-dicvqbwpouvhy-mxmp 50-300-40 mg Capsule
2 cap PO BID@0900,1700
prazosin 1 mg capsule
1 mg PO QPM
ipratropium-albuterol 0.5 mg-3 mg(2.5 mg base)/3 mL Solution For Nebulization
3 ml INHALATION R Q4HPRN PRN (Reason: SOB, cough)
ondansetron 4 mg Tablet,Disintegrating
4 mg PO Q4HPRN PRN (Reason: nausea/vomiting)
loratadine 10 mg Tablet
10 mg PO DAILY
Eliquis 5 mg Tablet
5 mg PO BID
Jardiance 10 mg Tablet
10 mg PO DAILY
gabapentin 600 mg Tablet
600 mg PO HS
polyethylene glycol 3350 17 gram Powder In Packet
17 g PO DAILY
rosuvastatin 20 mg Tablet
20 mg PO DAILY
clonidine 0.1 mg/24 hr Patch Weekly
0.1 mg transdermal Q7D Qty: 4 0RF
sucralfate [Carafate] 100 mg/mL suspension
10 ml PO AC Qty: 414 0RF
hydralazine 10 mg Tablet
50 mg PO DAILY@2100
clonidine HCl 0.1 mg Tablet
0.1 mg PO DAILY PRN (Reason: hypertension urgency)
amlodipine [Norvasc] 10 mg Tablet
10 mg PO DAILY
furosemide 20 mg Tablet
20 mg PO DAILY
lorazepam [Ativan] 1 mg Tablet
1 mg PO DAILY
fluticasone propion-salmeterol 232-14 mcg/actuation Aerosol Powdr Breath Activated
1 inh INHALATION BID
metoprolol succinate 50 mg Capsule,Sprinkle,Er 24hr
50 mg PO DAILY
hydralazine 10 mg tablet
20 mg PO DAILY
Discharge Orders:
Discharge Patient (As Directed); Ordered 08/14/25
Ordered By: Maicol Rob
Discharge Date and Time
Print Language: CITIZEN OF [place]
[2025-08-14] MEDS: CYMBALTA DELAYED RELEASE 90 MG PO (09:37)
[2025-08-14] MEDS: CATAPRES-TTS-1 0.1 MG TRANSDERM (09:38)
[2025-08-14 11:00] VITALS: BP 108/64
[2025-08-14] MEDS: DUONEB INH (11:07)
[2025-08-14] MEDS: FLUZONE HIGH-DOSE 2025-26 0.5 ML IM (11:40)
--- NOTE | 2025-08-14 13:04 | CM ---
Patient to return to [facility] today, but transport company unable to transport as patient has a power chair. Physician notified. IMM completed at 1pm.
[facility]
Report [phone]
[2025-08-14 15:00] VITALS: BP 135/69
[2025-08-14] MEDS: TYLENOL 650 MG PO (16:15)
[2025-08-14] MEDS: NEURONTIN 300 MG PO (16:16)
[2025-08-14] MEDS: MINIPRESS 1 MG PO (17:52)
[2025-08-14 20:18] VITALS: BP 118/75
[2025-08-14] MEDS: ELAVIL 10 MG PO (20:43)
[2025-08-14] MEDS: ATIVAN 0.5 MG PO (20:43)
[2025-08-14] MEDS: APRESOLINE 50 MG PO (20:44)
[2025-08-14] MEDS: NEURONTIN 600 MG PO (21:44)
[2025-08-14] MEDS: DESYREL 50 MG PO (21:44)
[2025-08-14 23:27] VITALS: BP 117/65
[2025-08-15] MEDS: TYLENOL 650 MG PO (02:30)
[2025-08-15 03:21] VITALS: BP 135/72
[2025-08-15] MEDS: ROXICODONE 5 MG PO ×2 (03:22→11:38)
[2025-08-15 05:11] VITALS: BMI 22.7
[2025-08-15 07:00] VITALS: BP 147/75
[2025-08-15] MEDS: CRESTOR 20 MG PO (07:32)
[2025-08-15] MEDS: MIRALAX 17 GRAMS PO (07:32)
[2025-08-15] MEDS: MUCINEX 600 MG PO (07:33)
[2025-08-15] MEDS: ELIQUIS 5 MG PO (07:33)
[2025-08-15] MEDS: PROTONIX 40 MG PO (07:33)
[2025-08-15] MEDS: FARXIGA 10 MG PO (07:34)
[2025-08-15] MEDS: CLARITIN 10 MG PO (07:34)
[2025-08-15] MEDS: OMNICEF 300 MG PO (07:34)
[2025-08-15] MEDS: NEURONTIN 100 MG PO (07:34)
[2025-08-15] MEDS: VIBRAMYCIN 100 MG PO (07:34)
[2025-08-15] MEDS: COLACE 200 MG PO (07:34)
[2025-08-15] MEDS: CARAFATE SUSPENSION 1 GM PO ×2 (07:35→11:18)
[2025-08-15] MEDS: FIORICET 2 TAB PO (07:35)
[2025-08-15] MEDS: ATIVAN 1 MG PO (07:43)
[2025-08-15] MEDS: APRESOLINE 20 MG PO (07:43)
[2025-08-15] MEDS: NORVASC 10 MG PO (07:44)
[2025-08-15] MEDS: TOPROL XL 50 MG PO (07:44)
[2025-08-15] MEDS: MS CONTIN (EXTENDED RELEASE) 15 MG PO (07:44)
[2025-08-15] MEDS: CYMBALTA DELAYED RELEASE 90 MG PO (07:47)
--- NOTE | 2025-08-15 10:06 | CM ---
Chart reviewed. Patient for discharge back to [facility] today
[facility] CM asking if [facility] driver is available to transport patient. Angela stated a ups driver is available and a time will be determined once ups driver speaks w/ the director. CM provided phone number to Angela so she can update CM on time
ups driver will pick patient up
Updated patient bedside. IMM verbally reviewed, copy provided, copy on chart
[facility]
Report: [phone] (ASK FOR NURSING)

Plan: Return to [facility]
[2025-08-15 11:00] VITALS: BP 132/67
--- NOTE | 2025-08-15 13:20 | PTCARENOTE ---
Patient's New pharmacy, [facility], in [place] is unable to be found in our system. [employer] spoke to Angela at [facility] about the issue. OK to fax paper prescriptions to [facility] and they will follow up.
== END 2025-08-15 13:55 | disposition home or self-care (01) | DRG 202 ==
LOC: 4 WEST ACU 00:52
PROVIDERS: Emergency Medicine; Hospitalist; ADMITTING PHYSICIAN Hospitalist; ATTENDING PHYSICIAN Hospitalist; EMERGENCY PHYSICIAN Emergency Medicine; FAMILY PHYSICIAN Family Medicine
PROC: 3E02340 Introduction of Influenza Vaccine into Muscle, Percutaneous Approach (ICD-10-PCS; 2025-08-14)
DX: J45.901 Unspecified asthma with (acute) exacerbation (principal); J18.9 Pneumonia, unspecified organism; F11.20 Opioid dependence, uncomplicated; I50.32 Chronic diastolic (congestive) heart failure; I13.0 Hypertensive heart and chronic kidney disease with heart failure and stage 1 through stage 4 chronic kidney disease, or unspecified chronic kidney disease; F32.A Depression, unspecified; N18.31 Chronic kidney disease, stage 3a; I48.0 Paroxysmal atrial fibrillation; G89.4 Chronic pain syndrome; E27.8 Other specified disorders of adrenal gland; R09.02 Hypoxemia; E78.00 Pure hypercholesterolemia, unspecified; I1A.0 Resistant hypertension; F41.9 Anxiety disorder, unspecified; Z23 Encounter for immunization; Z89.512 Acquired absence of left leg below knee; Z89.511 Acquired absence of right leg below knee; Z89.212 Acquired absence of left upper limb below elbow; I25.2 Old myocardial infarction; Z11.52 Encounter for screening for COVID-19; Z86.73 Personal history of transient ischemic attack (TIA), and cerebral infarction without residual deficits; Z86.711 Personal history of pulmonary embolism; Z79.01 Long term (current) use of anticoagulants
CPT/HCPCS: 71046; 80048; 80053; 82962; 83036; 83880; 85014; 85018; 85025; 85027; 87502; 87811; 93306; 94640; 96374; 96375; 97162; 99285